=== PATIENT | female | born 1965 | race Caucasian/White ===

== ENCOUNTER → 2020-03-12 10:11 | Outpatient (BNVA) | payer OTHER, SELFPAY | PROVIDERS: Family Provider Family Medicine; Visit Provider Family Medicine | DX: Z20.828 Contact with and (suspected) exposure to other viral communicable diseases (principal) | CPT/HCPCS: 87635 ==

== ENCOUNTER 2020-04-11 11:31 | Outpatient (CLI) | payer OTHER, SELFPAY ==
--- NOTE | 2020-04-11 11:35 | MM_ITS ---
WS: [id number] BILATERAL SCREENING DIGITAL MAMMOGRAM WITH CAD HISTORY: SCREENING COMPARISON: 03/12/2018 Bilateral CC and MLO views submitted. Computer aided detection analyzed. Breast composition: There are scattered areas of fibroglandular density. No suspicious masses, microc alcifications or architectural distortion. Lobulated cystic mass with calcification in the inferior L EFT breast near 6:00 posteriorly is stable. No new calcifications or nodules. MM/[place] [id number] IMPRESSION: BI-RADS: 2-Benign FOLLOW UP: 1 Year Follow-up
== END 2020-04-11 11:32 | disposition home or self-care (01) ==
LOC: RADSHAW 11:34
PROVIDERS: Family Provider Family Medicine; PCP Family Medicine; Visit Provider Family Medicine
DX: Z12.31 Encounter for screening mammogram for malignant neoplasm of breast (principal)
CPT/HCPCS: 77067

== ENCOUNTER 2021-07-09 09:35 | Observation (INO) | payer OTHER, SELFPAY ==
[2021-07-09] VITALS (18 sets, daily range): BP systolic 149–192; BP diastolic 69–99; PULSE 67–98; RESP 15–29; TEMP 36.6–38.1; O2SAT 86–96; BMI 56.5
--- NOTE | 2021-07-09 09:41 | XR_ITS ---
WS: [id number] CHEST XRAY TECHNIQUE: Portable chest. CLINICAL INFORMATION: sob COMPARISON: FINDINGS: Shallow inspiration. Heart: Cardiomegaly appears stable compared to 2019. Lungs: Mild pulmonary vascular congestion. No focal pneumonia or significant pleural fluid. Bones: Normal visualized bony structures. XR/XR chest 1V portable [id number] IMPRESSION: 1. Stable cardiomegaly. 2. Shallow inspiration. 3. Mild pulmonary vascular congestion.
--- NOTE | 2021-07-09 09:41 | ECG_ITS ---
[facility] Test Date: 2021-07-09 Pat Name: Camilla Tavares Department: Room: Gender: Female Stain Dipper: : 1965 Requested By: Marlon Orozco Order Number: [id number] Aria MD: Remigio Sheldon M.D. Measurements Intervals [place] Rate: 78 P: 65 [place]: 179 QRS: 19 QRSD: 104 T: 70 QT: 379 QTc: 434 Interpretive Statements SINUS RHYTHM LOW QRS VOLTAGE IN PRECORDIAL LEADS [QRS DEFLECTION < 1.0 mV IN CHEST LEADS] INCOMPLETE RIGHT BUNDLE BRANCH BLOCK [90+ ms QRS DURATION, TERMINAL R IN V1/V2, 40+ ms S IN I/aVL/V4/V5/V6] Compared to ECG 03/05/2019 11:46:22 Low QRS voltage now present Incomplete right bundle-branch block now present Electronically Signed On 07-09-2021 22:38:37 CDT by Remigio Sheldon M.D. [id number]
--- NOTE | 2021-07-09 09:52 | PC.NURSE ---
Patient reports fever and shortness of breath. Patient states her pcp told her she gained 34 lbs recently, bilateral ankle swelling. Patient alert and oriented. patient reports stress in her life lately with family Patient in bed, denies any needs at this time.
--- NOTE | 2021-07-09 09:54 | W.ED.SOB ---
Documented by User: LANIE Chavarria 07/10/21 07:01 HPI - SOB/Dyspnea General: Chief Complaint: Shortness of Breath/Dyspnea Stated Complaint: shortness of breath Time Seen by Provider: 07/09/21 09:41 History of Present Illness: HPI Narrative: Patient is a 56-year-old female comes to the ED with shortness of breath. Past medical history of diabetes. Patient shortness of breath started yesterday. Shortness of breath gets worse if she lays flat or with exertion. This morning she used an at home pulse ox to check her oxygen levels after she got up and let the dogs out and she says it was at 78%. She also endorses having a fever yesterday as well. Denies any other upper respiratory symptoms such as cough, sore throat, nasal congestion. She has not been around anybody with Covid or influenza. She is fully vaccinated including her influenza and COVID-19 vaccinations. Patient also reports having some chest pain that started about 3 days ago. Pain is located in the midsternal region. It radiates to patient's back and she also endorses some epigastric pain as well. She admits to currently being under a lot of stress at home. The patient saw her primary care physician Dr. Bowman this morning. Patient has gained 34 pounds in the last 3 months and he told patient to come here to the ED to be evaluated. Associated symptoms: Reports chest pain, fever(s) and orthopnea; Deny abdominal pain, nausea, palpitations or vomiting Review of Systems Const: Reports: fever(s) and chills; Denies: fatigue Eyes: Denies: change in vision or eye discomfort ENMT: Denies: throat pain, odynophagia, nasal discharge or nasal congestion Card: Reports: chest pain, swelling of feet/ankles (Bilateral legs), dyspnea on exertion and orthopnea; Denies: palpitations Resp: Reports: dyspnea; Denies: productive cough or non-productive cough GI: Denies: abdominal pain, nausea, vomiting, diarrhea, constipation or hematochezia : Denies: flank pain, dysuria or hematuria Musc: Denies: neck pain, back pain or extremity swelling Skin/Breast: Denies: rash or new lesions Neuro: Reports: headache(s); Denies: numbness in extremities or weakness in extremities PFS ED PFSH: Medical History Diabetes Family history of MO (myocardial infarction) Family history of thyroid disease Surgical History (Updated 07/09/21 @ 19:18 by Wayne Gutierrez MD) H/O: hysterectomy Cancer No pertinent past surgical history Family History (Updated 07/09/21 @ 19:19 by Wayne Gutierrez MD) Sister Cancer Nasopharyngeal cancer, junctional tumor Other Diabetes Family history of premature coronary artery disease No pertinent family history Social History (Updated 07/09/21 @ 19:19 by Wayne Gutierrez MD) Smoking and tobacco status: never smoked Alcohol intake: never Substance/Drug Use: never Household members: family Housing: House Physical Exam Const: COMMON NORMALS: patient oriented x3 and alert GENERAL APPEARANCE: cooperative HENMT: COMMON NORMALS: normocephalic HEAD & SCALP: normocephalic MOUTH: Normal oral and palatal mucosa present THROAT: posterior oropharynx normal and uvula midline Neck/C-Spine: COMMON NORMALS: supple GENERAL: Yes normal visual inspection Resp: COMMON NORMALS: normal respiratory effort, No retractions and No use of accessory muscles AUSCULTATION: diminished lung sounds bilateral (Diminished lung sounds mostly on right lung base.) in the lower lung vincent Cardio: COMMON NORMALS: regular rate, regular rhythm, S1 normal heart sound present, S2 normal heart sound present, No gallops present (Cardio), No clicks present (Cardio), No murmurs present (Cardio) and Peripheral pulses 2+ throughout RATE: regular rate RHYTHM: regular rhythm HEART SOUNDS: S1 normal heart sound present and S2 normal heart sound present PERIPHERAL PULSES: Peripheral pulses 2+ throughout GI: COMMON NORMALS: Normal to inspection, nondistended, normoactive bowel sounds present, Soft to palpation, non-tender and no masses PALPATION: Yes Soft to palpation : COMMON NORMALS: Yes no CVA tenderness BLADDER/KIDNEY EXAM: Yes no CVA tenderness Back/Pelvis: COMMON NORMALS: no CVA tenderness Extremity: GENERAL: Yes edema ( 1+ pitting edema around bilateral ankles.) Neuro: COMMON NORMALS: patient oriented x3 and moves all extremities SENSORIUM/ORIENTATION: Yes alert Skin: GENERAL SKIN EXAM: dry skin Course Vital Signs: Vital signs: Vital Signs Temperature 97.7 F 07/10/21 04:00 Pulse Rate 52 L 07/10/21 06:00 Respiratory Rate 20 H 07/10/21 04:00 Blood Pressure 166/83 07/10/21 04:00 Pulse Oximetry 93 07/10/21 04:00 MDM - SOB/Dyspnea Medical Decision Making Patient is a 56 female comes to the ED with fever and shortness of breath. Patient has a history of type 2 diabetes. She is not on any oxygen at home. Here in the ED patient is hypoxic and has been around 90% on room air. Respirations 26. Patient also developed a fever here in the ED with a temperature of 100.5. White blood cell count is normal. Chest x-ray shows some mild vascular congestion. D-dimer elevated at 1.04. CTA of chest showed groundglass infiltrates in both lungs but is worse on the right side. No PE noted. Covid was negative. Patient appears to be developing right lung pneumonia that is causing hypoxemia. I started her on some IV antibiotics and a dose of Decadron here in the ED. Home O2 eval was performed and patient qualifies for 2 L continuously. I talk with Dr. Qiu about patient case and he is going to take over patient care and present case to hospitalist for possible admission. Lab Data I reviewed the patient's lab results. : 07/10/21 05:22 07/10/21 05:22 Labs/Radiology: Radiology Impressions Chest X-Ray 07/09/21 09:41 IMPRESSION: 1. Stable cardiomegaly. 2. Shallow inspiration. 3. Mild pulmonary vascular congestion. Chest CTA 07/09/21 11:16 IMPRESSION: Some images limited due to body habitus 1. No evidence of pulmonary embolus. 2. Hazy groundglass infiltrates throughout both lungs worse in the RIGHT. Recommend correlation for viral pneumonia including Covid 19 pneumonia 3. No focal consolidation or pleural fluid. Laboratory Results WBC 9.8 10^3/uL (4.0-10.0) 07/09/21 09:50 RBC 3.43 10^6/uL (4.1-5.3) L 07/09/21 09:50 Hgb 9.9 g/dL (11.5-15.3) L 07/09/21 09:50 Hct 33.2 % (37.0-47.0) L 07/09/21 09:50 MCV 96.8 fl (81-99) 07/09/21 09:50 MCH 28.9 pg (28.0-34.0) 07/09/21 09:50 MCHC 29.8 g/dL (30.0-36.0) L 07/09/21 09:50 RDW 15.2 % (12.1-15.1) H 07/09/21 09:50 Plt Count 224 10^3/cmm (130-400) 07/09/21 09:50 MPV 8.5 fL (7.4-10.4) 07/09/21 09:50 Neut % (Auto) 85.3 % 07/09/21 09:50 Lymph % (Auto) 9.7 % 07/09/21 09:50 [place] % (Auto) 3.6 % 07/09/21 09:50 Eos % (Auto) 0.8 % 07/09/21 09:50 Baso % (Auto) 0.2 % 07/09/21 09:50 Neut # (Auto) 8.31 10^3/uL (1.8-7.7) H 07/09/21 09:50 Lymph # (Auto) 1.0 10^3/uL (0.8-4.8) 07/09/21 09:50 [place] # (Auto) 0.4 10^3/uL (0.2-0.9) 07/09/21 09:50 Eos # (Auto) 0.1 10^3/uL (0.0-0.8) 07/09/21 09:50 Baso # (Auto) 0.0 10^3/uL (0.0-0.1) 07/09/21 09:50 Nucleated RBC % (auto) 0 % 07/09/21 09:50 Nucleated RBCs # 0.0 /100WBC 07/09/21 09:50 D-Dimer 1.04 ug/mIFEU (0-0.59) H 07/09/21 09:50 Sodium 139 mmol/L (136-145) 07/09/21 09:50 Potassium 4.7 mmol/L (3.5-5.1) 07/09/21 09:50 Chloride 99 mmol/L (98-107) 07/09/21 09:50 Carbon Dioxide 30 mmol/L (22-29) H 07/09/21 09:50 Anion Gap 14.7 (5-19) 07/09/21 09:50 BUN 8 mg/dL (6-20) 07/09/21 09:50 Creatinine 0.5 mg/dL (0.5-0.9) 07/09/21 09:50 GFR Calculation 128.6 mL/min (90-130) 07/09/21 09:50 Glucose 213 mg/dL (65-115) H 07/09/21 09:50 Estimat Average Glucose 140 07/09/21 09:50 Hemoglobin A1c 6.5 % (4.0-6.0) H 07/09/21 09:50 Calculated Osmolality 293 mOsm/kg (285-295) 07/09/21 09:50 Calcium 9.5 mg/dL (8.5-10.5) 07/09/21 09:50 Total Bilirubin 0.4 mg/dL (0.15-1.2) 07/09/21 09:50 AST 15 U/L (0-32) 07/09/21 09:50 ALT 19 U/L (0-33) 07/09/21 09:50 Alkaline Phosphatase 111 IU/L (35-105) H 07/09/21 09:50 Troponin T Baseline 9 ng/L (0-10) 07/09/21 09:50 Troponin T 120 Minute 11.41 ng/L (0-10) H 07/09/21 12:10 Delta Troponin T 2.41 ABS# (0-10) 07/09/21 12:10 NT-Pro-B Natriuret Pep 187 pg/mL (0-125) H 07/09/21 09:50 Total Protein 6.3 g/dL (6.6-8.7) L 07/09/21 09:50 Albumin 4.2 g/dL (3.5-5.2) 07/09/21 09:50 Globulin 2.1 g/dL (1.3-4.6) 07/09/21 09:50 Nasal Influ A H1 2009 PCR Not detected (NOT DETECT) 07/09/21 09:55 Coronavirus 229E (PCR) Not detected (NOT DETECT) 07/09/21 09:55 Influenza A (H1) PCR Not detected (NOT DETECT) 07/09/21 09:55 Influenza A (H3) PCR Not detected (NOT DETECT) 07/09/21 09:55 Influenza Type A Ag Cancelled 07/09/21 11:45 Influenza Type A (PCR) Not detected (NOT DETECT) 07/09/21 09:55 Influenza Type B Ag Cancelled 07/09/21 11:45 Influenza Type B (PCR) Not detected (NOT DETECT) 07/09/21 09:55 SARS-CoV-2 (PCR) Not detected (NOT DETECT) 07/09/21 09:55 EKG Data EKG 1: EKG Interpretation Date: 07/09/21 EKG interpretation time: 09:59 Interpretation: Sinus rhythm, 78 bpm, no ST segment elevation or depression seen. Discharge Plan Discharge Patient Disposition: Admitted As Inpatient Admit Provider: Wayne Gutierrez Clinical Impression: Pneumonia, Hypoxemia Condition: Stable Sign Out Sign Out Data: Patient Sign Out occurred on 07/09/21 at 13:29. Patient's care was discussed, and care was transferred from to Kurtis Qiu MD. Coding Level of Care Code ED Duplicator Punch Operator for Chg Fwd Exam Comprehensive Documented by User: Kurtis Qiu MD 07/09/21 15:24 HPI - SOB/Dyspnea General: Chief Complaint: Shortness of Breath/Dyspnea Stated Complaint: shortness of breath Time Seen by Provider: 07/09/21 09:41 PFSH ED PFSH: Medical History Diabetes Family history of MO (myocardial infarction) Family history of thyroid disease Surgical History (Updated 07/09/21 @ 19:18 by Wayne Gutierrez MD) H/O: hysterectomy Cancer No pertinent past surgical history Family History (Updated 07/09/21 @ 19:19 by Wayne Gutierrez MD) Sister Cancer Nasopharyngeal cancer, junctional tumor Other Diabetes Family history of premature coronary artery disease No pertinent family history Social History (Updated 07/09/21 @ 19:19 by Wayne Gutierrez MD) Smoking and tobacco status: never smoked Alcohol intake: never Substance/Drug Use: never Household members: family Housing: House Course Vital Signs: Vital signs: Vital Signs Temperature 97.7 F 07/10/21 04:00 Pulse Rate 52 L 07/10/21 06:00 Respiratory Rate 20 H 07/10/21 04:00 Blood Pressure 166/83 07/10/21 04:00 Pulse Oximetry 93 07/10/21 04:00 MDM - SOB/Dyspnea Medical Decision Making Patient is a 56 female comes to the ED with fever and shortness of breath. Patient has a history of type 2 diabetes. She is not on any oxygen at home. Here in the ED patient is hypoxic and has been around 90% on room air. Respirations 26. Patient also developed a fever here in the ED with a temperature of 100.5. White blood cell count is normal. Chest x-ray shows some mild vascular congestion. D-dimer elevated at 1.04. CTA of chest showed groundglass infiltrates in both lungs but is worse on the right side. No PE noted. Covid was negative. Patient appears to be developing right lung pneumonia that is causing hypoxemia. I started her on some IV antibiotics and a dose of Decadron here in the ED. GIVEN THE FACT THE PATIENT IS COVID NEGATIVE, HAS INCREASED WORK OF BREATHING, NEW OXYGEN REQUIREMENT, BILATERAL INFILTRATE, presentation IS CONCERNING FOR POSSIBLE BACTERIAL PNEUMONIA. I talk with Dr. Qiu about patient case and he is going to take over patient care and present case. Lab Data : 07/10/21 05:22 07/10/21 05:22 Labs/Radiology: Radiology Impressions Chest X-Ray 07/09/21 09:41 IMPRESSION: 1. Stable cardiomegaly. 2. Shallow inspiration. 3. Mild pulmonary vascular congestion. Chest CTA 07/09/21 11:16 IMPRESSION: Some images limited due to body habitus 1. No evidence of pulmonary embolus. 2. Hazy groundglass infiltrates throughout both lungs worse in the RIGHT. Recommend correlation for viral pneumonia including Covid 19 pneumonia 3. No focal consolidation or pleural fluid. Laboratory Results WBC 9.8 10^3/uL (4.0-10.0) 07/09/21 09:50 RBC 3.43 10^6/uL (4.1-5.3) L 07/09/21 09:50 Hgb 9.9 g/dL (11.5-15.3) L 07/09/21 09:50 Hct 33.2 % (37.0-47.0) L 07/09/21 09:50 MCV 96.8 fl (81-99) 07/09/21 09:50 MCH 28.9 pg (28.0-34.0) 07/09/21 09:50 MCHC 29.8 g/dL (30.0-36.0) L 07/09/21 09:50 RDW 15.2 % (12.1-15.1) H 07/09/21 09:50 Plt Count 224 10^3/cmm (130-400) 07/09/21 09:50 MPV 8.5 fL (7.4-10.4) 07/09/21 09:50 Neut % (Auto) 85.3 % 07/09/21 09:50 Lymph % (Auto) 9.7 % 07/09/21 09:50 [place] % (Auto) 3.6 % 07/09/21 09:50 Eos % (Auto) 0.8 % 07/09/21 09:50 Baso % (Auto) 0.2 % 07/09/21 09:50 Neut # (Auto) 8.31 10^3/uL (1.8-7.7) H 07/09/21 09:50 Lymph # (Auto) 1.0 10^3/uL (0.8-4.8) 07/09/21 09:50 [place] # (Auto) 0.4 10^3/uL (0.2-0.9) 07/09/21 09:50 Eos # (Auto) 0.1 10^3/uL (0.0-0.8) 07/09/21 09:50 Baso # (Auto) 0.0 10^3/uL (0.0-0.1) 07/09/21 09:50 Nucleated RBC % (auto) 0 % 07/09/21 09:50 Nucleated RBCs # 0.0 /100WBC 07/09/21 09:50 D-Dimer 1.04 ug/mIFEU (0-0.59) H 07/09/21 09:50 Sodium 139 mmol/L (136-145) 07/09/21 09:50 Potassium 4.7 mmol/L (3.5-5.1) 07/09/21 09:50 Chloride 99 mmol/L (98-107) 07/09/21 09:50 Carbon Dioxide 30 mmol/L (22-29) H 07/09/21 09:50 Anion Gap 14.7 (5-19) 07/09/21 09:50 BUN 8 mg/dL (6-20) 07/09/21 09:50 Creatinine 0.5 mg/dL (0.5-0.9) 07/09/21 09:50 GFR Calculation 128.6 mL/min (90-130) 07/09/21 09:50 Glucose 213 mg/dL (65-115) H 07/09/21 09:50 Estimat Average Glucose 140 07/09/21 09:50 Hemoglobin A1c 6.5 % (4.0-6.0) H 07/09/21 09:50 Calculated Osmolality 293 mOsm/kg (285-295) 07/09/21 09:50 Calcium 9.5 mg/dL (8.5-10.5) 07/09/21 09:50 Total Bilirubin 0.4 mg/dL (0.15-1.2) 07/09/21 09:50 AST 15 U/L (0-32) 07/09/21 09:50 ALT 19 U/L (0-33) 07/09/21 09:50 Alkaline Phosphatase 111 IU/L (35-105) H 07/09/21 09:50 Troponin T Baseline 9 ng/L (0-10) 07/09/21 09:50 Troponin T 120 Minute 11.41 ng/L (0-10) H 07/09/21 12:10 Delta Troponin T 2.41 ABS# (0-10) 07/09/21 12:10 NT-Pro-B Natriuret Pep 187 pg/mL (0-125) H 07/09/21 09:50 Total Protein 6.3 g/dL (6.6-8.7) L 07/09/21 09:50 Albumin 4.2 g/dL (3.5-5.2) 07/09/21 09:50 Globulin 2.1 g/dL (1.3-4.6) 07/09/21 09:50 Nasal Influ A H1 2008 PCR Not detected (NOT DETECT) 07/09/21 09:55 Coronavirus 229E (PCR) Not detected (NOT DETECT) 07/09/21 09:55 Influenza A (H1) PCR Not detected (NOT DETECT) 07/09/21 09:55 Influenza A (H3) PCR Not detected (NOT DETECT) 07/09/21 09:55 Influenza Type A Ag Cancelled 07/09/21 11:45 Influenza Type A (PCR) Not detected (NOT DETECT) 07/09/21 09:55 Influenza Type B Ag Cancelled 07/09/21 11:45 Influenza Type B (PCR) Not detected (NOT DETECT) 07/09/21 09:55 SARS-CoV-2 (PCR) Not detected (NOT DETECT) 07/09/21 09:55 Imaging Data Other Imaging: Radiologist's impression: [facility] [address] [address] [address] Scan Report Signed Patient: Camilla Tavares Unit #: [id number] : 1965 Age/Sex: 56 / F ADM Date: 07/09/21 Loc: ER Room/Bed: Attending Dr: Ordering Provider/Ordering MD: Marlon Orozco Date of Service: 07/09/21 Procedure(s): CT angio chest PE protcl [id number] Accession Number(s): [id number] Report Number: [id number] WS: [id number] CTA OF THE CHEST WITH PULMONARY EMBOLISM PROTOCOL TECHNIQUE: High-resolution contrast enhanced CTA of the chest with coronal and sagittal reformatted images with pulmonary embolism protocol. MIP images are also reviewed. CLINICAL INFORMATION: SOB, CP, tachypnea COMPARISON: 3 26,017 DLP: 597.[address] scans at [facility] use at least one of these dose optimization techniques: automated exposure control; mA and/or kV adjustment per patient size (includes targeted exams where dose is matched to clinical indication); or iterative reconstruction. FINDINGS: Some images degraded due to body habitus Proximal main pulmonary arteries are normal. Normal segmental pulmonary arteries. Distal most pulmonary arteries not well evaluated due to artifact. Hazy groundglass infiltrates throughout both lungs worse in the RIGHT upper and lower lobes. No focal consolidation or pleural fluid. Recommend correlation for viral pneumonia. Normal caliber thoracic aorta. No mediastinal or hilar lymphadenopathy. No axillary lymphadenopathy. Hepatomegaly. Normal GE junction. Celiac and SMA are patent in the upper abdomen. Hypertrophic changes thoracic spine. CT/CT angio chest PE protcl [id number] IMPRESSION: Some images limited due to body habitus ? 1.? No evidence of pulmonary embolus. 2.? Hazy groundglass infiltrates throughout both lungs worse in the RIGHT. Recommend correlation for viral pneumonia including Covid 19 pneumonia 3.? No focal consolidation or pleural fluid. ? Dictated By: Jim Qureshi MD Signed By: Jim Qureshi MD Signed Date/Time: 07/09/21 1237 DD/ [address] [address] XRay Report Signed Patient: Camilla Tavares Unit #: [id number] : 1965 Age/Sex: 56 / F ADM Date: 07/09/21 Loc: ER Room/Bed: Attending Dr: Ordering Provider/Ordering MD: Marlon Orozco Date of Service: 07/09/21 Procedure(s): XR chest 1V portable [id number] Accession Number(s): [id number] Report Number: [id number] WS: [id number] CHEST XRAY TECHNIQUE: Portable chest. CLINICAL INFORMATION: sob COMPARISON: FINDINGS: Shallow inspiration. Heart: Cardiomegaly appears stable compared to 2019. Lungs: Mild pulmonary vascular congestion. No focal pneumonia or significant pleural fluid. Bones: Normal visualized bony structures. XR/XR chest 1V portable [id number] IMPRESSION: ? 1.? Stable cardiomegaly. 2.? Shallow inspiration. 3.? Mild pulmonary vascular congestion. ? Dictated By: Jim Qureshi MD Signed By: Jim Qureshi MD Signed Date/Time: 07/09/21 1015 DD/ 1013 Discharge Plan Discharge Patient Disposition: Admitted As Inpatient Admit Provider: Wayne Gutierrez Clinical Impression: Pneumonia, Hypoxemia Condition: Stable Sign Out Sign Out Data: Patient Sign Out occurred on 07/09/21 at 13:29. Patient's care was discussed, and care was transferred from to Kurtis Qiu MD. Coding Level of Care Code ED Duplicator Punch Operator for Chg Fwd Exam Comprehensive
[2021-07-09 09:57] LABS: Basophils % 0.2 %; Eosinophils # 0.1 10^3/uL (0.0-0.8); Eosinophils % 0.8 %; Hematocrit 33.2 % (37.0-47.0); Hemoglobin 9.9 g/dL (11.5-15.3); Lymphocytes % 9.7 %; Mean Corpuscular HGB Conc 29.8 g/dL (30.0-36.0); Mean Corpuscular Hemoglobin 28.9 pg (28.0-34.0); Mean Corpuscular Volume 96.8 fl (81-99); Mean Platelet Volume 8.5 fL (7.4-10.4); Monocytes # 0.4 10^3/uL (0.2-0.9); Monocytes % 3.6 %; Neutrophils # 8.31 10^3/uL (1.8-7.7); Neutrophils % 85.3 %; Nucleated Red Blood Cells % 0 %; Platelet Count 224 10^3/cmm (130-400); Red Blood Count 3.43 10^6/uL (4.1-5.3); Red Cell Distribution Width 15.2 % (12.1-15.1); White Blood Count 9.8 10^3/uL (4.0-10.0)
--- NOTE | 2021-07-09 10:13 | PC.NURSE ---
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
[2021-07-09 10:24] LABS: D Dimer 1.04 ug/mIFEU (0-0.59)
[2021-07-09 10:37] LABS: Troponin(5th) Baseline 9 ng/L (0-10)
[2021-07-09 10:43] LABS: Alanine Aminotransferase 19 U/L (0-33); Albumin Level 4.2 g/dL (3.5-5.2); Alkaline Phosphatase 111 IU/L (35-105); Anion Gap 14.7 (5-19); Aspartate Amino Transferase 15 U/L (0-32); Blood Urea Nitrogen 8 mg/dL (6-20); Calcium 9.5 mg/dL (8.5-10.5); Carbon Dioxide 30 mmol/L (22-29); Chloride 99 mmol/L (98-107); Globulin 2.1 g/dL (1.3-4.6); Glomerular Filtration Rate 128.6 mL/min (90-130); Glucose 213 mg/dL (65-115); NT Pro B Type Natriuretic Pept 187 pg/mL (0-125); Osmolality Calculated 293 mOsm/kg (285-295); Potassium 4.7 mmol/L (3.5-5.1); Sodium 139 mmol/L (136-145); Total Bilirubin 0.4 mg/dL (0.15-1.2); Total Protein 6.3 g/dL (6.6-8.7)
--- NOTE | 2021-07-09 11:16 | CT_ITS ---
WS: [id number] CTA OF THE CHEST WITH PULMONARY EMBOLISM PROTOCOL TECHNIQUE: High-resolution contrast enhanced CTA of the chest with coronal and sagittal reformatted i mages with pulmonary embolism protocol. MIP images are also reviewed. CLINICAL INFORMATION: SOB, CP, tachypnea COMPARISON: 3 26,017 DLP: 597.[address] scans at [facility] use at least one of these dose optimization techniques: automated e xposure control; mA and/or kV adjustment per patient size (includes targeted exams where dose is matc hed to clinical indication); or iterative reconstruction. FINDINGS: Some images degraded due to body habitus Proximal main pulmonary arteries are normal. Normal segmental pulmonary arteries. Distal most pulmona ry arteries not well evaluated due to artifact. Hazy groundglass infiltrates throughout both lungs wo rse in the RIGHT upper and lower lobes. No focal consolidation or pleural fluid. Recommend correlatio n for viral pneumonia. Normal caliber thoracic aorta. No mediastinal or hilar lymphadenopathy. No axillary lymphadenopathy. Hepatomegaly. Normal GE junction. Celiac and SMA are patent in the upper abdomen. Hypertrophic change s thoracic spine. CT/CT angio chest PE protcl [id number] IMPRESSION: Some images limited due to body habitus 1. No evidence of pulmonary embolus. 2. Hazy groundglass infiltrates throughout both lungs worse in the RIGHT. Farhan mmend correlation for viral pneumonia including Covid 19 pneumonia 3. No focal consolidation or pleural fluid.
--- NOTE | 2021-07-09 11:41 | ECG_ITS ---
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 Measurements Intervals [place] Rate: 82 P: 46 [place]: 162 QRS: -3 QRSD: 104 T: 46 QT: 374 QTc: 438 Interpretive Statements SINUS RHYTHM LOW QRS VOLTAGE IN PRECORDIAL LEADS [QRS DEFLECTION < 1.0 mV IN CHEST LEADS] INCOMPLETE RIGHT BUNDLE BRANCH BLOCK [90+ ms QRS DURATION, TERMINAL R IN V1/V2, 40+ ms S IN I/aVL/V4/V5/V6] Compared to ECG 07/09/2021 09:59:36 No significant changes Electronically Signed On 07-09-2021 22:59:19 CDT by Reimgio Sheldon M.D. [id number]
[2021-07-09] MEDS: iohexol 350 mg/mL 100 mL Btl IV (12:10)
[2021-07-09] MEDS: ketorolac 30 mg/mL INJ IVP (12:13)
[2021-07-09 12:25] LABS: Adenovirus Not Detected (NOT DETECT); Chlamydia Pneumoniae Not Detected (NOT DETECT); Coronavirus 229E,HKU1,NL63,OC4 Not Detected (NOT DETECT); Human Metapneumovirus Not Detected (NOT DETECT); Human Rhinovirus/Enterovirus Not Detected (NOT DETECT); Influenza A Not Detected (NOT DETECT); Influenza A H1 Not Detected (NOT DETECT); Influenza A H1-2009 Not Detected (NOT DETECT); Influenza A H3 Not Detected (NOT DETECT); Influenza B Not Detected (NOT DETECT); Mycoplasma Pneumoniae Not Detected (NOT DETECT); Parainfluenza Virus Type 1 Not Detected (NOT DETECT); Parainfluenza Virus Type 2 Not Detected (NOT DETECT); Parainfluenza Virus Type 3 Not Detected (NOT DETECT); Parainfluenza Virus Type 4 Not Detected (NOT DETECT); Respiratory Syncytial Virus A Not Detected (NOT DETECT); Respiratory Syncytial Virus B Not Detected (NOT DETECT); SARS-COV-2 Not Detected (NOT DETECT)
[2021-07-09 12:44] LABS: Troponin 5 2HR 11.41 ng/L (0-10)
[2021-07-09 12:48] LABS: Troponin 5 2HR Delta 2.41 ABS# (0-10)
[2021-07-09] MEDS: acetaminophen 500 mg Tablet 1000 MG PO (13:24)
[2021-07-09] MEDS: dexamethasone 4 mg/mL INJ 8 MG IVP (13:25)
[2021-07-09] MEDS: cefTRIAXone 1,000 MG in sodium chloride 0.9% (plus) 50 ML 100 MG IV (13:54)
[2021-07-09] MEDS: azithromycin 500 MG in sodium chloride 0.9% 250 ML 250 MG IV (13:57)
[2021-07-09 14:25] LABS: Influenza A Not Detected (NOT DETECT); Influenza A H1 Not Detected (NOT DETECT); Influenza A H1-2009 Not Detected (NOT DETECT); Influenza A H3 Not Detected (NOT DETECT); Influenza B Not Detected (NOT DETECT); Results from Genmark
--- NOTE | 2021-07-09 15:41 | ECG_ITS ---
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 Measurements Intervals [place] Rate: 74 P: 64 [place]: 183 QRS: -16 QRSD: 109 T: 66 QT: 414 QTc: 461 Interpretive Statements SINUS RHYTHM INCOMPLETE RIGHT BUNDLE BRANCH BLOCK [90+ ms QRS DURATION, TERMINAL R IN V1/V2, 40+ ms S IN I/aVL/V4/V5/V6] Compared to ECG 07/09/2021 12:20:10 No significant changes Electronically Signed On 07-09-2021 23:01:47 CDT by Remigio Sheldon M.D. [id number]
[2021-07-09 16:20] LABS: Troponin 5 6HR 10.01 ng/L (0-10)
[2021-07-09 16:30] LABS: Troponin 5 6HR Delta 1.01 ng/L (0-12)
--- NOTE | 2021-07-09 16:53 | PC.NURSE ---
Attempted to call report, receiving RN is unable to get report at this time.
--- NOTE | 2021-07-09 17:26 | P.HP_ITS ---
Providers/Chief Complaint Admitting Physician: Wayne Gutierrez MD Primary Care Provider: Marlon Bowman MD Chief Complaint: shortness of breath History of Present Illness Camilla Tavares is a 56 year old female who has history of diabetes, hypertension, underage anemia, came in for chief complaint of worsening shortness of breath. Patient has been experiencing orthopnea, PND, weight gain along fever for last few days. As per the patient she has gained about 34 pounds in 90 days. For last 4 day her shortness of breath has been getting worse, especially got worse in supine position, endorsing orthopnea PND. Low- grade fever noted as well. She is vaccinated. This morning her O2 saturation was 78% room air when she let her dogs out. With her shortness of breath chest pain is also associated with radiation to her back and epigastric region. Patient is stating that her symptoms roughly started on Thursday, symptoms gradually got worse, she also spiked fever 102 at home, she has not noticed any diarrhea, chest pain, emesis. She is endorsing neck pain, left arm pain however no active chest pain. She is endorsing to snoring at night. Does not use oxygen at home. In the ER she was requiring 2 L of oxygen, which is new, she was given ceftriaxone azithromycin however viral panel is negative, cta did not show any signs of consolidation or pe, convalesced opacities could be secondary to chf, requested bnp, lasix iv dose 60 mg, Review of Systems Const: Reports: fever(s), chills, body aches, change in weight and fatigue Eyes: Reports: change in vision ENMT: Denies: throat pain Card: Reports: chest pain, swelling of feet/ankles, dyspnea on exertion and orthopnea Resp: Reports: dyspnea GI: Denies: abdominal pain : Denies: flank pain Musc: Denies: neck pain Skin/Breast: Denies: rash Neuro: Denies: headache(s) Psych: Reports: anxiety Endo: Denies: polyuria [place]/Lymph: Denies: easy bruising All/Imm: Denies: urticaria Medications/Allergies Home Medications Medication Instructions Recorded Confirmed Last Taken Type acetaminophen 500 mg tablet 1,000 mg PO Q6H PRN 07/09/21 07/09/21 Unknown History dulaglutide 1.5 mg/0.5 mL 1.5 mg SUBCUT Q7D 07/09/21 07/09/21 07/07/21 History subcutaneous pen injector (Trulicity) ferrous sulfate 325 mg (65 mg 325 mg PO BEDTIME 07/09/21 07/09/21 07/07/21 History iron) tablet (iron) fluoxetine 40 mg capsule 60 mg PO BEDTIME 07/09/21 07/09/21 07/07/21 History hydrochlorothiazide 12.5 mg tablet 12.5 mg PO BEDTIME 07/09/21 07/09/21 07/07/21 History ibuprofen 200 mg tablet 400 mg PO Q6H PRN 07/09/21 07/09/21 Unknown History insulin glargine 100 unit/mL (3 See Rx Instructions .ROUTE .COMPLEX 07/09/21 07/09/21 Unknown History mL) subcutaneous pen (Lantus Solostar U-100 Insulin) lisinopril 10 mg tablet 10 mg PO BEDTIME 07/09/21 07/09/21 07/07/21 History metformin 500 mg tablet,extended 500 mg PO BEDTIME 07/09/21 07/09/21 07/07/21 History release 24 hr last filled 05/06/21 potassium chloride 10 mEq 10 meq PO BEDTIME 07/09/21 07/09/21 07/07/21 History tablet,extended release rosuvastatin 20 mg tablet 20 mg PO BEDTIME 07/09/21 07/09/21 07/07/21 History sitagliptin 100 mg tablet (Januvia) 100 mg PO BEDTIME 07/09/21 07/09/21 07/07/21 History Allergies Allergy/AdvReac Type Severity Reaction Status Date / Time No Known Allergies Allergy Verified 07/09/21 11:32 PFSH Acute PFSH: Medical History Diabetes Family history of [place] (myocardial infarction) Family history of thyroid disease Surgical History (Updated 07/09/21 @ 19:18 by Wayne Gutierrez MD) H/O: hysterectomy Cancer No pertinent past surgical history Family History (Updated 07/09/21 @ 19:19 by Wayne Gutierrez MD) Sister Cancer Nasopharyngeal cancer, junctional tumor Other Diabetes Family history of premature coronary artery disease No pertinent family history Social History (Updated 07/09/21 @ 19:19 by Wayne Gutierrez MD) Smoking and tobacco status: never smoked Alcohol intake: never Substance/Drug Use: never Household members: family Housing: House Vitals/I&O/Wt Last Vital Signs Temp 100.5 F H 07/09/21 13:20 Pulse 95 07/09/21 14:25 Resp 26 H 07/09/21 14:25 BP 149/76 07/09/21 14:25 Pulse Ox 93 07/09/21 14:25 07/09/21 07/09/21 07/09/21 06:59 14:59 22:59 Intake Total 300 / 300 Balance 300 / 300 Weight last 48 hrs Weight 158.757 kg Physical Exam Narrative: Morbid obese female Currently on 2 L cannula Febrile Pedal edema Abdomen is soft, nontender EOMI, PERRLA Nonfocal neuro exam S1, S2 sinus rhythm Pedal edema 3+ Currently on 2 L nasal cannula No active labored breathing No conversational dyspnea Very comfortable Family at the bedside Data : 07/09/21 09:50 07/09/21 09:50 A&P Assessment and plan (1) Pneumonia: Status: Acute (2) Hypoxemia: Status: Acute Plan Acute hypoxia Likely related to underlying CHF Patient is endorsing to snoring, will do overnight pulse ox study, rule out sleep apnea We will request BNP and echo Will Give her 1 dose of Lasix IV She was treated for community-acquired pneumonia with ceftriaxone and azithromycin which I will continue for now We will keep her on cardiac consistent carb diet For diabetes keep her on sliding scale check A1c level DuoNeb every 4 as needed D-dimer is high however no signs of PE, will check venous Doppler Viral panel negative , Sputum culture Cardiac consistent carb diet Patient is full code Attestations Medical Necessity Statement*: For acute hypoxemia patient will need observation less than 48 hours in the hospital Time Spent in Patient Care: 35mins Coding Level of Care Code 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
--- NOTE | 2021-07-09 17:31 | USCV_ITS ---
Camilla Tavares Age: 56 Gender: F : 1965 Exam Date: 07/09/2021 21:44 Ordering Phys: Wayne Gutierrez MD Technologist: Hunter Shaver Exam Location: [facility] [place] Indication: Congestive heart failure BP: / HR: 72 Rhythm: Sinus Technical Quality: Technically difficult study MEASUREMENTS (Male / Female) Normal Values 2D ECHO LV Diastolic Diameter PLAX 3.0 cm 4.2 - 5.9 / 3.9 - 5.3 cm LV Systolic Diameter PLAX 1.6 cm IVS Diastolic Thickness 1.2 cm 0.6 - 1.0 / 0.6 - 0.9 cm IVS Systolic Thickness 1.8 cm LVPW Diastolic Thickness 1.5 cm 0.6 - 1.0 / 0.6 - 0.9 cm LVPW Systolic Thickness 1.8 cm LVOT Diameter 2.0 cm LV Ejection Fraction 2D Teich 79.4 % LV Ejection Fraction MOD 2C 70.1 % LV Ejection Fraction 2C AL 69.5 % LA Diameter 4.3 cm LA Width 3.8 cm LA Height 6.1 cm Aorta at Sinotubular Diameter 3.0 cm M-MODE Aortic Annulus Diameter 2.7 cm LA Ao Ratio MM 2.0 MV E Point Septal Separation 1.4 cm DOPPLER AV Peak Velocity 214.0 cm/s LVOT Peak Velocity 86.0 cm/s AV Area Cont Eq vti 1.4 cm squared AV Area Cont Eq pk 1.3 cm squared MV Peak Velocity 93.0 cm/s MV Area PHT 4.3 cm squared Mitral E to A Ratio 1.0 MV E' Velocity 48.0 cm/s Mitral E to MV E' Ratio 9.5 Mitral E to LV E' Lateral Ratio 10.0 Mitral E to LV E' Septal Ratio 9.1 TR Peak Velocity 146.7 cm/s TR Peak Gradient 8.6 mmHg TR Mean Velocity 88.8 cm/s TR Mean Gradient 3.7 mmHg TR Velocity Time Integral 30.3 cm Right Atrial Pressure 13.0 mmHg Pulmonary Artery Systolic Pressu 21.6 mmHg PV Peak Velocity 127.0 cm/s RV Acceleration Time 0.1 s RV Ejection Time 0.3 s RV AcT/ET 0.3 FINDINGS Left Ventricle Normal left ventricular cavity size. Normal left ventricular systolic function. Left ventricular ejection fraction is estimated at 60-65 %. Although no diagnostic regional wall motion abnormality could be identified, this possibility cannot be completely excluded. Interpretation limited by off axis images Normal diastolic function. Right Ventricle Normal right ventricular size and systolic function. Right ventricular systolic pressure 26 mmHg. Right Atrium Normal right atrial size. Right atrial pressure estimated at 15 mmHg. Left Atrium Mildly increased left atrial size. Mitral Valve Structurally normal mitral valve. No mitral valve stenosis. No significant mitral valve regurgitation. Aortic Valve Aortic valve not well visualized. No aortic valve stenosis. No aortic valve regurgitation. Tricuspid Valve Tricuspid valve not well visualized. Pulmonic Valve Pulmonic valve not well visualized. No pulmonary valve stenosis. Trace pulmonary valve regurgitation. Pericardium No pericardial effusion. Aorta Normal size aortic root and proximal ascending aorta. Dilated inferior vena cava with decreased respiratory respiratory variation. CONCLUSIONS 1. This is a technically difficult study with off axis images. 2. Normal left ventricular cavity size and systolic function. Left ventricular ejection fraction is estimated at 60-65 %. Although no diagnostic regional wall motion abnormality could be identified, this possibility cannot be completely excluded. Normal diastolic function. 3. Dilated inferior vena cava with decreased respiratory respiratory variation. 4. Right atrial pressure estimated at 15 mmHg. 5. Pulmonary artery pressure estimated at 26 mmHg. 6. No prior similar studies to compare. Eugenia Suero MD (Electronically Signed) Final Date: 10 July 2021 11:55 S
[2021-07-09 17:59] LABS: NT Pro B Type Natriuretic Pept 264 pg/mL (0-125); Procalcitonin 0.09 ng/mL (0-0.5)
--- NOTE | 2021-07-09 18:10 | PC.NURSE ---
Report give to floor.
[2021-07-09 18:44] LABS: Glucose Point of Care 274 mg/dL (70-110)
[2021-07-09] MEDS: insulin lispro 100 unit/1 mL SUBCUT (18:45)
[2021-07-09] MEDS: FUROsemide 10 mg/mL SDV 10mL 60 MG IVP (18:46)
[2021-07-09] MEDS: acetaminophen 500 mg Tablet PO (19:25)
[2021-07-09] MEDS: enoxaparin 40 mg/0.4 mL Syringe SUBCUT (20:32)
[2021-07-09] MEDS: ferrous sulfate EC 325 mg Tablet PO (20:32)
[2021-07-09] MEDS: hydroCHLOROthiazide 25 mg Tablet 12.5 MG PO (20:32)
[2021-07-09] MEDS: lisinopril 10 mg Tablet PO (20:33)
[2021-07-09 21:20] LABS: Glucose Point of Care 288 mg/dL (70-110)
[2021-07-09] MEDS: insulin glargine 100 units/1 mL 90 UNIT SUBCUT (21:43)
[2021-07-09 22:04] LABS: Estmated Average Glucose 140; Hemoglobin A1C 6.5 % (4.0-6.0)
[2021-07-10] VITALS (13 sets, daily range): BP systolic 127–166; BP diastolic 71–88; PULSE 52–85; RESP 13–21; TEMP 36.5–36.9; O2SAT 82–97
[2021-07-10] MEDS: acetaminophen 500 mg Tablet PO ×2 (03:38→14:56)
[2021-07-10 05:24] LABS: ABG PCO2 52.7 mmHg (35-45); Arterial Blood Gas Hematocrit 30.8 % (37-47); Base Excess ABG 6.5 mmol/L (-2.0-2.0); Blood Gas Allen Test Pos; Blood Gas Sample Type Arterial; HCO3 ABG 32.4 mmol/L (22-26); PO2 ABG 90.2 mmHg (80.0-100.0)
[2021-07-10 05:25] LABS: Blood Gas Sample Site Radial, right; Oxygen Device NC
[2021-07-10 05:36] LABS: Basophils % 0.1 %; Hemoglobin 9.8 g/dL (11.5-15.3); Lymphocytes % 8.4 %; Mean Corpuscular HGB Conc 29.7 g/dL (30.0-36.0); Mean Corpuscular Hemoglobin 28.7 pg (28.0-34.0); Mean Corpuscular Volume 96.8 fl (81-99); Mean Platelet Volume 9.2 fL (7.4-10.4); Monocytes # 0.3 10^3/uL (0.2-0.9); Monocytes % 2.6 %; Neutrophils # 10.46 10^3/uL (1.8-7.7); Neutrophils % 88.4 %; Nucleated Red Blood Cells % 0 %; Platelet Count 249 10^3/cmm (130-400); Red Blood Count 3.41 10^6/uL (4.1-5.3); Red Cell Distribution Width 14.9 % (12.1-15.1); White Blood Count 11.8 10^3/uL (4.0-10.0)
[2021-07-10 05:47] LABS: Carbon Dioxide 28 mmol/L (22-29); Potassium 4.8 mmol/L (3.5-5.1); Sodium 137 mmol/L (136-145)
[2021-07-10 06:06] LABS: Anion Gap 16.8 (5-19); Blood Urea Nitrogen 12 mg/dL (6-20); C Reactive Protein 84.2 mg/L (0.0-4.9); Calcium 9.8 mg/dL (8.5-10.5); Chloride 97 mmol/L (98-107); Glomerular Filtration Rate 128.6 mL/min (90-130); Glucose 265 mg/dL (65-115); Magnesium 1.8 mg/dL (1.7-2.3); Osmolality Calculated 293 mOsm/kg (285-295)
[2021-07-10 06:14] LABS: Glucose Point of Care 222 mg/dL (70-110)
--- NOTE | 2021-07-10 06:21 | PC.NURSE ---
PATIENT STATES SHE WILL GET UP TO CHAIR WHEN IT IS CLOSER TO BREAKFAST TIME. PATIENT IS AD SHIVANI, ACTIVITY ENCOURAGED.
[2021-07-10] MEDS: sennosides-docusate Tablet 1 TAB PO (08:09)
[2021-07-10] MEDS: azithromycin 250 mg Tablet 500 MG PO (08:09)
[2021-07-10] MEDS: insulin lispro 100 unit/1 mL SUBCUT ×3 (08:09→18:23)
[2021-07-10] MEDS: FUROsemide 40 mg Tablet PO (08:09)
--- NOTE | 2021-07-10 09:54 | PC.CHAP ---
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 [] Patient/Family/Request visit [] Outpatient visit [] Follow-up visit [] Physician referral [] Code/Alert x] Routine visit [] Staff referral [] Actively dying [] Patient sleeping [] Family support [] [] Out of room [] Palliative care [] [] Receiving care in room [] Pre-surgical visit [] Trauma [] Long length of stay [] ICU visit [] Other: Relational/Emotional Strength [] Patient feels connected with others/family/visitors/staff [] Distress [] Loneliness/isolation [] Abandonment Spirituality of Patient [] Person of Dior [] Attends Islam of their Dior [] Believes in Prayer [] Reads Bible or Mu-Ism materials [] There are Spiritual issues to be addressed Access Coordinator Interventions [] Prayer [] Active listening [] Non-anxious presence [] Spiritual/emotional support [] Crisis/trauma care [] Spiritual counseling [] Bereavement support [] Provided bereavement packet [] Provided Bible/devotional materials [] Provided toy/stuffed animal, coloring book to patient or family member [] Provided Communion [] Anointing/[place] [] Salvation [] Completed spiritual assessment [] Other: Impact on Illness or Injury [] Angry [] Fearful [] Anxious [] Often cries [] Exhaustion [] Unable to work [] Unable to attend sabianist [] Unable to walk/stand [] Unable to read [] Unable to drive [] Unable to eat/drink [] Unable to sleep [] Unable to be with family [] Patient intubated [] Other: Summary patient did not want pray Time spent with patient 10 min
--- NOTE | 2021-07-10 10:49 | P.PN_ITS ---
Subjective Subjective: This morning patient is endorsing feeling better however noted overnight desaturation pattern and bradycardia She will need outpatient sleep study She has sleep apnea At rest doing well on room air however on ambulation requires 2 L We will do home O2 eval, plan to discharge her tomorrow Echo report is pending Continue Lasix 40 mg daily Vitals/I&O/Wt Last Vital Signs Temp 97.8 F 07/10/21 08:00 Pulse 65 07/10/21 09:11 Resp 16 07/10/21 09:11 BP 156/88 07/10/21 08:00 Pulse Ox 91 07/10/21 09:11 07/09/21 07/10/21 07/10/21 22:59 06:59 14:59 Intake Total 240 / 540 1500 / 2040 260 / 260 Output Total 1300 / 1300 900 / 2200 Balance -1060 / -760 600 / -160 260 / 260 Weight last 48 hrs Weight 175.268 kg Weight 175.268 kg Weight 158.757 kg Physical Exam Narrative: female Doing well at rest Nonfocal neuro exam S1, S2 No signs of audible stridor or wheezing Edema of leg slightly improved, pedal edema +1+ Abdomen distended with central obesity Nontender Pleasant and cooperative Data : 07/10/21 05:22 07/10/21 05:22 A&P Assessment and plan (1) Pneumonia: Status: Acute (2) Hypoxemia: Status: Acute (3) New onset of congestive heart failure: Status: Acute (4) Sleep apnea: Status: Acute Plan Groundglass opacities could be related to underlying CHF BNP less than 400, echo report is pending Continue Lasix 40 mg daily I do suspect underlying etiology is sleep apnea Overnight desaturation noted Patient is requiring 2 L of oxygen secondary to hypoventilation and vascular congestion Procalcitonin unremarkable, viral panel negative For now I am continuing ceftriaxone and azithromycin We will request home O2 eval She will be discharged home tomorrow versus later today if she is feeling better , Acute hypoxia related to hypoventilation, CT scan did not show active infiltrate, groundglass opacities likely CHF related, on exertion she is requiring 2 L of oxygen Attestations Medical Necessity Statement*: Continue medical management, possible discharge tomorrow Time Spent in Patient Care: 20mins Coding Level of Care Code 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
[2021-07-10 11:12] LABS: Glucose Point of Care 183 mg/dL (70-110)
[2021-07-10] MEDS: cefTRIAXone 1,000 MG in sodium chloride 0.9% (plus) 50 ML 100 MG IV (12:23)
[2021-07-10 15:47] LABS: SARS Covid-2 Antigen Negative (Negative)
[2021-07-10 17:42] LABS: Glucose Point of Care 247 mg/dL (70-110)
[2021-07-10 20:41] LABS: Glucose Point of Care 158 mg/dL (70-110)
[2021-07-10] MEDS: enoxaparin 40 mg/0.4 mL Syringe SUBCUT (20:58)
[2021-07-10] MEDS: ferrous sulfate EC 325 mg Tablet PO (21:00)
[2021-07-10] MEDS: insulin glargine 100 units/1 mL 90 UNIT SUBCUT (21:00)
[2021-07-10] MEDS: lisinopril 10 mg Tablet PO (21:01)
[2021-07-10] MEDS: hydroCHLOROthiazide 25 mg Tablet 12.5 MG PO (21:01)
[2021-07-11] VITALS (7 sets, daily range): BP systolic 112–127; BP diastolic 57–69; PULSE 54–65; RESP 16–19; TEMP 36.4–36.8; O2SAT 93–96
[2021-07-11] MEDS: acetaminophen 500 mg Tablet PO ×2 (02:15→08:14)
[2021-07-11 06:18] LABS: Glucose Point of Care 82 mg/dL (70-110)
[2021-07-11] MEDS: sennosides-docusate Tablet 1 TAB PO (08:14)
[2021-07-11] MEDS: azithromycin 250 mg Tablet 500 MG PO (08:14)
[2021-07-11] MEDS: FUROsemide 40 mg Tablet PO (08:14)
--- NOTE | 2021-07-11 09:20 | USCV_ITS ---
Anusha Camilla Age: 56 Gender: F : 1965 Exam Date: 07/11/2021 09:34 Ordering Phys: Wayne Gutierrez MD Technologist: Donaldo Mosley Exam Location: [facility] [place]_ Indication: hgih d dimer PROCEDURES: Venous duplex imaging was performed in bilateral lower extremities. The following venous structures were evaluated: common femoral vein, profunda vein, proximal portion of the greater saphenous vein, superficial femoral vein, and the popliteal vein. In addition, the posterior tibial and peroneal trunk were evaluated. Serial compression, augmentation maneuvers, and spectral Doppler flow evaluation were performed. FINDINGS: Normal 2-D Doppler and augmentation and compressibility throughout the lower extremity venous structures. Additional imaging through the proximal calf veins also reveals no thrombus. Limited evaluation of the greater saphenous vein is patent with no thrombus. CONCLUSIONS No DVT bilateral lower extremities. Dr. Lexi Kim DO (Electronically Signed) Final Date: 11 July 2021 11:18 S
--- NOTE | 2021-07-11 09:24 | P.DS_ITS ---
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 She was empirically treated with ceftriaxone and azithromycin, she had high D-dimer, CTA chest did not show PE, venous Doppler negative. Groundglass opacities were detected on CT chest, viral panel negative, Covid panel negative. Clinical signs of fluid overload were present. She was started on Lasix. Home O2 evaluation was done, she qualified for 3 L on exertion, 2 L at rest. Exact etiology of groundglass opacity has not been identified yet however this most likely is related to underlying vascular congestion, echo mely wed preserved ejection fraction, because of poor ultrasonic windows could not comment on diastolic component however she has increased right atrial pressure which made me concerned about her undiagnosed underlying sleep apnea (possible pulmonary hypertension). Overnight pulse oximetry study showed hypoxia, I have given her prescription to get sleep study done as soon as possible to get CPAP. Hopefully her oxygen requirement will improve in next few weeks. She will need a repeat chest x-ray within 6 weeks. Her hemoglobin A1c during this admission was 6.5 previously it was around 10. I requested her to watch her blood sugar in the morning to avoid hypoglycemic events. I have added Lasix and discontinued hydrochlorothiazide. Patient has been counseled to see pulmonary medicine, appointment can be made via PCP Physical Exam Narrative: Patient was comfortably in her bed Laying supine On 2 L nasal cannula Pedal edema slightly improved Distended abdomen visceral obesity Nonfocal neuro exam Nonlabored breathing Abdomen is soft Discharge Data Studies Completed and Pending Completed Studies During Hospitalization Category Date Time Status CTA chest [CT angio chest PE protcl [id number]] Urgent Cat Scan 07/09/21 11:16 Completed XR chest 1V portable [id number] Stat Exams 07/09/21 09:41 Completed CV. echo complete* [id number] Routine Ultrasound 07/09/21 17:31 Completed Pending at discharge Category Date Time Status US venous duplex lower extremity bilat [CV venous Ultrasound 07/11/21 09:20 [place] [id number]] Routine Radiology Impressions Chest X-Ray 07/09/21 09:41 IMPRESSION: 1. Stable cardiomegaly. 2. Shallow inspiration. 3. Mild pulmonary vascular congestion. Chest CTA 07/09/21 11:16 IMPRESSION: Some images limited due to body habitus 1. No evidence of pulmonary embolus. 2. Hazy groundglass infiltrates throughout both lungs worse in the RIGHT. Recommend correlation for viral pneumonia including Covid 19 pneumonia 3. No focal consolidation or pleural fluid. Laboratory Results WBC 11.8 10^3/uL (4.0-10.0) H 07/10/21 05:22 RBC 3.41 10^6/uL (4.1-5.3) L 07/10/21 05:22 Hgb 9.8 g/dL (11.5-15.3) L 07/10/21 05:22 Hct 33.0 % (37.0-47.0) L 07/10/21 05:22 MCV 96.8 fl (81-99) 07/10/21 05:22 MCH 28.7 pg (28.0-34.0) 07/10/21 05:22 MCHC 29.7 g/dL (30.0-36.0) L 07/10/21 05:22 RDW 14.9 % (12.1-15.1) 07/10/21 05:22 Plt Count 249 10^3/cmm (130-400) 07/10/21 05:22 MPV 9.2 fL (7.4-10.4) 07/10/21 05:22 Neut % (Auto) 88.4 % 07/10/21 05:22 Lymph % (Auto) 8.4 % 07/10/21 05:22 [place] % (Auto) 2.6 % 07/10/21 05:22 Eos % (Auto) 0.0 % 07/10/21 05:22 Baso % (Auto) 0.1 % 07/10/21 05:22 Neut # (Auto) 10.46 10^3/uL (1.8-7.7) H 07/10/21 05:22 Lymph # (Auto) 1.0 10^3/uL (0.8-4.8) 07/10/21 05:22 [place] # (Auto) 0.3 10^3/uL (0.2-0.9) 07/10/21 05:22 Eos # (Auto) 0.0 10^3/uL (0.0-0.8) 07/10/21 05:22 Baso # (Auto) 0.0 10^3/uL (0.0-0.1) 07/10/21 05:22 Nucleated RBC % (auto) 0 % 07/10/21 05:22 Nucleated RBCs # 0.0 /100WBC 07/10/21 05:22 D-Dimer 1.04 ug/mIFEU (0-0.59) H 07/09/21 09:50 Specimen Type Arterial 07/10/21 05:11 Sample Site Radial, right 07/10/21 05:11 ABG pH 7.40 (7.35-7.45) 07/10/21 05:11 ABG pCO2 52.7 mmHg (35-45) H 07/10/21 05:11 ABG pO2 90.2 mmHg (80.0-100.0) 07/10/21 05:11 ABG HCO3 32.4 mmol/L (22-26) H 07/10/21 05:11 ABG Base Excess 6.5 mmol/L (-2.0-2.0) H 07/10/21 05:11 Vicente Test Pos 07/10/21 05:11 Hematocrit 30.8 % (37-47) L 07/10/21 05:11 O2 Delivery Device Nc 07/10/21 05:11 O2 Liters/Min 2.0 % 07/10/21 05:11 Credit Risk Manager ID Hensa 07/10/21 05:11 Sodium 137 mmol/L (136-145) 07/10/21 05:22 Potassium 4.8 mmol/L (3.5-5.1) 07/10/21 05:22 Chloride 97 mmol/L (98-107) L 07/10/21 05:22 Carbon Dioxide 28 mmol/L (22-29) 07/10/21 05:22 Anion Gap 16.8 (5-19) 07/10/21 05:22 BUN 12 mg/dL (6-20) 07/10/21 05:22 Creatinine 0.5 mg/dL (0.5-0.9) 07/10/21 05:22 GFR Calculation 128.6 mL/min (90-130) 07/10/21 05:22 Glucose 265 mg/dL (65-115) H 07/10/21 05:22 POC Glucose 82 mg/dL (70-110) 07/11/21 06:06 Estimat Average Glucose 140 07/09/21 09:50 Hemoglobin A1c 6.5 % (4.0-6.0) H 07/09/21 09:50 Calculated Osmolality 293 mOsm/kg (285-295) 07/10/21 05:22 Calcium 9.8 mg/dL (8.5-10.5) 07/10/21 05:22 Magnesium 1.8 mg/dL (1.7-2.3) 07/10/21 05:22 Total Bilirubin 0.4 mg/dL (0.15-1.2) 07/09/21 09:50 AST 15 U/L (0-32) 07/09/21 09:50 ALT 19 U/L (0-33) 07/09/21 09:50 Alkaline Phosphatase 111 IU/L (35-105) H 07/09/21 09:50 Troponin T Baseline 9 ng/L (0-10) 07/09/21 09:50 Troponin T 120 Minute 11.41 ng/L (0-10) H 07/09/21 12:10 Delta Troponin T 2.41 ABS# (0-10) 07/09/21 12:10 Troponin T Hi Sens 6Hr 10.01 ng/L (0-10) H 07/09/21 15:43 Troponin T Hi Sens 6Hr Delta 1.01 ng/L (0-12) 07/09/21 15:43 C-Reactive Protein 84.2 mg/L (0.0-4.9) H 07/10/21 05:22 NT-Pro-B Natriuret Pep 264 pg/mL (0-125) H 07/09/21 15:43 Total Protein 6.3 g/dL (6.6-8.7) L 07/09/21 09:50 Albumin 4.2 g/dL (3.5-5.2) 07/09/21 09:50 Globulin 2.1 g/dL (1.3-4.6) 07/09/21 09:50 Procalcitonin 0.09 ng/mL (0-0.5) 07/09/21 15:43 Nasal Influ A H1 2009 PCR Not detected (NOT DETECT) 07/09/21 09:55 Coronavirus 229E (PCR) Not detected (NOT DETECT) 07/09/21 09:55 Influenza A (H1) PCR Not detected (NOT DETECT) 07/09/21 09:55 Influenza A (H3) PCR Not detected (NOT DETECT) 07/09/21 09:55 Influenza Type A Ag Cancelled 07/09/21 11:45 Influenza Type A (PCR) Not detected (NOT DETECT) 07/09/21 09:55 Influenza Type B Ag Cancelled 07/09/21 11:45 Influenza Type B (PCR) Not detected (NOT DETECT) 07/09/21 09:55 SARS-CoV-2 (PCR) Not detected (NOT DETECT) 07/09/21 09:55 SARS-CoV-2 Ag (Rapid) Negative (Negative) 07/10/21 15:09 Vitals Last Vital Signs Temp 98.3 F 07/11/21 07:15 Pulse 65 07/11/21 08:37 Resp 18 07/11/21 08:37 BP 127/69 07/11/21 07:15 Pulse Ox 94 07/11/21 08:37 Discharge Plan Discharge Patient Disposition: Home Condition: Stable Prescriptions: New Lasix 20 mg tablet 20 mg PO DAILY Qty: 30 3RF Continued fluoxetine 40 mg capsule 60 mg PO BEDTIME 0RF potassium chloride 10 mEq tablet extended release 10 meq PO BEDTIME 0RF acetaminophen 500 mg Tablet 1,000 mg PO Q6H PRN (Reason: Pain) 0RF iron 325 mg (65 mg iron) Tablet 325 mg PO BEDTIME 0RF lisinopril 10 mg tablet 10 mg PO BEDTIME 0RF rosuvastatin 20 mg tablet 20 mg PO BEDTIME 0RF Januvia 100 mg tablet 100 mg PO BEDTIME 0RF Lantus Solostar U-100 Insulin 100 unit/mL (3 mL) insulin pen See Rx Instructions .ROUTE .COMPLEX 0RF Rx Instructions: 45 unit subcutaneously on each side at bedtime (total 90units hs) Trulicity 1.5 mg/0.5 mL pen injector 1.5 mg SUBCUT Q7D 0RF Rx Instructions: on thursday Changed metformin 500 mg tablet extended release 24 hr 500 mg PO BID Qty: 0 0RF Discontinued ibuprofen 200 mg Tablet 400 mg PO Q6H PRN (Reason: Pain) 0RF hydrochlorothiazide 12.5 mg tablet 12.5 mg PO BEDTIME 0RF Discharge Orders: Discharge Order (Routine); Ordered 07/11/21 Ordered By: Wayne Gutiererz Other Ambulatory Orders: D Dimer (Routine) Timeframe: 3 Days Facility: [facility] - Location: Lab - Main Lab Ordered By: Wayne Gutierrez Sleep Study/Titration (Routine) Timeframe: 2 Days Facility: [facility] - Location: [facility] Ordered By: Wayne Gutierrez XR chest 2V* 81600 (Routine) Timeframe: 6 Weeks Facility: [facility] - Location: Rad[facility] Ordered By: Wayne Gutierrez DME: Oxygen (Order) Location: None Selected Ordered By: Wayne Gutierrez Referrals: Marlo Newsome MD [Physician] - 2 weeks Marlon Bowman MD [Primary Care Provider] - 07/18/21 2:20 pm Discharge Diet: Diabetic Discharge Activity: Increase activity as tolerated Patient Instructions: Furosemide (By mouth) (Lasix), Sleep Apnea (GEN), Pneumonia (DC), CHF Stoplight, Opioid Safety Discharge Attestations Time Spent in Discharge Care*: less than 30 min Quality Metrics Clinical Quality Measures [ No reported AMI, CVA or VTE this stay] Coding Level of Care Code Acute Chg FW DC note Diagnoses Pneumonia J18.9 Hypoxemia R09.02 New onset of congestive heart failure I50.9 Sleep apnea G47.30
== END 2021-07-11 12:16 | disposition home or self-care (01) ==
LOC: ER 16:03 → MEDSURG 16:46
PROVIDERS: Physician Assistant; Admitting Provider Internal Medicine; Emergency Provider Emergency Medicine; PCP Family Medicine; Visit Provider Internal Medicine
DX: J18.9 Pneumonia, unspecified organism (principal); Z99.81 Dependence on supplemental oxygen; I50.9 Heart failure, unspecified; R09.02 Hypoxemia; G47.30 Sleep apnea, unspecified; R79.89 Other specified abnormal findings of blood chemistry; E11.9 Type 2 diabetes mellitus without complications; Z79.4 Long term (current) use of insulin; I25.2 Old myocardial infarction; E66.9 Obesity, unspecified; Z68.44 Body mass index [BMI] 60.0-69.9, adult; E87.70 Fluid overload, unspecified; Z82.49 Family history of ischemic heart disease and other diseases of the circulatory system; Z83.3 Family history of diabetes mellitus
CPT/HCPCS: 36415; 36416; 36600; 71045; 71275; 80048; 80053; 82803; 82962; 83036; 83735; 83880; 84145; 84484; 85025; 85378; 86140; 87426; 87631; 87635; 93005; 93306; 93970; 94762; 96365; 96367; 96372; 96375; 99285; G0378; J0456; J0696; J1100; J1650; J1815 ×2; J1885; J1940; J7050; Q0144; Q9967

== ENCOUNTER → 2021-08-23 10:25 | Outpatient (BNVA) | payer OTHER, SELFPAY | PROVIDERS: PCP Family Medicine; Visit Provider Internal Medicine Critical Care Medicine | DX: R09.02 Hypoxemia (principal); R06.02 Shortness of breath; J45.909 Unspecified asthma, uncomplicated; G47.10 Hypersomnia, unspecified | CPT/HCPCS: 71046; 82785; 85025; 86003 ==

== ENCOUNTER 2021-09-16 20:00 | Outpatient (CLI) | payer OTHER, SELFPAY | END 2021-09-16 20:01 | disposition home or self-care (01) | LOC: SLEEP 09-17 08:08 | PROVIDERS: PCP Family Medicine; Visit Provider Family Medicine | DX: G47.10 Hypersomnia, unspecified (principal); G47.33 Obstructive sleep apnea (adult) (pediatric); G47.36 Sleep related hypoventilation in conditions classified elsewhere | CPT/HCPCS: 95810 ==

== ENCOUNTER → 2021-10-10 12:41 | Outpatient (BNVA) | payer OTHER, SELFPAY | PROVIDERS: PCP Family Medicine; Visit Provider Family Medicine | DX: E11.9 Type 2 diabetes mellitus without complications (principal); Z51.81 Encounter for therapeutic drug level monitoring; I10 Essential (primary) hypertension | CPT/HCPCS: 80053; 83036; 85025 ==

== ENCOUNTER 2021-11-06 20:00 | Outpatient (CLI) | payer OTHER, SELFPAY | END 2021-11-07 08:22 | disposition home or self-care (01) | LOC: SLEEP 11-12 09:56 | PROVIDERS: PCP Family Medicine; Visit Provider Internal Medicine Critical Care Medicine | DX: G47.33 Obstructive sleep apnea (adult) (pediatric) (principal) | CPT/HCPCS: 95811 ==

== ENCOUNTER 2021-11-07 10:15 | Outpatient (CLI) | payer OTHER, SELFPAY ==
--- NOTE | 2021-11-07 | ECG_ITS ---
[facility] Test Date: 2021-11-07 Pat Name: Camilla Tavares Department: Room: Gender: Female Sizer Machine: : 1965 Requested By: XunLight Rex Order Number: [id number] Aria MD: Israel Lennon M.D. Interpretive Statements NAME OF STUDY: LEXISCAN SESTAMIBI STRESS TEST INDICATION: [Shortness of Breath, ] Procedure: At the baseline, the blood pressure was 128/82mmHg with a heart rate of 60 bpm. The electrocardiogram showed normal sinus rhythm, normal axis with normal ST and T's. The Lexiscan was infused over a period of 20 seconds. A total of 0.4 mg of Lexiscan was infused. The stress phase was continued for a total of 5 minutes. Heart rate was at the end of stress phase was 75 bpm and a blood pressure of 155/78 mmHg. The EKG at the peak infusion revealed normal sinus rhythm with no significant ST-T wave changes. Sestamibi was injected 20 seconds after the Lexiscan infusion. Blood pressure at the end of recovery phase was 146/83 mmHg with a heart rate of 71 bpm. Conclusion: 1. Normal EKG response to Lexiscan infusion 2. No Lexiscan induced chest pain or cardiac arrhythmia. 3. Normal blood pressure and heart rate response. 4. Sestamibi/sestamibi perfusion scan pending; see separate report. Electronically Signed On 11-20-2021 17:11:09 CDT by Israel Lennon M.D. [id number]
[2021-11-07 10:35] VITALS: BMI 57.2
--- NOTE | 2021-11-07 10:41 | NMCV_ITS ---
[facility] perf SPECT r/s* [id number] Camilla Tavares Age: 56 Gender: F : 1965 Exam Date: 11/07/2021 11:25 Ordering Phys: Yared Goodman MD Technologist: LORETTA Park Exam Location: [facility] Indications: SOB STRESS TEST Please see separate stress test report in [facility] for full findings IMAGE PROTOCOL Rest/Stress 1 Lexiscan Day Radiopharmaceutical Dose (mCi) Administration Site Administered by Rest: Tc-99m 11.0 IV L[place]ET[place] Park Sestamibi Stress:Tc-99m 33.0 IV L[place]ET[place] Park Sestamibi Rest: 07-Nov-2021 60 Discovery 630 Stress: 07-Nov-2021 45 Discovery 630 0.4mg Lexiscan. Images obtained in supine and prone position. SPECT RESULTS Technical Quality: Good Raw Data Analysis: Breast attenuation, Soft tissue attenuation, patient is obese 350 lb Image Corrections: No attenuation or motion correction applied Summed Stress Score: 0 Summed Rest Score: 1 Summed Difference Score: 0 PERFUSION FINDINGS There is a small in size mostly fixed perfusion defect noted in inferolateral wall. 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 Small area of farhad-infarct ischemia seen. FUNCTIONAL RESULTS (calculated via Gated SPECT) Stress Image LV EF (%): 75 Stress EDV (mL):176 TID: 1.08 Stress ESV (mL):44 FUNCTIONAL FINDINGS: There is normal left ventricular systolic function. IMPRESSIONS 1. Small in size mostly fixed perfusion defect noted in inferolateral wall. This is consistent with small sized prior infarct in the left circumflex artery with small area of farhad-infarct ischemia. 2. LV systolic function is normal Israel Lennon MD (Electronically Signed) Final Date: 12 November 2021 17:29 S
[2021-11-07 12:24] VITALS: BP 146/83; PULSE 69
[2021-11-07] MEDS: regadenoson 0.4 Mg/5 ml Syringe IVP (12:26)
== END 2021-11-07 10:16 | disposition home or self-care (01) ==
LOC: CDL 10:15
PROVIDERS: PCP Family Medicine; Visit Provider Internal Medicine Critical Care Medicine
DX: R06.02 Shortness of breath (principal); R09.02 Hypoxemia
CPT/HCPCS: 78452; 93017; A9500; J2785

== ENCOUNTER 2021-11-12 08:20 | Outpatient (CLI) | payer OTHER, SELFPAY ==
--- NOTE | 2021-11-12 10:05 | PFTS_ITS ---
Date of Study:11/12/21 Date of Dictation:11/18/21 MECHANICS: Postbronchodilator forced vital capacity (FVC) is reduced. Postbronchodilator forced expiratory volume in one second (FEV1) is reduced. FEV1/FVC is normal. There is no significant response to bronchodilators. FLOW VOLUME LOOP: Sloping of end expiratory curve suggestive of small airway obstruction LUNG VOLUMES: Total lung capacity (TLC) is reduced. Residual volume (RV) is normal. DIFFUSING CAPACITY FOR CARBON MONOXIDE: Normal . INTERPRETATION: The Postbronchodilator spirometry show restriction. There is no significant response to bronchodilators. Lung volumes are mildly reduced. Gas transfer is normal. Flow volume loop suggestive of small airway obstruction. Overall constellation of findings consistent with moderate restriction with mild airway response. Clinical correlation recommended. [facility]
== END 2021-11-12 08:21 | disposition home or self-care (01) ==
PROVIDERS: PCP Family Medicine; Visit Provider Internal Medicine Critical Care Medicine
DX: R09.02 Hypoxemia (principal)
CPT/HCPCS: 94060; 94618; 94726; 94729; J7614

== ENCOUNTER 2021-11-20 09:22 | Outpatient (CLI) | payer OTHER, SELFPAY ==
--- NOTE | 2021-11-20 09:30 | USCV_ITS ---
Camilla Tavares Age: 56 Gender: F : 1965 Exam Date: 11/20/2021 09:36 Ordering Phys: Abraham Queen MD Technologist: DEBBIE Exam Location: [facility] [place] Indication: Pain in Rt leg HISTORY: Pain an Swelling Rt. Leg PROCEDURES: Venous duplex imaging was performed in only the right lower extremity. The following venous structures were evaluated: common femoral vein, profunda vein, proximal portion of the greater saphenous vein, superficial femoral vein, and the popliteal vein. In addition, the posterior tibial and peroneal trunk were evaluated. Serial compression, augmentation maneuvers, and spectral Doppler flow evaluation were performed. Rt. SSV examined. Rt. medial lower leg...area of pain examined. FINDINGS: Normal 2-D Doppler and augmentation and compressibility throughout the lower extremity venous structures. Additional imaging through the proximal calf veins also reveals no thrombus. Limited evaluation of the greater saphenous vein is patent with no thrombus.. ? Bakers cyst Rt. medial pop area and thin band of flluid medial lower leg between muscle layers. CONCLUSIONS No evidence of right lower extremity DVT. Popliteal cyst measuring 3.2 x 1.4 x 1.9cm Small amount of subcutaneous edema right lower leg medially Jim Qureshi MD (Electronically Signed) Final Date: 20 November 2021 10:31 S
== END 2021-11-20 09:23 | disposition home or self-care (01) ==
PROVIDERS: PCP Family Medicine; Visit Provider Family Medicine
DX: M79.604 Pain in right leg (principal); M71.21 Synovial cyst of popliteal space [Baker], right knee; R60.0 Localized edema
CPT/HCPCS: 93971

== ENCOUNTER 2022-01-24 14:40 | Outpatient (CLI) | payer OTHER, SELFPAY ==
--- NOTE | 2022-01-24 15:14 | MM_ITS ---
WS: [id number] BILATERAL SCREENING DIGITAL TOMOSYNTHESIS MAMMOGRAM WITH CAD HISTORY: SCREENING COMPARISON: 04/11/2020 and 03/12/2018 Bilateral CC and MLO views with tomosynthesis and synthetic mammography submitted. Computer aided det ection analyzed. Breast composition: There are scattered areas of fibroglandular density. No suspicious masses, microc alcifications or architectural distortion. Benign cluster of calcifications with a fibroadenoma media l inferior LEFT breast. MM/[place] [id number] IMPRESSION: BI-RADS: 2-Benign FOLLOW UP: 1 Year Follow-up
== END 2022-01-24 14:41 | disposition home or self-care (01) ==
LOC: RAD 14:42
PROVIDERS: PCP Family Medicine; Visit Provider Family Medicine
DX: Z12.31 Encounter for screening mammogram for malignant neoplasm of breast (principal)
CPT/HCPCS: 77063; 77067

== ENCOUNTER 2022-03-03 06:54 | Emergency (ER) | payer OTHER, SELFPAY ==
[2022-03-03] VITALS (8 sets, daily range): BP systolic 142–151; BP diastolic 80–88; PULSE 71–81; RESP 16–23; TEMP 36.5; O2SAT 87–92; BMI 59.7
--- NOTE | 2022-03-03 07:08 | XR_ITS ---
WS: [id number] XR chest 1V portable [id number] REASON FOR EXAM: dyspnea/cough FINDINGS: Moderate tortuosity and ectasia of the thoracic aorta. The heart is at the upper limits of normal in size. Calcified granulomatous disease in both hemithoraces. Compared to previous examination of 08/23/2021. There is obscuration of the left cardiophrenic and lef t and right costophrenic angles. Interval abnormalities as above which could represent subacute/chron ic pleural pericardial reaction, atelectasis in the left lower lung. Possibly the findings are due to technique and poor inspiratory effort. No other interval change compared to the previous examination. XR/XR chest 1V portable [id number] IMPRESSION: Presumed pleural/pleural pericardial abnormalities, unknown chronicity. Follow-up chest x-ray as clinically warranted.
--- NOTE | 2022-03-03 07:22 | ECG_ITS ---
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 Measurements Intervals [place] Rate: 73 P: 51 NM: 171 QRS: -19 QRSD: 109 T: 47 QT: 405 QTc: 448 Interpretive Statements SINUS RHYTHM Compared to ECG 07/09/2021 17:38:47 Incomplete right bundle-branch block no longer present Electronically Signed On 03-03-2022 14:22:26 [employer] SPECIALIST by Remigio Sheldon M.D. [id number]
[2022-03-03 08:25] LABS: Basophils % 0.5 %; Eosinophils # 0.1 10^3/uL (0.0-0.8); Eosinophils % 2.3 %; Hematocrit 34.6 % (37.0-47.0); Hemoglobin 10.5 g/dL (11.5-15.3); Lymphocytes # 0.8 10^3/uL (0.8-4.8); Mean Corpuscular HGB Conc 30.3 g/dL (30.0-36.0); Mean Corpuscular Hemoglobin 28.8 pg (28.0-34.0); Mean Corpuscular Volume 95.1 fl (81-99); Mean Platelet Volume 9.7 fL (7.4-10.4); Monocytes # 0.3 10^3/uL (0.2-0.9); Monocytes % 5.9 %; Neutrophils # 3.12 10^3/uL (1.8-7.7); Neutrophils % 73.1 %; Nucleated Red Blood Cells % 0 %; Platelet Count 229 10^3/cmm (130-400); Red Blood Count 3.64 10^6/uL (4.1-5.3); Red Cell Distribution Width 15.3 % (12.1-15.1); White Blood Count 4.3 10^3/uL (4.0-10.0)
[2022-03-03 08:46] LABS: Anion Gap 14.5 (5-19); Blood Urea Nitrogen 10 mg/dL (6-20); Calcium 9.2 mg/dL (8.5-10.5); Carbon Dioxide 26 mmol/L (22-29); Chloride 97 mmol/L (98-107); Glomerular Filtration Rate 86.9 mL/min (90-130); Glucose 413 mg/dL (65-115); Osmolality Calculated 293 mOsm/kg (285-295); Potassium 4.5 mmol/L (3.5-5.1); Sodium 133 mmol/L (136-145)
--- NOTE | 2022-03-03 08:59 | ED_ITS ---
Documented by User: LANIE Chavarria 03/03/22 16:03 HPI - URI/Sore Throat General: Chief Complaint: Shortness of Breath/Dyspnea Stated Complaint: SOB Time Seen by Provider: 03/03/22 07:15 History of Present Illness: Patient is a 57-year-old female who comes to the ED with upper respiratory symptoms. She has a history of asthma and type 2 diabetes and has insulin at home, but states she has not been taking her insulin as prescribed for over the past month. She has O2/oxygen concentrator to use at home as needed for any shortness of breath. Patient started having upper respiratory symptoms of nasal congestion and drainage and cough approximately 3 days ago. She reports subjective fevers. She feels like the drainage and cough is getting lower and into her lungs so she wanted to come get checked out before it gets worse. Endorses some shortness of breath. Denies any chest pain. Associated symptoms: Reports fever(s) and nasal congestion; Deny abdominal pain, chills, chest pain, diarrhea, headache(s), nausea or vomiting Review of Systems Const: Reports: fever(s); Denies: chills or fatigue Eyes: Denies: change in vision or eye discomfort ENMT: Reports: nasal discharge and nasal congestion; Denies: throat pain or odynophagia Card: Denies: chest pain, palpitations, edema, swelling of feet/ankles, dyspnea on exertion or orthopnea Resp: Reports: dyspnea and non-productive cough; Denies: productive cough GI: Denies: abdominal pain, nausea, vomiting, diarrhea, constipation or hematochezia : Denies: flank pain, dysuria or hematuria Musc: Denies: neck pain, back pain or extremity swelling Skin/Breast: Denies: rash or new lesions Neuro: Denies: headache(s), numbness in extremities or weakness in extremities PFSH ED PFSH: Medical History Diabetes Family history of [place] (myocardial infarction) Family history of thyroid disease Surgical History H/O: hysterectomy Cancer No pertinent past surgical history Family History Sister Cancer Nasopharyngeal cancer, junctional tumor Other Diabetes Family history of premature coronary artery disease No pertinent family history Social History Smoking and tobacco status: never smoked Alcohol intake: never Household members: family Housing: House Physical Exam Const: COMMON NORMALS: patient oriented x3 and alert GENERAL APPEARANCE: cooperative NUTRITIONAL APPEARANCE: obese HENMT: COMMON NORMALS: normocephalic HEAD & SCALP: normocephalic MOUTH: Normal oral and palatal mucosa present THROAT: posterior oropharynx normal and uvula midline Eye: COMMON NORMALS: Equal, round and reactive pupils present and conjunctivae normal CONJUNCTIVA: Yes conjunctivae normal PUPIL: Yes Equal, round and reactive pupils present Neck/C-Spine: COMMON NORMALS: supple GENERAL: Yes normal visual inspection Resp: COMMON NORMALS: normal respiratory effort, No retractions and No use of accessory muscles AUSCULTATION: wheezes expiratory wheezes and diminished lung sounds bilateral in the lower lung vincent Cardio: COMMON NORMALS: regular rate, regular rhythm, S1 normal heart sound present, S2 normal heart sound present, No gallops present (Cardio), No clicks present (Cardio), No murmurs present (Cardio) and Peripheral pulses 2+ throughout RATE: regular rate RHYTHM: regular rhythm HEART SOUNDS: S1 normal heart sound present and S2 normal heart sound present PERIPHERAL PULSES: Peripheral pulses 2+ throughout GI: COMMON NORMALS: Normal to inspection, nondistended, normoactive bowel sounds present, Soft to palpation, non-tender and no masses PALPATION: Yes Soft to palpation : COMMON NORMALS: Yes no CVA tenderness BLADDER/KIDNEY EXAM: Yes no CVA tenderness Back/Pelvis: COMMON NORMALS: no CVA tenderness Extremity: COMMON NORMALS: normal to inspection Neuro: COMMON NORMALS: patient oriented x3 SENSORIUM/ORIENTATION: Yes alert GAIT: Yes Normal gait present Skin: GENERAL SKIN EXAM: dry skin Course Vital Signs: Vital signs: Vital Signs Temperature 97.7 F 03/03/22 07:16 Pulse Rate 71 03/03/22 10:30 Respiratory Rate 23 H 03/03/22 10:30 Blood Pressure 147/88 03/03/22 09:30 Pulse Oximetry 87 L 03/03/22 10:30 Oxygen Delivery Me thod 03/03/22 09:25 MDM - URI/Sore Throat Medical Decision Making Patient is a 57-year-old female who comes to the ED with upper respiratory symptoms. She has a history of asthma and type 2 diabetes and has insulin at home, but states she has not been taking her insulin as prescribed for over the past month. She has O2/oxygen concentrator to use at home as needed for any shortness of breath. Patient's O2 sat is around 92% on room air. The rest of her vitals are stable. Patient has some lateral expiratory wheezing and diminished lung sounds at the bases. Blood sugar was 413 and the rest of CBC and CMP were unremarkable. Chest x-ray shows no pneumonia. She does have some fluid around the costophrenic angles bilaterally. Patient was given a dose of insulin, Decadron and doxycycline. She was also given DuoNeb breathing treatment here in the ED. She was stable for discharge home and diagnosed with bronchitis and hyperglycemia. She was told to check her blood sugars daily and to start using her insulin as prescribed. She was also told to start wearing her home oxygen until she is reevaluated by her PCP within the next week. She sent home with a prescription for doxycycline. Strict return to ED precautions given. Patient understood and agree with plan Lab Data I reviewed the patient's lab results. 03/03/22 08:00 03/03/22 08:00 Radiology Impressions Chest X-Ray 03/03/22 07:08 IMPRESSION: Presumed pleural/pleural pericardial abnormalities, unknown chronicity. Follow-up chest x-ray as clinically warranted. Laboratory Results WBC 4.3 10^3/uL (4.0-10.0) 03/03/22 08:00 RBC 3.64 10^6/uL (4.1-5.3) L 03/03/22 08:00 Hgb 10.5 g/dL (11.5-15.3) L 03/03/22 08:00 Hct 34.6 % (37.0-47.0) L 03/03/22 08:00 MCV 95.1 fl (81-99) 03/03/22 08:00 MCH 28.8 pg (28.0-34.0) 03/03/22 08:00 MCHC 30.3 g/dL (30.0-36.0) 03/03/22 08:00 RDW 15.3 % (12.1-15.1) H 03/03/22 08:00 Plt Count 229 10^3/cmm (130-400) 03/03/22 08:00 MPV 9.7 fL (7.4-10.4) 03/03/22 08:00 Neut % (Auto) 73.1 % 03/03/22 08:00 Lymph % (Auto) 18.0 % 03/03/22 08:00 [place] % (Auto) 5.9 % 03/03/22 08:00 Eos % (Auto) 2.3 % 03/03/22 08:00 Baso % (Auto) 0.5 % 03/03/22 08:00 Neut # (Auto) 3.12 10^3/uL (1.8-7.7) 03/03/22 08:00 Lymph # (Auto) 0.8 10^3/uL (0.8-4.8) 03/03/22 08:00 [place] # (Auto) 0.3 10^3/uL (0.2-0.9) 03/03/22 08:00 Eos # (Auto) 0.1 10^3/uL (0.0-0.8) 03/03/22 08:00 Baso # (Auto) 0.0 10^3/uL (0.0-0.1) 03/03/22 08:00 Nucleated RBC % (auto) 0 % 03/03/22 08:00 Nucleated RBCs # 0.0 /100WBC 03/03/22 08:00 Sodium 133 mmol/L (136-145) L 03/03/22 08:00 Potassium 4.5 mmol/L (3.5-5.1) 03/03/22 08:00 Chloride 97 mmol/L (98-107) L 03/03/22 08:00 Carbon Dioxide 26 mmol/L (22-29) 03/03/22 08:00 Anion Gap 14.5 (5-19) 03/03/22 08:00 BUN 10 mg/dL (6-20) 03/03/22 08:00 Creatinine 0.7 mg/dL (0.5-0.9) 03/03/22 08:00 GFR Calculation 86.9 mL/min (90-130) L 03/03/22 08:00 Glucose 413 mg/dL (65-115) H 03/03/22 08:00 POC Glucose 322 mg/dL (70-110) H 03/03/22 10:34 Calculated Osmolality 293 mOsm/kg (285-295) 03/03/22 08:00 Calcium 9.2 mg/dL (8.5-10.5) 03/03/22 08:00 Discharge Plan Discharge Patient Disposition: Home Clinical Impression: Bronchitis Hyperglycemia due to type 2 diabetes mellitus Qualifiers: 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: unspecified 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 insulin use status Qualified Code(s): E11.65 - Type 2 diabetes mellitus with hyperglycemia Condition: Stable Prescriptions: New doxycycline hyclate 100 mg capsule 100 mg PO BID 10 Days Qty: 20 0RF No Action budesonide-formoterol [Symbicort] 80-4.5 mcg/actuation HFA aerosol inhaler 2 puff inhalation Q12H 30 Days Qty: 10.2 3RF albuterol sulfate 90 mcg/actuation HFA aerosol inhaler 2 puff inhalation Q6H PRN (Reason: shortness of breath or wheezing) Qty: 8.5 3RF metformin 500 mg tablet extended release 24 hr 500 mg PO BID Qty: 60 6RF Spiriva Respimat 1.25 mcg/actuation mist 2 puff inhalation DAILY 30 Days Qty: 4 1RF Rx Instructions: For asthma potassium chloride 10 mEq tablet extended release 10 meq PO BEDTIME acetaminophen 500 mg Tablet 1,000 mg PO Q6H PRN (Reason: Pain) ferrous sulfate [iron] 325 mg (65 mg iron) Tablet 325 mg PO BEDTIME lisinopril 10 mg tablet 10 mg PO BEDTIME rosuvastatin 20 mg tablet 20 mg PO BEDTIME Januvia 100 mg tablet 100 mg PO BEDTIME insulin glargine [Lantus Solostar U-100 Insulin] 100 unit/mL (3 mL) insulin pen See Rx Instructions .ROUTE .COMPLEX Rx Instructions: 45 unit subcutaneously on each side at bedtime (total 90units hs) Trulicity 1.5 mg/0.5 mL pen injector 1.5 mg SUBCUT Q7D Rx Instructions: on thursday furosemide [Lasix] 20 mg tablet 20 mg PO DAILY Qty: 30 3RF fluoxetine 40 mg capsule 40 mg PO DAILY Rx Instructions: TAKE WITH 20 MG TAB TO EQUAL 60MG fluoxetine 20 mg capsule 20 mg PO DAILY Rx Instructions: TAKE WITH 40 MG TO EQUAL 60 MG ibuprofen 200 mg Tablet 400 mg PO Q6H PRN (Reason: Pain) Discharge Orders: Discharge ED (Routine); Ordered 03/03/22 Ordered By: Marlon Orozco Referrals: Marlon Bowman MD [Primary Care Provider] - Discharge Diet: Regular Discharge Activity: Increase activity as tolerated Patient Instructions: Bronchitis (Acute) - Adult, Diabetic Hyperglycemia (ED) Activity Restrictions/Additional Instructions: Follow-up with medical provider as directed in the next 5 to 7 days for reevaluation. Wear your oxygen at home for the next week until your reevaluated by your PCP. Take medications as prescribed. Make sure to check your blood sugars daily and take your insulin as prescribed. Return to the ER or your medical provider if condition worsens. Please read and understand discharge instructions. Thank you for choosing [facility] for your healthcare needs today. Please realize this is an emergency room and that we are providing you with a medical screening exam and this may not be complete and all inclusive of all the testing and or work up that you may need to determine your ailment or severity of your illness. It is very important that you follow up as instructed or that you return to the Emergency Department should you have concerns or if your condition changes or worsens in any way. Coding Level of Care Code ED Gas Pump Attendant for Chg Fwd Exam Comprehensive Documented by User: Ed Davis DO 03/06/22 07:02 HPI - URI/Sore Throat General: Chief Complaint: Shortness of Breath/Dyspnea Stated Complaint: SOB Time Seen by Provider: 03/03/22 07:15 [facility] ED PFSH: Medical History Diabetes Family history of [place] (myocardial infarction) Family history of thyroid disease Surgical History H/O: hysterectomy Cancer No pertinent past surgical history Family History Sister Cancer Nasopharyngeal cancer, junctional tumor Other Diabetes Family history of premature coronary artery disease No pertinent family history Social History Smoking and tobacco status: never smoked Alcohol intake: never Household members: family Housing: House Course Vital Signs: Vital signs: Vital Signs Temperature 97.7 F 03/03/22 07:16 Pulse Rate 71 03/03/22 10:30 Respiratory Rate 23 H 03/03/22 10:30 Blood Pressure 147/88 03/03/22 09:30 Pulse Oximetry 87 L 03/03/22 10:30 Oxygen Delivery Me thod 03/03/22 09:25 MDM - URI/Sore Throat Medical Decision Making Patient is a 57-year-old female who comes to the ED with upper respiratory symptoms. She has a history of asthma and type 2 diabetes and has insulin at home, but states she has not been taking her insulin as prescribed for over the past month. She has O2/oxygen concentrator to use at home as needed for any shortness of breath. Patient's O2 sat is around 92% on room air. The rest of her vitals are stable. Patient has some lateral expiratory wheezing and diminished lung sounds at the bases. Blood sugar was 413 and the rest of CBC and CMP were unremarkable. Chest x-ray shows no pneumonia. She does have some fluid around the costophrenic angles bilaterally. Patient was given a dose of insulin, Decadron and doxycycline. She was also given DuoNeb breathing treatment here in the ED. She was stable for discharge home and diagnosed with bronchitis and hyperglycemia. She was told to check her blood sugars daily and to start using her insulin as prescribed. She was also told to start wearing her home oxygen until she is reevaluated by her PCP within the next week. She sent home with a prescription for doxycycline. Strict return to ED precautions given. Patient understood and agree with plan. Chart reviewed and patient discussed with midlevel. Agree with assessment and plan. Medical Records I reviewed the patient's medical records. Lab Data 03/03/22 08:00 03/03/22 08:00 Radiology Impressions Chest X-Ray 03/03/22 07:08 IMPRESSION: Presumed pleural/pleural pericardial abnormalities, unknown chronicity. Follow-up chest x-ray as clinically warranted. Laboratory Results WBC 4.3 10^3/uL (4.0-10.0) 03/03/22 08:00 RBC 3.64 10^6/uL (4.1-5.3) L 03/03/22 08:00 Hgb 10.5 g/dL (11.5-15.3) L 03/03/22 08:00 Hct 34.6 % (37.0-47.0) L 03/03/22 08:00 MCV 95.1 fl (81-99) 03/03/22 08:00 MCH 28.8 pg (28.0-34.0) 03/03/22 08:00 MCHC 30.3 g/dL (30.0-36.0) 03/03/22 08:00 RDW 15.3 % (12.1-15.1) H 03/03/22 08:00 Plt Count 229 10^3/cmm (130-400) 03/03/22 08:00 MPV 9.7 fL (7.4-10.4) 03/03/22 08:00 Neut % (Auto) 73.1 % 03/03/22 08:00 Lymph % (Auto) 18.0 % 03/03/22 08:00 [place] % (Auto) 5.9 % 03/03/22 08:00 Eos % (Auto) 2.3 % 03/03/22 08:00 Baso % (Auto) 0.5 % 03/03/22 08:00 Neut # (Auto) 3.12 10^3/uL (1.8-7.7) 03/03/22 08:00 Lymph # (Auto) 0.8 10^3/uL (0.8-4.8) 03/03/22 08:00 [place] # (Auto) 0.3 10^3/uL (0.2-0.9) 03/03/22 08:00 Eos # (Auto) 0.1 10^3/uL (0.0-0.8) 03/03/22 08:00 Baso # (Auto) 0.0 10^3/uL (0.0-0.1) 03/03/22 08:00 Nucleated RBC % (auto) 0 % 03/03/22 08:00 Nucleated RBCs # 0.0 /100WBC 03/03/22 08:00 Sodium 133 mmol/L (136-145) L 03/03/22 08:00 Potassium 4.5 mmol/L (3.5-5.1) 03/03/22 08:00 Chloride 97 mmol/L (98-107) L 03/03/22 08:00 Carbon Dioxide 26 mmol/L (22-29) 03/03/22 08:00 Anion Gap 14.5 (5-19) 03/03/22 08:00 BUN 10 mg/dL (6-20) 03/03/22 08:00 Creatinine 0.7 mg/dL (0.5-0.9) 03/03/22 08:00 GFR Calculation 86.9 mL/min (90-130) L 03/03/22 08:00 Glucose 413 mg/dL (65-115) H 03/03/22 08:00 POC Glucose 322 mg/dL (70-110) H 03/03/22 10:34 Calculated Osmolality 293 mOsm/kg (285-295) 03/03/22 08:00 Calcium 9.2 mg/dL (8.5-10.5) 03/03/22 08:00 Discharge Plan Discharge Patient Disposition: Home Clinical Impression: Bronchitis Hyperglycemia due to type 2 diabetes mellitus Qualifiers: Diabetes mellitus penitentiary insulin use: unspecified 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 insulin 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 Qualified Code(s): E11.65 - Type 2 diabetes mellitus with hyperglycemia Condition: Stable Prescriptions: New doxycycline hyclate 100 mg capsule 100 mg PO BID 10 Days Qty: 20 0RF No Action budesonide-formoterol [Symbicort] 80-4.5 mcg/actuation HFA aerosol inhaler 2 puff inhalation Q12H 30 Days Qty: 10.2 3RF albuterol sulfate 90 mcg/actuation HFA aerosol inhaler 2 puff inhalation Q6H PRN (Reason: shortness of breath or wheezing) Qty: 8.5 3RF metformin 500 mg tablet extended release 24 hr 500 mg PO BID Qty: 60 6RF Spiriva Respimat 1.25 mcg/actuation mist 2 puff inhalation DAILY 30 Days Qty: 4 1RF Rx Instructions: For asthma potassium chloride 10 mEq tablet extended release 10 meq PO BEDTIME acetaminophen 500 mg Tablet 1,000 mg PO Q6H PRN (Reason: Pain) ferrous sulfate [iron] 325 mg (65 mg iron) Tablet 325 mg PO BEDTIME lisinopril 10 mg tablet 10 mg PO BEDTIME rosuvastatin 20 mg tablet 20 mg PO BEDTIME Januvia 100 mg tablet 100 mg PO BEDTIME insulin glargine [Lantus Solostar U-100 Insulin] 100 unit/mL (3 mL) insulin pen See Rx Instructions .ROUTE .COMPLEX Rx Instructions: 45 unit subcutaneously on each side at bedtime (total 90units hs) Trulicity 1.5 mg/0.5 mL pen injector 1.5 mg SUBCUT Q7D Rx Instructions: on thursday furosemide [Lasix] 20 mg tablet 20 mg PO DAILY Qty: 30 3RF fluoxetine 40 mg capsule 40 mg PO DAILY Rx Instructions: TAKE WITH 20 MG TAB TO EQUAL 60MG fluoxetine 20 mg capsule 20 mg PO DAILY Rx Instructions: TAKE WITH 40 MG TO EQUAL 60 MG ibuprofen 200 mg Tablet 400 mg PO Q6H PRN (Reason: Pain) Discharge Orders: Discharge ED (Routine); Ordered 03/03/22 Ordered By: Marlon Orozco Referrals: Marlon Bowman MD [Primary Care Provider] - Discharge Diet: Regular Discharge Activity: Increase activity as tolerated Patient Instructions: Bronchitis (Acute) - Adult, Diabetic Hyperglycemia (ED) Activity Restrictions/Additional Instructions: Follow-up with medical provider as directed in the next 5 to 7 days for reevaluation. Wear your oxygen at home for the next week until your reevaluated by your PCP. Take medications as prescribed. Make sure to check your blood sugars daily and take your insulin as prescribed. Return to the ER or your medical provider if condition worsens. Please read and understand discharge instructions. Thank you for choosing [facility] for your healthcare needs today. Please realize this is an emergency room and that we are providing you with a medical screening exam and this may not be complete and all inclusive of all the testing and or work up that you may need to determine your ailment or severity of your illness. It is very important that you follow up as instructed or that you return to the Emergency Department should you have concerns or if your condition changes or worsens in any way. Coding Level of Care Code ED Gas Pump Attendant for Nikolai Lentz Exam Comprehensive
[2022-03-03] MEDS: insulin regular-human 100 units/1 mL 10 UNIT IVP (09:16)
[2022-03-03] MEDS: dexamethasone 4 mg/mL INJ 8 MG IVP (09:16)
[2022-03-03] MEDS: ipratropium-albuterol 3 mL Neb 6 ML INHALATION (09:27)
[2022-03-03] MEDS: doxycycline 100 mg Tablet PO (10:28)
[2022-03-03 10:39] LABS: Glucose Point of Care 322 mg/dL (70-110)
== END 2022-03-03 11:15 | disposition home or self-care (01) ==
PROVIDERS: Family Medicine; Emergency Provider Physician Assistant; PCP Family Medicine
DX: J40 Bronchitis, not specified as acute or chronic (principal)
CPT/HCPCS: 36416; 71045; 80048; 82962; 85025; 93005; 94640; 96374; 96375; 99285; J1100; J1815

== ENCOUNTER 2022-06-04 12:55 | Outpatient (CLI) | payer OTHER, SELFPAY ==
--- NOTE | 2022-06-04 13:26 | XR_ITS ---
WS: [id number] XR lumbar spine 2-3V* [id number] REASON FOR EXAM: Left lumbar radiculopathy FINDINGS: Rotatory scoliosis convex left. Mild straightening of the normal lordosis. Mild biconcave compression deformities of L2-L4. Significant narrowing of the L5-S1 disc space with endplate sclerosis and osteophytosis. 3 mm of anterolisthesis of L5 in relation to S1. Moderate degenerative spondylosis in the facet joint s L3-S1. XR/XR lumbar spine 2-3V* [id number] IMPRESSION: Compression deformities of unknown chronicity, most likely chronic. Degenerative spondylosis as above.
== END 2022-06-04 12:56 | disposition home or self-care (01) ==
LOC: RAD 12:59
PROVIDERS: PCP Family Medicine; Visit Provider Family Medicine
DX: M54.16 Radiculopathy, lumbar region (principal); M47.896 Other spondylosis, lumbar region
CPT/HCPCS: 72100

== ENCOUNTER 2022-09-15 06:45 | Emergency (ER) | payer OTHER, SELFPAY ==
[2022-09-15] VITALS (7 sets, daily range): BP systolic 177–187; BP diastolic 88–106; PULSE 87–93; RESP 18; TEMP 37.1–38.1; O2SAT 93–95
--- NOTE | 2022-09-15 07:04 | ED_ITS ---
HPI - SOB/Dyspnea General: Chief Complaint: Shortness of Breath/Dyspnea Stated Complaint: shortness of breath, fever Time Seen by Provider: 09/15/22 06:48 Source: patient Mode of arrival: ambulatory History of Present Illness: HPI Narrative: 57-year-old female who presents to the emergency room with complaint of shortness of breath and wheezing. She reports a minimally productive cough of clear sputum which is about her baseline. She is reported a fever at home as well. She has a history of diabetes mellitus history of asthma she has been using a beta agonist in the form of either dose inhaler as well as nebulizers with moderate relief of symptoms she is also noticed a little bit of orthopnea recently. She denies any chest pain or abdominal pain. MD elicited complaint: shortness of breath and cough Pertinent past history: asthma Onset (ago): week(s) Timing: constant Severity: moderate Exacerbating factors: lying flat and coughing Relieving factors: bronchodilators (Brief relief of symptoms) Known history of: asthma Associated symptoms: Reports cough and fever(s); Deny abdominal pain, chest congestion, chest pain, diaphoresis, extremity pain, hemoptysis, lightheadedness, myalgias, nausea, orthopnea, palpitations, paresthesias, polydipsia, polyuria, rash, sense of impending doom, syncope or vomiting Treatment prior to arrival: bronchodilator Review of Systems Const: Reports: fever(s) and chills; Denies: fatigue, malaise or diaphoresis Card: Denies: chest pain, palpitations, lightheadedness, syncope or orthopnea Resp: Reports: dyspnea, productive cough and wheezing; Denies: hemoptysis or chest congestion GI: Denies: abdominal pain, nausea or vomiting : Denies: dysuria, urinary frequency or urinary urgency Musc: Denies: extremity pain Skin/Breast: Denies: rash or pruritus Endo: Denies: polyuria or polydipsia PFSH ED PFSH: Medical History Diabetes Family history of [place] (myocardial infarction) Family history of thyroid disease Surgical History H/O: hysterectomy Cancer No pertinent past surgical history Family History Sister Cancer Nasopharyngeal cancer, junctional tumor Other Diabetes Family history of premature coronary artery disease No pertinent family history Social History Smoking and tobacco status: never smoked Alcohol intake: never Substance/Drug Use: never Household members: family Housing: House Physical Exam Const: GENERAL APPEARANCE: cooperative and comfortable ORIENTATION/CONSCIOUSNESS: Yes awake, Yes oriented to person, Yes oriented to place and Yes oriented to time HENMT: COMMON NORMALS: normocephalic, atraumatic and hearing grossly normal bilaterally HEAD & SCALP: normocephalic and atraumatic Resp: COMMON NORMALS: normal respiratory effort, No retractions and No use of accessory muscles AUSCULTATION: rhonchi right lower and wheezes Cardio: COMMON NORMALS: regular rate, regular rhythm and No murmurs present (Cardio) RATE: regular rate RHYTHM: regular rhythm GI: COMMON NORMALS: Soft to palpation and No hepatosplenomegaly present AUSCULTATION: Yes normoactive bowel sounds PALPATION: Yes Soft to palpation, No Tenderness to palpation present (GI), No Guarding due to palpation present (G I) and Yes No hepatosplenomegaly present Extremity: COMMON NORMALS: normal to inspection, capillary refill normal, no clubbing, cyanosis or edema, no calf tenderness and no pedal edema Neuro: SENSORIUM/ORIENTATION: Yes oriented to person, Yes oriented to place and Yes oriented to time Skin: COMMON NORMALS: no rashes or lesions noted GENERAL SKIN EXAM: no rashes or lesions noted Course Vital Signs: Vital signs: Vital Signs Temperature 100.5 F H 09/15/22 07:18 Pulse Rate 89 09/15/22 08:57 Respiratory Rate 18 09/15/22 07:03 Blood Pressure 187/94 09/15/22 08:57 Pulse Oximetry 93 09/15/22 08:57 Oxygen Delivery Me thod Room Air 09/15/22 07:03 MDM - SOB/Dyspnea Medical Decision Making Chest x-ray shows right lower lobe pneumonia and. Oxygen sats are adequate. I believe she can be treated as an outpatient. Started on Levaquin follow-up with primary care doctor towards the end of the week or early the following week for review of symptoms and repeat chest x-ray to resolution Medical Records I reviewed the patient's medical records. Lab Data I reviewed the patient's lab results. 09/15/22 07:49 09/15/22 07:49 Labs/Radiology: Radiology Impressions Chest X-Ray 09/15/22 07:04 IMPRESSION: 1. New RIGHT lower lung field opacifications. Suspect pneumonia, RIGHT middle lobe versus RIGHT lower lobe. Recommend follow-up to resolution. 2. Mediastinal widening. Likely due to portable technique and lordotic positioning. Mild atherosclerosis aorta. Laboratory Results WBC 6.8 10^3/uL (4.0-10.0) 09/15/22 07:49 RBC 3.56 10^6/uL (4.1-5.3) L 09/15/22 07:49 Hgb 10.5 g/dL (11.5-15.3) L 09/15/22 07:49 Hct 33.8 % (37.0-47.0) L 09/15/22 07:49 MCV 94.9 fl (81-99) 09/15/22 07:49 MCH 29.5 pg (28.0-34.0) 09/15/22 07:49 MCHC 31.1 g/dL (30.0-36.0) 09/15/22 07:49 RDW 14.9 % (12.1-15.1) 09/15/22 07:49 Plt Count 221 10^3/cmm (130-400) 09/15/22 07:49 MPV 9.1 fL (7.4-10.4) 09/15/22 07:49 Neut % (Auto) 84.7 % 09/15/22 07:49 Lymph % (Auto) 8.6 % 09/15/22 07:49 Kane % (Auto) 4.9 % 09/15/22 07:49 Eos % (Auto) 0.9 % 09/15/22 07:49 Baso % (Auto) 0.3 % 09/15/22 07:49 Neut # (Auto) 5.75 10^3/uL (1.8-7.7) 09/15/22 07:49 Lymph # (Auto) 0.6 10^3/uL (0.8-4.8) L 09/15/22 07:49 Kane # (Auto) 0.3 10^3/uL (0.2-0.9) 09/15/22 07:49 Eos # (Auto) 0.1 10^3/uL (0.0-0.8) 09/15/22 07:49 Baso # (Auto) 0.0 10^3/uL (0.0-0.1) 09/15/22 07:49 Nucleated RBC % (auto) 0 % 09/15/22 07:49 Nucleated RBCs # 0.0 /100WBC 09/15/22 07:49 Sodium 131 mmol/L (136-145) L 09/15/22 07:49 Potassium 4.8 mmol/L (3.5-5.1) 09/15/22 07:49 Chloride 94 mmol/L (98-107) L 09/15/22 07:49 Carbon Dioxide 27 mmol/L (22-29) 09/15/22 07:49 Anion Gap 14.8 (5-19) 09/15/22 07:49 BUN 5 mg/dL (6-20) L 09/15/22 07:49 Creatinine 0.5 mg/dL (0.5-0.9) 09/15/22 07:49 GFR Calculation 128.1 mL/min (90-130) 09/15/22 07:49 Glucose 293 mg/dL (65-115) H 09/15/22 07:49 Calculated Osmolality 280 mOsm/kg (285-295) L 09/15/22 07:49 Calcium 9.2 mg/dL (8.5-10.5) 09/15/22 07:49 Total Bilirubin 0.3 mg/dL (0.15-1.2) 09/15/22 07:49 AST 54 U/L (0-32) H 09/15/22 07:49 ALT 27 U/L (0-33) 09/15/22 07:49 Alkaline Phosphatase 118 U/L (35-105) H 09/15/22 07:49 NT-Pro-B Natriuret Pep 324 pg/mL (0-125) H 09/15/22 07:49 Total Protein 6.8 g/dL (6.6-8.7) 09/15/22 07:49 Albumin 3.7 g/dL (3.5-5.2) 09/15/22 07:49 Globulin 3.1 g/dL (1.3-4.6) 09/15/22 07:49 Coronavirus 229E (PCR) Not detected (NOT DETECT) 09/15/22 08:34 Parainfluenza 1 (PCR) Not detected (NOT DETECT) 09/15/22 11:39 Parainfluenza 2 (PCR) Not detected (NOT DETECT) 09/15/22 11:39 Parainfluenza 3 (PCR) Detected (NOT DETECT) A 09/15/22 11:39 Parainfluenza 4 (PCR) Not detected (NOT DETECT) 09/15/22 11:39 SARS-CoV-2 (PCR) Not detected (NOT DETECT) 09/15/22 08:34 Discharge Plan Discharge Patient Disposition: Home Clinical Impression: Right lower lobe pneumonia Condition: Stable Prescriptions: New levofloxacin 750 mg tablet 750 mg PO DAILY 7 Days Qty: 7 0RF No Action albuterol sulfate 2.5 mg /3 mL (0.083 %) solution for nebulization 2.5 mg inhalation QID PRN (Reason: shortness of breath or wheezing) Qty: 90 3RF (DME) Nebulizer See Rx Instructions .Route .MEDSUPPLY Qty: 1 0RF Rx Instructions: As directed - Use every 6 hours as needed for dyspnea budesonide-formoterol [Symbicort] 80-4.5 mcg/actuation HFA aerosol inhaler 2 puff inhalation Q12H 30 Days Qty: 10.2 3RF albuterol sulfate 90 mcg/actuation HFA aerosol inhaler 2 puff inhalation Q6H PRN (Reason: shortness of breath or wheezing) Qty: 8.5 3RF metformin 500 mg tablet extended release 24 hr 500 mg PO BID Qty: 60 6RF Spiriva Respimat 1.25 mcg/actuation mist 2 puff inhalation DAILY 30 Days Qty: 4 1RF Rx Instructions: For asthma potassium chloride 10 mEq tablet extended release 10 meq PO BEDTIME acetaminophen 500 mg Tablet 1,000 mg PO Q6H PRN (Reason: Pain) ferrous sulfate [iron] 325 mg (65 mg iron) Tablet 325 mg PO BEDTIME insulin glargine [Lantus Solostar U-100 Insulin] 100 unit/mL (3 mL) insulin pe n 120 unit SUBCUT QPM fluoxetine 40 mg capsule 40 mg PO DAILY Rx Instructions: TAKE WITH 20 MG TAB TO EQUAL 60MG fluoxetine 20 mg capsule 20 mg PO DAILY Rx Instructions: TAKE WITH 40 MG TO EQUAL 60 MG ibuprofen 200 mg Tablet 400 mg PO Q6H PRN (Reason: Pain) lisinopril 10 mg tablet 10 mg PO QPM Lasix 20 mg tablet 20 mg PO QPM gabapentin 100 mg capsule 100 mg PO TID PRN (Reason: Pain) rosuvastatin 20 mg tablet 20 mg PO QPM Januvia 100 mg tablet 100 mg PO QPM Discharge Orders: Discharge ED (Routine); Ordered 09/15/22 Ordered By: Ed Davis Referrals: Marlon Bowman MD [Primary Care Provider] - Discharge Diet: Usual diet Discharge Activity: Increase activity as tolerated Patient Instructions: Opioid Safety, Pain Management Activity Restrictions/Additional Instructions: Chest x-ray showed a right lower lobe pneumonia. We will start oral antibiotics Levaquin 750 mg once daily continue to use your albuterol as needed follow-up wi th your primary care doctor within the next 5 days. If you have any worsening or change symptoms return. 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
--- NOTE | 2022-09-15 07:04 | XR_ITS ---
WS: [id number] PORTABLE CHEST HISTORY: dyspnea/cough COMPARISON: None available. Increased consolidation with opacity patient in the RIGHT lower lung field with partial obscuration o f the RIGHT diaphragm and RIGHT cardiac border. New finding since 03/03/2022. There is mild hazy atte nuation at the LEFT lung base which is probably due to overlying soft tissue attenuation. No pleural effusion or pneumothorax. Cardiac size: Mildly enlarged cardiac silhouette. Mediastinum/Aorta: Mediastinal widening. Mild atherosclerosis aorta. No osseous abnormality seen. XR/XR chest 1V portable [id number] IMPRESSION: 1. New RIGHT lower lung field opacifications. Suspect pneumonia, RIGHT middle lobe versus RIGHT lower lobe. Recommend follow-up to resolution. 2. Mediastinal widening. Likely due to portable technique and lordotic positio [place]. Mild atherosclerosis aorta.
--- NOTE | 2022-09-15 07:04 | ECG_ITS ---
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 Measurements Intervals [place] Rate: 92 P: 47 DC: 167 QRS: -2 QRSD: 108 T: 45 QT: 354 QTc: 439 Interpretive Statements SINUS RHYTHM POSSIBLE ANTERIOR MYOCARDIAL INFARCTION , OF INDETERMINATE AGE [30 ms Q WAVE IN V3/V4, OR R < 0.2 mV IN V4] Compared to ECG 03/03/2022 07:55:17 Myocardial infarct finding now present Electronically Signed On 09-15-2022 11:09:50 CDT by Eugenia Suero M.D. [id number]
[2022-09-15 08:08] LABS: Basophils % 0.3 %; Eosinophils # 0.1 10^3/uL (0.0-0.8); Eosinophils % 0.9 %; Hematocrit 33.8 % (37.0-47.0); Hemoglobin 10.5 g/dL (11.5-15.3); Lymphocytes # 0.6 10^3/uL (0.8-4.8); Lymphocytes % 8.6 %; Mean Corpuscular HGB Conc 31.1 g/dL (30.0-36.0); Mean Corpuscular Hemoglobin 29.5 pg (28.0-34.0); Mean Corpuscular Volume 94.9 fl (81-99); Mean Platelet Volume 9.1 fL (7.4-10.4); Monocytes # 0.3 10^3/uL (0.2-0.9); Monocytes % 4.9 %; Neutrophils # 5.75 10^3/uL (1.8-7.7); Neutrophils % 84.7 %; Nucleated Red Blood Cells % 0 %; Platelet Count 221 10^3/cmm (130-400); Red Blood Count 3.56 10^6/uL (4.1-5.3); Red Cell Distribution Width 14.9 % (12.1-15.1); White Blood Count 6.8 10^3/uL (4.0-10.0)
[2022-09-15 08:33] LABS: Alanine Aminotransferase 27 U/L (0-33); Albumin Level 3.7 g/dL (3.5-5.2); Alkaline Phosphatase 118 U/L (35-105); Anion Gap 14.8 (5-19); Aspartate Amino Transferase 54 U/L (0-32); Blood Urea Nitrogen 5 mg/dL (6-20); Calcium 9.2 mg/dL (8.5-10.5); Carbon Dioxide 27 mmol/L (22-29); Chloride 94 mmol/L (98-107); Globulin 3.1 g/dL (1.3-4.6); Glomerular Filtration Rate 128.1 mL/min (90-130); Glucose 293 mg/dL (65-115); NT Pro B Type Natriuretic Pept 324 pg/mL (0-125); Osmolality Calculated 280 mOsm/kg (285-295); Potassium 4.8 mmol/L (3.5-5.1); Sodium 131 mmol/L (136-145); Total Bilirubin 0.3 mg/dL (0.15-1.2); Total Protein 6.8 g/dL (6.6-8.7)
[2022-09-15 11:22] LABS: Adenovirus Not Detected (NOT DETECT); Chlamydia Pneumoniae Not Detected (NOT DETECT); Coronavirus 229E,HKU1,NL63,OC4 Not Detected (NOT DETECT); Human Metapneumovirus Not Detected (NOT DETECT); Human Rhinovirus/Enterovirus Not Detected (NOT DETECT); Influenza A Not Detected (NOT DETECT); Influenza A H1 Not Detected (NOT DETECT); Influenza A H1-2009 Not Detected (NOT DETECT); Influenza A H3 Not Detected (NOT DETECT); Influenza B Not Detected (NOT DETECT); Mycoplasma Pneumoniae Not Detected (NOT DETECT); Parainfluenza Virus Type 1 Not Detected (NOT DETECT); Parainfluenza Virus Type 2 Not Detected (NOT DETECT); Parainfluenza Virus Type 3 Detected (NOT DETECT); Parainfluenza Virus Type 4 Not Detected (NOT DETECT); Respiratory Syncytial Virus A Not Detected (NOT DETECT); Respiratory Syncytial Virus B Not Detected (NOT DETECT); SARS-COV-2 Not Detected (NOT DETECT)
[2022-09-15 11:44] LABS: Parainfluenza Virus Type 1 Not Detected (NOT DETECT); Parainfluenza Virus Type 2 Not Detected (NOT DETECT); Parainfluenza Virus Type 3 Detected (NOT DETECT); Parainfluenza Virus Type 4 Not Detected (NOT DETECT); Results from Genmark
== END 2022-09-15 08:58 | disposition home or self-care (01) ==
PROVIDERS: Emergency Provider Family Medicine; PCP Family Medicine
DX: J18.9 Pneumonia, unspecified organism (principal); Z79.4 Long term (current) use of insulin; Z79.84 Long term (current) use of oral hypoglycemic drugs; Z20.822 Contact with and (suspected) exposure to COVID-19; E11.9 Type 2 diabetes mellitus without complications
CPT/HCPCS: 36415; 71045; 80053; 83880; 85025; 87631; 87635; 93005; 99285

== ENCOUNTER → 2022-09-22 14:33 | Outpatient (BNVA) | payer OTHER, SELFPAY | PROVIDERS: PCP Family Medicine; Visit Provider Family Medicine | DX: E11.9 Type 2 diabetes mellitus without complications (principal) | CPT/HCPCS: 83036 ==

== ENCOUNTER → 2023-03-16 08:23 | Outpatient (BNVA) | payer OTHER, SELFPAY | PROVIDERS: PCP Family Medicine; Visit Provider Family Medicine | DX: D64.9 Anemia, unspecified (principal); Z13.220 Encounter for screening for lipoid disorders; Z51.81 Encounter for therapeutic drug level monitoring; E11.9 Type 2 diabetes mellitus without complications | CPT/HCPCS: 80053; 80061; 82728; 83036; 83550; 85025 ==

== ENCOUNTER → 2024-01-08 13:20 | Outpatient (BNVA) | payer OTHER, SELFPAY | PROVIDERS: PCP Family Medicine; Visit Provider Family Medicine | DX: Z00.00 Encounter for general adult medical examination without abnormal findings (principal); L02.419 Cutaneous abscess of limb, unspecified | CPT/HCPCS: 87070; 87075; 87205; 87624 ==

== ENCOUNTER 2024-06-20 00:33 | Emergency (ER) | payer OTHER, SELFPAY ==
[2024-06-20 00:35] VITALS: BP 169/81; PULSE 101; RESP 26; TEMP 37.3; O2SAT 91; BMI 56.5
[2024-06-20 01:10] VITALS: PULSE 98; RESP 24; O2SAT 92
--- NOTE | 2024-06-20 01:14 | W.ED.URI ---
HPI - URI/Sore Throat General: Chief Complaint: Upper Respiratory Infection Stated Complaint: Fever\SOB Time Seen by Provider: 06/20/24 00:50 History of Present Illness: Patient presents with acute onset of flu-like symptoms. Reports feeling well yesterday with abrupt onset of illness. Primary complaints include dry cough, subjective fever (patient reports home temperature of 106?F, though this reading is questioned for accuracy), generalized joint pain, and headache. Patient also notes mild shortness of breath when lying down. Denies nausea but reports decreased appetite and potentially inadequate fluid intake. No dysuria. No known sick contacts. Past Medical History: Significant for asthma and previous pneumonia. Medications: Has Symbicort (maintenance inhaler, admits poor compliance) and rescue inhaler (not used in past two days). 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 Reports having received flu vaccine this season. Never smoker. Related Data Home Medications ?Medication ?Instructions ?Recorded ?Confirmed acetaminophen 500 mg tablet 1,000 mg PO Q6H PRN Pain 07/09/21 01/12/24 ferrous sulfate 325 mg (65 mg 325 mg PO BEDTIME 07/09/21 01/12/24 iron) tablet (iron) ibuprofen 200 mg tablet 400 mg PO Q6H PRN Pain 03/03/22 01/12/24 Previous Rx's ?Medication ?Instructions ?Recorded Nebulizer #1 ea 03/06/22 albuterol sulfate 2.5 mg/3 mL 2.5 mg (3 mL) inhalation QID PRN 09/29/22 (0.083 %) solution for nebulization shortness of breath or wheezing #90 mL furosemide 40 mg tablet See Rx Instructions .Route 09/29/22 .COMPLEX #30 tabs cyclobenzaprine 10 mg tablet 10 mg PO TID PRN muscle spasm #60 10/20/22 tabs albuterol sulfate 90 mcg/actuation 2 puff inhalation Q6H PRN 03/17/23 aerosol inhaler shortness of breath or wheezing #8.5 grams budesonide-formoterol HFA 80 2 puff inhalation Q12H 30 days 03/17/23 mcg-4.5 mcg/actuation aerosol #10.2 grams inhaler (Symbicort) tiotropium bromide 1.25 2 puff inhalation DAILY 30 days #4 03/17/23 mcg/actuation mist for inhalation grams (Spiriva Respimat) tobramycin 0.3 % eye drops See Rx Instructions .Route 10/15/23 .COMPLEX #5 mL hydrochlorothiazide 12.5 mg tablet 12.5 mg PO BEDTIME #30 tabs 10/16/23 blood-glucose meter,continuous #1 ea 01/08/24 (Dexcom G6 Hose Operator) blood-glucose sensor (Dexcom G6 #3 ea 01/08/24 Sensor device) blood-glucose transmitter (Dexcom #1 ea 01/08/24 G6 Transmitter device) dulaglutide 0.75 mg/0.5 mL 0.75 mg (0.5 mL) SUBCUT Q7D #2 mL 01/08/24 subcutaneous pen injector (Trulicity) insulin glargine 100 unit/mL (3 See Rx Instructions .Route 01/08/24 mL) subcutaneous pen (Lantus .COMPLEX #60 mL Solostar U-100 Insulin) levofloxacin 500 mg tablet 500 mg PO DAILY #10 tabs 01/08/24 fluconazole 150 mg tablet 150 mg PO ONCE #1 tab 01/12/24 ropinirole 1 mg tablet 1 mg PO DAILY #30 tabs 01/12/24 fluoxetine 20 mg capsule See Rx Instructions .Route 03/21/24 .COMPLEX #30 caps fluoxetine 40 mg capsule See Rx Instructions .Route 03/21/24 .COMPLEX #30 caps sitagliptin phosphate 100 mg 100 mg PO QPM #30 tabs 03/21/24 tablet (Januvia) potassium chloride 10 mEq See Rx Instructions .Route 04/14/24 tablet,extended release .COMPLEX #30 tabs lisinopril 10 mg tablet 10 mg PO QPM #90 tabs 05/23/24 rosuvastatin 20 mg tablet 20 mg PO QPM #90 tabs 05/23/24 gabapentin 100 mg capsule See Rx Instructions .Route 05/31/24 .COMPLEX #90 caps metformin 500 mg tablet,extended 500 mg PO BID #60 tabs 06/13/24 release 24 hr Allergies Allergy/AdvReac Type Severity Reaction Status Date / Time No Known Allergies Allergy Verified 06/20/24 00:40 [facility] [place] ED PFSH: Medical History Diabetes Family history of thyroid disease Family history of [place] (myocardial infarction) Surgical History H/O: hysterectomy Cancer - Removal of both ovaries and cervix No pertinent past surgical history Family History Sister Cancer Nasopharyngeal cancer, junctional tumor Other Diabetes Family history of premature coronary artery disease No pertinent family history Social History Smoking and tobacco/nicotine status: never used tobacco/nicotine Alcohol intake: never Substance/Drug Use: never Household members: family Housing: House Physical Exam Const: COMMON NORMALS: no acute distress, patient oriented x3, alert and well nourished HENMT: COMMON NORMALS: normocephalic HEAD & SCALP: normocephalic Eye: COMMON NORMALS: Equal, round and reactive pupils present, EOMs intact bilaterally and conjunctivae normal CONJUNCTIVA: Yes conjunctivae normal PUPIL: Yes Equal, round and reactive pupils present Neck/C-Spine: COMMON NORMALS: full ROM, no lymphadenopathy, supple, no meningeal signs, no JVD and Thyroid normal THYROID: Thyroid normal Chest: COMMONS NORMALS: normal inspection of the chest and normal palpation of entire chest wall Resp: COMMON NORMALS: normal respiratory effort, No retractions, No use of accessory muscles, clear to auscultation bilaterally and percussion normal AUSCULTATION: clear to auscultation bilaterally PERCUSSION: percussion normal Cardio: COMMON NORMALS: no JVD GI: COMMON NORMALS: Normal to inspection, nondistended, normoactive bowel sounds present, Soft to palpation, non-tender, No hepatosplenomegaly present, no masses and no bruits PALPATION: Yes Soft to palpation and Yes No hepatosplenomegaly present : COMMON NORMALS: Yes no CVA tenderness BLADDER/KIDNEY EXAM: Yes no CVA tenderness Back/Pelvis: COMMON NORMALS: no CVA tenderness Extremity: COMMON NORMALS: normal to inspection, full ROM, capillary refill normal, no joint enlargement, no clubbing, cyanosis or edema, no calf tenderness and no pedal edema Neuro: COMMON NORMALS: patient oriented x3 SENSORIUM/ORIENTATION: Yes alert MENINGEAL SIGNS: Yes no meningeal signs Skin: COMMON NORMALS: no rashes or lesions noted, turgor normal and no jaundice GENERAL SKIN EXAM: no rashes or lesions noted and turgor normal Course Vital Signs: Vital signs: Vital Signs Temperature 99.2 F 06/20/24 00:35 Pulse Rate 98 06/20/24 01:10 Respiratory Rate 24 H 06/20/24 01:10 Blood Pressure 169/81 06/20/24 00:35 Pulse Oximetry 92 06/20/24 01:10 Oxygen Delivery Me thod Room Air 06/20/24 00:35 MDM - URI/Sore Throat Medical Decision Making 1. Probable Influenza A infection despite negative testing (considering 20% false negative rate) - Clinical presentation highly consistent with influenza - Current outbreak in community - Will not prescribe Tamiflu due to side effect profile and limited efficacy - Recommend supportive care with high-dose ibuprofen - Must remain off work until afebrile for 24 hours - Anticipate 2-5 days of symptoms 2. Asthma - Resume Symbicort maintenance inhaler as prescribed - Continue rescue inhaler as needed for symptoms 3. General Measures: - Increase fluid intake - Rest as needed - Follow good hand hygiene practices, especially given immunocompromised coworker - Return if symptoms worsen or fail to improve within expected timeframe Lab Data Laboratory Results Influenza A (PCR) Negative (Negative) 06/20/24 01:10 Influenza Type B (PCR) Negative (Negative) 06/20/24 01:10 RSV (PCR) Negative (Negative) 06/20/24 01:10 SARS-CoV-2 (PCR) Negative (Negative) 06/20/24 01:10 No radiology studies performed this visit Discharge Plan Discharge Patient Disposition: Home Clinical Impression: Influenza Condition: Stable Prescriptions: No Action (DME) Nebulizer See Rx Instructions .Route .MEDSUPPLY Qty: 1 0RF Rx Instructions: As directed - Use every 6 hours as needed for dyspnea ropinirole 1 mg tablet 1 mg PO DAILY Qty: 30 3RF fluconazole 150 mg tablet 150 mg PO ONCE Qty: 1 2RF albuterol sulfate 90 mcg/actuation HFA aerosol inhaler 2 puff inhalation Q6H PRN (Reason: shortness of breath or wheezing) Qty: 8.5 3RF budesonide-formoterol [Symbicort] 80-4.5 mcg/actuation HFA aerosol inhaler 2 puff inhalation Q12H 30 Days Qty: 10.2 3RF Spiriva Respimat 1.25 mcg/actuation mist 2 puff inhalation DAILY 30 Days Qty: 4 1RF Rx Instructions: For asthma insulin glargine [Lantus Solostar U-100 Insulin] 100 unit/mL (3 mL) insulin pen See Rx Instructions .ROUTE .COMPLEX Qty: 60 5RF Dose Instruction: INJECT 120 UNITS SUBCUTANEOUSLY EVERY EVENING Rx Instructions: INJECT 100 UNITS SUBCUTANEOUSLY EVERY EVENING Trulicity 0.75 mg/0.5 mL pen injector 0.75 mg SUBCUT Q7D Qty: 2 6RF levofloxacin 500 mg tablet 500 mg PO DAILY Qty: 10 0RF (DME) Dexcom G6 Sensor Device See Rx Instructions .ROUTE .MEDSUPPLY Qty: 3 6RF Rx Instructions: As directed ([facility]) Dexcom G6 Hose Operator Misc See Rx Instructions .ROUTE .MEDSUPPLY Qty: 1 0RF Rx Instructions: As directed ([facility]) Dexcom G6 Transmitter Device See Rx Instructions .ROUTE .MEDSUPPLY Qty: 1 2RF Rx Instructions: As directed albuterol sulfate 2.5 mg /3 mL (0.083 %) solution for nebulization 2.5 mg inhalation QID PRN (Reason: shortness of breath or wheezing) Qty: 90 3RF furosemide 40 mg tablet See Rx Instructions .ROUTE .COMPLEX Qty: 30 8RF Dose Instruction: TAKE 1 TABLET BY MOUTH NEEDED FOR SWELLING Rx Instructions: TAKE 1 TABLET BY MOUTH NEEDED FOR SWELLING cyclobenzaprine 10 mg tablet 10 mg PO TID PRN (Reason: muscle spasm) Qty: 60 1RF tobramycin 0.3 % drops See Rx Instructions .Route .COMPLEX Qty: 5 0RF Rx Instructions: Instill 1-2 drops into the affected eye(s) every 4-6 hours until better; hydrochlorothiazide 12.5 mg tablet 12.5 mg PO BEDTIME Qty: 30 6RF Januvia 100 mg tablet 100 mg PO QPM Qty: 30 6RF fluoxetine 40 mg capsule See Rx Instructions .ROUTE .COMPLEX Qty: 30 6RF Dose Instruction: take ONE capsule BY MOUTH EVERY DAY (take with 20mg) Rx Instructions: take ONE capsule BY MOUTH EVERY DAY (take with 20mg) fluoxetine 20 mg capsule See Rx Instructions .ROUTE .COMPLEX Qty: 30 6RF Dose Instruction: TAKE 1 CAPSULE BY MOUTH EVERY DAY (TAKE WITH 40MG CAPSULE) Rx Instructions: TAKE 1 CAPSULE BY MOUTH EVERY DAY (TAKE WITH 40MG CAPSULE) potassium chloride 10 mEq tablet extended release See Rx Instructions .ROUTE .COMPLEX Qty: 30 8RF Dose Instruction: TAKE 1 TABLET BY MOUTH EVERY DAY WHEN TAKING FUROSEMIDE Rx Instructions: TAKE 1 TABLET BY MOUTH EVERY DAY WHEN TAKING FUROSEMIDE rosuvastatin 20 mg tablet 20 mg PO QPM Qty: 90 3RF lisinopril 10 mg tablet 10 mg PO QPM Qty: 90 3RF gabapentin 100 mg capsule See Rx Instructions .ROUTE .COMPLEX Qty: 90 3RF Dose Instruction: TAKE ONE CAPSULE BY MOUTH THREE TIMES DAILY Rx Instructions: TAKE ONE CAPSULE BY MOUTH THREE TIMES DAILY metformin 500 mg tablet extended release 24 hr 500 mg PO BID Qty: 60 6RF acetaminophen 500 mg Tablet 1,000 mg PO Q6H PRN (Reason: Pain) ferrous sulfate [iron] 325 mg (65 mg iron) Tablet 325 mg PO BEDTIME ibuprofen 200 mg Tablet 400 mg PO Q6H PRN (Reason: Pain) Discharge Orders: Discharge ED (Routine); Ordered 06/20/24 Ordered By: Maximilian Chao Referrals: Marlon Bowman MD [Primary Care Provider] - Discharge Diet: Usual diet Discharge Activity: Limit activity as instructed Patient Instructions: Opioid Safety, Pain Management Activity Restrictions/Additional Instructions: 1. Rest, fluids and return to work when fever free for 24-48 hours. Make sure to take inhalers and use high dose (600-800mg) ibuprofen every 6-8 hours as needed. 2. Follow up with PCP at end of week if not better. Return here if worse. 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
[2024-06-20 02:00] LABS: Influenza A NEGATIVE (Negative); Influenza B NEGATIVE (Negative); Respiratory Syncytial Virus Ce NEGATIVE (Negative); SARS-CoV-2 PCR NEGATIVE (Negative)
[2024-06-20 02:52] VITALS: BP 152/79; PULSE 103; RESP 22; O2SAT 92
== END 2024-06-20 02:54 | disposition home or self-care (01) ==
PROVIDERS: Emergency Provider Family Medicine; PCP Family Medicine
DX: J11.1 Influenza due to unidentified influenza virus with other respiratory manifestations (principal); Z11.52 Encounter for screening for COVID-19; Z79.4 Long term (current) use of insulin; Z79.84 Long term (current) use of oral hypoglycemic drugs; E11.9 Type 2 diabetes mellitus without complications
CPT/HCPCS: 87637; 99283

== ENCOUNTER 2024-06-21 16:00 | Inpatient (IN) | payer OTHER, SELFPAY ==
[2024-06-21] VITALS (10 sets, daily range): BP systolic 124–176; BP diastolic 64–99; PULSE 88–108; RESP 18–27; TEMP 36.9–38.8; O2SAT 90–98; BMI 56.5
--- NOTE | 2024-06-21 16:30 | ECG_ITS ---
[facility] 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 Measurements Intervals [place] Rate: 104 P: 31 ND: 160 QRS: -18 QRSD: 99 T: 60 QT: 339 QTc: 448 Interpretive Statements SINUS TACHYCARDIA LOW QRS VOLTAGE IN PRECORDIAL LEADS [QRS DEFLECTION < 1.0 mV IN CHEST LEADS] POSSIBLE ANTERIOR MYOCARDIAL INFARCTION , PROBABLY OLD [30 ms Q WAVE IN V3/V4, OR R < 0.2 mV IN V4] ABNORMAL RHYTHM ECG INTERPRETATION BASED ON A DEFAULT AGE OF 40 YEARS Compared to ECG 09/15/2022 07:18:07 Low QRS voltage now present Sinus rhythm no longer present Myocardial infarct finding still present Electronically Signed On 06-21-2024 19:16:17 CDT by Remigio Sheldon M.D. [email or web address] [id number]
--- NOTE | 2024-06-21 16:30 | XRR_ITS ---
PROCEDURE INFORMATION: Exam: XR Chest Exam date and time: 06/21/2024 4:33 PM Age: 59 years old Clinical indication: Cough and dyspnea; Additional info: Dyspnea/cough TECHNIQUE: Imaging protocol: Radiologic exam of the chest. Views: 1 view. COMPARISON: CR XR chest 1V portable [id number] 09/15/2022 7:29 AM FINDINGS: Lungs: Bibasilar opacities are again seen which may reflect atelectasis and/or infiltrates. Pleural spaces: Unremarkable. No pleural effusion. No pneumothorax. Heart/Mediastinum: Similar widening of the mediastinum which may be due to patient position. Bones/joints: Unremarkable. XR/XR chest 1V portable [id number] IMPRESSION: As above.
--- NOTE | 2024-06-21 16:30 | W.ED.SOB ---
Documented by User: Ed Davis, 06/22/24 06:04 HPI - SOB/Dyspnea General: Chief Complaint: Shortness of Breath/Dyspnea Stated Complaint: sob Time Seen by Provider: 06/21/24 16:24 History of Present Illness: HPI Narrative: 59-year-old female presents emergency room with complaint of shortness of breath and fever for the last several days. Moderately productive cough denies chest or abdominal pain multiple exposures to contacts with flulike symptoms. Patient does have a history of COPD. Additionally she is diabetic. No dysuria urgency or frequency no hemoptysis Associated symptoms: Reports chest congestion and fever(s); Deny abdominal pain or chest pain Related Data Home Medications ?Medication ?Instructions ?Recorded ?Confirmed acetaminophen 500 mg tablet 1,000 mg PO Q6H PRN Pain 07/09/21 06/21/24 ferrous sulfate 325 mg (65 mg 325 mg PO BEDTIME 07/09/21 06/21/24 iron) tablet (iron) ibuprofen 200 mg tablet 400 mg PO Q6H PRN Pain 03/03/22 06/21/24 furosemide 40 mg tablet 40 mg PO DAILY PRN swelling 06/21/24 06/21/24 gabapentin 100 mg capsule 100 mg PO TID 06/21/24 06/21/24 insulin glargine 100 unit/mL (3 100 unit SUBCUT QPM 06/21/24 06/21/24 mL) subcutaneous pen (Lantus Solostar U-100 Insulin) potassium chloride 10 mEq See Rx Instructions .Route .COMPLEX 06/21/24 06/21/24 tablet,extended release Previous Rx's ?Medication ?Instructions ?Recorded Nebulizer #1 ea 03/06/22 hydrochlorothiazide 12.5 mg tablet 12.5 mg PO BEDTIME #30 tabs 10/16/23 blood-glucose meter,continuous #1 ea 01/08/24 (Dexcom G6 Chip Machine Operator) blood-glucose sensor (Dexcom G6 #3 ea 01/08/24 Sensor device) blood-glucose transmitter (Dexcom #1 ea 01/08/24 G6 Transmitter device) dulaglutide 0.75 mg/0.5 mL 0.75 mg (0.5 mL) SUBCUT Q7D #2 mL 01/08/24 subcutaneous pen injector ([facility]) ropinirole 1 mg tablet 1 mg PO DAILY #30 tabs 01/12/24 fluoxetine 20 mg capsule See Rx Instructions .Route 03/21/24 .COMPLEX #30 caps fluoxetine 40 mg capsule See Rx Instructions .Route 03/21/24 .COMPLEX #30 caps sitagliptin phosphate 100 mg 100 mg PO QPM #30 tabs 03/21/24 tablet (Januvia) lisinopril 10 mg tablet 10 mg PO QPM #90 tabs 05/23/24 rosuvastatin 20 mg tablet 20 mg PO QPM #90 tabs 05/23/24 metformin 500 mg tablet,extended 500 mg PO BID #60 tabs 06/13/24 release 24 hr Allergies Allergy/AdvReac Type Severity Reaction Status Date / Time No Known Allergies Allergy Verified 06/21/24 16:11 Review of Systems Const: Reports: fever(s), chills, body aches, change in appetite, fatigue and malaise Card: Denies: chest pain Resp: Reports: dyspnea, productive cough, wheezing and chest congestion GI: Denies: abdominal pain : Denies: dysuria, urinary frequency or urinary urgency Musc: Denies: neck pain or back pain Skin/Breast: Denies: rash PFSH ED PFSH: Medical History Diabetes Family history of thyroid disease Family history of IN (myocardial infarction) Surgical History H/O: hysterectomy Cancer - Removal of both ovaries and cervix No pertinent past surgical history Family History Sister Cancer Nasopharyngeal cancer, junctional tumor Other Diabetes Family history of premature coronary artery disease No pertinent family history Social History Smoking and tobacco/nicotine status: never used tobacco/nicotine Alcohol intake: never Substance/Drug Use: never Household members: family Housing: House Physical Exam Const: GENERAL APPEARANCE: cooperative ORIENTATION/CONSCIOUSNESS: Yes awake, Yes oriented to person, Yes oriented to place and Yes oriented to time HENMT: COMMON NORMALS: normocephalic, atraumatic and hearing grossly normal bilaterally HEAD & SCALP: normocephalic and atraumatic Resp: EFFORT & INSPECTION: Yes tachypneic AUSCULTATION: rhonchi and wheezes Cardio: COMMON NORMALS: regular rhythm and No murmurs present (Cardio) RATE: tachycardic RHYTHM: regular rhythm GI: COMMON NORMALS: Soft to palpation and No hepatosplenomegaly present AUSCULTATION: Yes normoactive bowel sounds PALPATION: Yes Soft to palpation, No Tenderness to palpation present (GI), No Guarding due to palpation present (GI) and Yes No hepatosplenomegaly present Extremity: COMMON NORMALS: normal to inspection, capillary refill normal and no calf tenderness OTHER: Lower extremity edema Neuro: SENSORIUM/ORIENTATION: Yes oriented to person, Yes oriented to place and Yes oriented to time Skin: COMMON NORMALS: no rashes or lesions noted GENERAL SKIN EXAM: no rashes or lesions noted Course Vital Signs: Vital signs: Vital Signs Temperature 98.6 F 06/22/24 04:33 Pulse Rate 77 06/22/24 04:33 Respiratory Rate 17 06/22/24 04:33 Blood Pressure 155/88 06/22/24 04:33 Pulse Oximetry 95 06/22/24 04:33 Oxygen Delivery Wy thod Nasal Cannula 06/22/24 04:33 Oxygen Flow Rate 3 06/22/24 04:33 MDM - SOB/Dyspnea Medical Decision Making Care signed out to Dr. Weaver at change of shift. See final notes for diagnosis and disposition. Patient care transitioned to mi at shift change. Awaiting workup. Differential diagnosis for patient with shortness of breath includes but is not limited to and based on the above HPI, review of systems and physical exam: Pneumonia. Bronchitis. Asthma or COPD with acute exacerbation. Acute coronary syndrome / IN. Pulmonary embolism. Anxiety. Congestive heart failure. Viral infections including influenza and Covid-19. Atrial fibrillation. Anxiety. Pleural effusion. Pneumothorax. Orders placed to evaluate differential diagnosis based on the above differential, HPI and physical exam Chest x-ray: Infiltrates are present. This was reviewed and interpreted by myself the emergency room physician. I also reviewed the radiology report. CTA of the chest PE protocol: No pulmonary embolism. Patient does have fluffy infiltrates in the right lung likely pneumonia. Possibly underlying pulmonary nodules. Bilateral hilar lymph nodes. Adrenal gland nodule that MRI is recommended. This was reviewed and interpreted by myself the emergency room physician. I also reviewed the radiology report. Lab Review: Laboratory results were reviewed and interpreted by myself the emergency room physician. Leukocytosis with a white count of 16,000. This is different from previous. 88% neutrophils. Lactate however is -2. No renal failure. No anemia. AB.4 with an O2 sat of 89% on 2 L nasal cannula. Confirming hypoxemia I reviewed the patient's medical record. Reexamination: On my reexamination the patient still requiring 2 L nasal cannula but she is up at bedside table eating dinner. No acute distress at this time. No altered mental status. No focal motor deficits. We discussed admission. Consultation: I spoke with Dr. Gutierrez who is on-call for the hospital service who agrees to admission Assessment and plan: Pneumonia Possible sepsis ?Patient is febrile and was tachycardic initially. Hypoxemic. She has a mild leukocytosis with no lactic acidosis. Possible sepsis so being treated as such. -2.5 L normal saline bolus. Fluid volumes based on ideal body weight. -Levaquin was administered. -Sepsis quality measures. -Lactic acid with a reflex was ordered. -Blood cultures were ordered. -I discussed the patient with the hospitalist on-call who is admitting the patient. - Discussed findings and plan with patient. Answered any questions. - All laboratory values were reviewed and interpreted personally by myself, the ER physician - All imaging was reviewed and interpreted personally by myself, the ER physician. - Evaluation and treatment of this problem were appropriate in the emergency setting Critical care -I spent a total of >35 minutes of critical care time managing the patient, independent of any other practitioner. -The time involved in the performance of separately reportable procedures was not counted towards critical care time. Lab Data 06/22/24 04:21 06/21/24 17:51 Labs/Radiology: Radiology Impressions Chest X-Ray 06/21/24 16:30 IMPRESSION: As above. Chest CTA 06/21/24 18:11 IMPRESSION: 1. No pulmonary embolism. 2. Fluffy infiltrates in the right lung may reflect pneumonia. Although underlying pulmonary nodules of a neoplastic origin can not be excluded. Consider short-term follow-up study to ensure resolution. 3. Bilateral hilar lymph nodes. 4. Right adrenal gland indeterminate nodule. This can be better assessed with a follow up MRI abdomen with and without contrast study. Laboratory Results WBC 16.34 10^3/uL (3.29-11.43) H 06/21/24 17:51 RBC 4.06 10^6/uL (3.85-5.65) 06/21/24 17:51 Hgb 11.60 g/dL (11.27-16.99) 06/21/24 17:51 Hct 38.3 % (36-47) 06/21/24 17:51 MCV 94.3 fl (85-98) 06/21/24 17:51 MCH 28.6 pg (27-33) 06/21/24 17:51 MCHC 30.3 g/dL (30-55) 06/21/24 17:51 RDW 15.4 % (12.1-15.1) H 06/21/24 17:51 Plt Count 271 10^3/cmm (157-399) 06/21/24 17:51 MPV 9.4 fL (7.4-10.4) 06/21/24 17:51 Neut % (Auto) 88.2 % 06/21/24 17:51 Lymph % (Auto) 7.2 % 06/21/24 17:51 [place] % (Auto) 3.4 % 06/21/24 17:51 Eos % (Auto) 0.6 % 06/21/24 17:51 Baso % (Auto) 0.2 % 06/21/24 17:51 Neut # (Auto) 14.44 10^3/uL (1.8-7.7) H 06/21/24 17:51 Lymph # (Auto) 1.2 10^3/uL (0.8-4.8) 06/21/24 17:51 [place] # (Auto) 0.6 10^3/uL (0.2-0.9) 06/21/24 17:51 Eos # (Auto) 0.1 10^3/uL (0.0-0.8) 06/21/24 17:51 Baso # (Auto) 0.0 10^3/uL (0.0-0.1) 06/21/24 17:51 Nucleated RBC % (auto) 0 % 06/21/24 17:51 Nucleated RBCs # 0.0 /100WBC 06/21/24 17:51 Specimen Type Arterial 06/21/24 16:52 Sample Site Brachial, left 06/21/24 16:52 ABG pH 7.46 (7.35-7.45) H 06/21/24 16:52 ABG pCO2 41.7 mmHg (35-45) 06/21/24 16:52 ABG pO2 59.0 mmHg (80.0-100.0) L 06/21/24 16:52 ABG PO2/FiO2 Ratio 210 06/21/24 16:52 ABG HCO3 29.8 mmol/L (22-26) H 06/21/24 16:52 ABG O2 Saturation 91.6 06/21/24 16:52 ABG Base Excess 5.5 mmol/L (-2.0-2.0) H 06/21/24 16:52 Vicente Test N/a 06/21/24 16:52 A-a O2 Gradient 11.3 mmHg (5-10) H 06/21/24 16:52 Hematocrit 39.1 % (37-47) 06/21/24 16:52 Hgb O2 Saturation 89.2 % (95-100) L 06/21/24 16:52 Carboxyhemoglobin 1.6 %THgb (0.4-20.1) 06/21/24 16:52 Methemoglobin 1.0 % (0.4-1.5) 06/21/24 16:52 Total Hemoglobin 12.8 g/dL (12-16) 06/21/24 16:52 Sodium 135.0 mmol/L (131-143) 06/21/24 16:52 Potassium 4.0 mmol/L (3.5-5.0) 06/21/24 16:52 Glucose 228.0 mg/dL (70-115) H 06/21/24 16:52 Ionized Calcium 1.2 mmol/L (1.1-1.4) 06/21/24 16:52 O2 Delivery Device Nc 06/21/24 16:52 O2 Liters/Min 2.0 % 06/21/24 16:52 FiO2 28.0 % 06/21/24 16:52 Oyster Farmer ID Amh 06/21/24 16:52 Sodium 135 mmol/L (136-145) L 06/21/24 17:51 Potassium 4.2 mmol/L (3.5-5.1) 06/21/24 17:51 Chloride 95 mmol/L (98-107) L 06/21/24 17:51 Carbon Dioxide 26 mmol/L (22-29) 06/21/24 17:51 Anion Gap 18.2 (5-19) 06/21/24 17:51 BUN 8 mg/dL (6-20) 06/21/24 17:51 Creatinine 0.5 mg/dL (0.5-0.9) 06/21/24 17:51 GFR Calculation 127.2 mL/min (90-130) 06/21/24 17:51 Glucose 215 mg/dL (65-115) H 06/21/24 17:51 Calculated Osmolality 285 mOsm/kg (285-295) 06/21/24 17:51 Lactic Acid 2.0 mmol/L (0.5-2.2) 06/21/24 17:51 Calcium 9.3 mg/dL (8.5-10.5) 06/21/24 17:51 Total Bilirubin 0.4 mg/dL (0.15-1.2) 06/21/24 17:51 AST 10 U/L (0-32) 06/21/24 17:51 ALT 13 U/L (0-33) 06/21/24 17:51 Alkaline Phosphatase 126 U/L (35-105) H 06/21/24 17:51 Total Protein 7.6 g/dL (6.6-8.7) 06/21/24 17:51 Albumin 4.0 g/dL (3.5-5.2) 06/21/24 17:51 Globulin 3.6 g/dL (1.3-4.6) 06/21/24 17:51 Procalcitonin 0.17 ng/mL (0-0.5) 06/21/24 17:51 Urine Color Yellow (Yellow) 06/21/24 17:40 Urine Appearance Clear (CLEAR) 06/21/24 17:40 Urine pH 6.0 (5-7) 06/21/24 17:40 Ur Specific [place] 1.023 (1.005-1.030) 06/21/24 17:40 Urine Protein 1+ (Negative) A 06/21/24 17:40 Urine Glucose (UA) Negative (Normal) 06/21/24 17:40 Urine Ketones Negative (Negative) 06/21/24 17:40 Urine Blood Negative (Negative) 06/21/24 17:40 Urine Nitrate Negative (Negative) 06/21/24 17:40 Urine Bilirubin Negative (Negative) 06/21/24 17:40 Urine Urobilinogen 1.0 mg/dL (Negative) 06/21/24 17:40 Ur Leukocyte Esterase Negative (Negative) 06/21/24 17:40 Urine RBC 0-2 /hpf (0-2) 06/21/24 17:40 Urine WBC 0-5 /hpf (0-5) 06/21/24 17:40 Ur Squamous Epith Cells 0-5 /hpf (0-5) 06/21/24 17:40 Amorphous Sediment Not Reportable 06/21/24 17:40 Urine Bacteria None seen /hpf (NONE) 06/21/24 17:40 Hyaline Casts 0.40 /lpf 06/21/24 17:40 Influenza A (PCR) Negative (Negative) 06/21/24 17:40 Influenza Type B (PCR) Negative (Negative) 06/21/24 17:40 RSV (PCR) Negative (Negative) 06/21/24 17:40 SARS-CoV-2 (PCR) Negative (Negative) 06/21/24 17:40 Discharge Plan Discharge Patient Disposition: Admitted As Inpatient Admit Provider: Wayne Gutierrez Clinical Impression: Pneumonia, Severe obstructive sleep apnea, Diabetes mellitus type 2, uncontrolled, Acute hypoxemic respiratory failure Condition: Stable Coding Level of Care Code ED Facing Baster for Chg Fwd Documented by User: Elma Weaver MD 06/21/24 20:17 HPI - SOB/Dyspnea General: Chief Complaint: Shortness of Breath/Dyspnea Stated Complaint: sob Time Seen by Provider: 06/21/24 16:24 Related Data Home Medications ?Medication ?Instructions ?Recorded ?Confirmed acetaminophen 500 mg tablet 1,000 mg PO Q6H PRN Pain 07/09/21 06/21/24 ferrous sulfate 325 mg (65 mg 325 mg PO BEDTIME 07/09/21 06/21/24 iron) tablet (iron) ibuprofen 200 mg tablet 400 mg PO Q6H PRN Pain 11/28/22 03/18/25 furosemide 40 mg tablet 40 mg PO DAILY PRN swelling 06/21/24 06/21/24 gabapentin 100 mg capsule 100 mg PO TID 06/21/24 06/21/24 insulin glargine 100 unit/mL (3 100 unit SUBCUT QPM 06/21/24 06/21/24 mL) subcutaneous pen (Lantus Solostar U-100 Insulin) potassium chloride 10 mEq See Rx Instructions .Route .COMPLEX 06/21/24 06/21/24 tablet,extended release Previous Rx's ?Medication ?Instructions ?Recorded Nebulizer #1 ea 03/06/22 hydrochlorothiazide 12.5 mg tablet 12.5 mg PO BEDTIME #30 tabs 10/16/23 blood-glucose meter,continuous #1 ea 01/08/24 (Dexcom G6 Chip Machine Operator) blood-glucose sensor (Dexcom G6 #3 ea 01/08/24 Sensor device) blood-glucose transmitter (Dexcom #1 ea 01/08/24 G6 Transmitter device) dulaglutide 0.75 mg/0.5 mL 0.75 mg (0.5 mL) SUBCUT Q7D #2 mL 01/08/24 subcutaneous pen injector ([facility]) ropinirole 1 mg tablet 1 mg PO DAILY #30 tabs 01/12/24 fluoxetine 20 mg capsule See Rx Instructions .Route 03/21/24 .COMPLEX #30 caps fluoxetine 40 mg capsule See Rx Instructions .Route 03/21/24 .COMPLEX #30 caps sitagliptin phosphate 100 mg 100 mg PO QPM #30 tabs 03/21/24 tablet (Januvia) lisinopril 10 mg tablet 10 mg PO QPM #90 tabs 05/23/24 rosuvastatin 20 mg tablet 20 mg PO QPM #90 tabs 05/23/24 metformin 500 mg tablet,extended 500 mg PO BID #60 tabs 06/13/24 release 24 hr Allergies Allergy/AdvReac Type Severity Reaction Status Date / Time No Known Allergies Allergy Verified 06/21/24 16:11 PFS ED PFSH: Medical History Diabetes Family history of thyroid disease Family history of [place] (myocardial infarction) Surgical History H/O: hysterectomy Cancer - Removal of both ovaries and cervix No pertinent past surgical history Family History Sister Cancer Nasopharyngeal cancer, junctional tumor Other Diabetes Family history of premature coronary artery disease No pertinent family history Social History Smoking and tobacco/nicotine status: never used tobacco/nicotine Alcohol intake: never Substance/Drug Use: never Household members: family Housing: House Course Vital Signs: Vital signs: Vital Signs Temperature 98.6 F 06/22/24 04:33 Pulse Rate 77 06/22/24 04:33 Respiratory Rate 17 06/22/24 04:33 Blood Pressure 155/88 06/22/24 04:33 Pulse Oximetry 95 06/22/24 04:33 Oxygen Delivery Me thod Nasal Cannula 06/22/24 04:33 Oxygen Flow Rate 3 06/22/24 04:33 MDM - SOB/Dyspnea Medical Decision Making Patient care transitioned to mi at shift change. Awaiting workup. Differential diagnosis for patient with shortness of breath includes but is not limited to and based on the above HPI, review of systems and physical exam: Pneumonia. Bronchitis. Asthma or COPD with acute exacerbation. Acute coronary syndrome / IN. Pulmonary embolism. Anxiety. Congestive heart failure. Viral infections including influenza and Covid-19. Atrial fibrillation. Anxiety. Pleural effusion. Pneumothorax. Orders placed to evaluate differential diagnosis based on the above differential, HPI and physical exam Chest x-ray: Infiltrates are present. This was reviewed and interpreted by myself the emergency room physician. I also reviewed the radiology report. CTA of the chest PE protocol: No pulmonary embolism. Patient does have fluffy infiltrates in the right lung likely pneumonia. Possibly underlying pulmonary nodules. Bilateral hilar lymph nodes. Adrenal gland nodule that MRI is recommended. This was reviewed and interpreted by myself the emergency room physician. I also reviewed the radiology report. Lab Review: Laboratory results were reviewed and interpreted by myself the emergency room physician. Leukocytosis with a white count of 16,000. This is different from previous. 88% neutrophils. Lactate however is -2. No renal failure. No anemia. AB.4 with an O2 sat of 89% on 2 L nasal cannula. Confirming hypoxemia I reviewed the patient's medical record. Reexamination: On my reexamination the patient still requiring 2 L nasal cannula but she is up at bedside table eating dinner. No acute distress at this time. No altered mental status. No focal motor deficits. We discussed admission. Consultation: I spoke with Dr. Gutierrez who is on-call for the hospital service who agrees to admission Assessment and plan: Pneumonia Possible sepsis ?Patient is febrile and was tachycardic initially. Hypoxemic. She has a mild leukocytosis with no lactic acidosis. Possible sepsis so being treated as such. -2.5 L normal saline bolus. Fluid volumes based on ideal body weight. -Levaquin was administered. -Sepsis quality measures. -Lactic acid with a reflex was ordered. -Blood cultures were ordered. -I discussed the patient with the hospitalist on-call who is admitting the patient. - Discussed findings and plan with patient. Answered any questions. - All laboratory values were reviewed and interpreted personally by myself, the ER physician - All imaging was reviewed and interpreted personally by myself, the ER physician. - Evaluation and treatment of this problem were appropriate in the emergency setting Critical care -I spent a total of >35 minutes of critical care time managing the patient, independent of any other practitioner. -The time involved in the performance of separately reportable procedures was not counted towards critical care time. Lab Data 06/22/24 04:21 06/21/24 17:51 Labs/Radiology: Radiology Impressions Chest X-Ray 06/21/24 16:30 IMPRESSION: As above. Chest CTA 06/21/24 18:11 IMPRESSION: 1. No pulmonary embolism. 2. Fluffy infiltrates in the right lung may reflect pneumonia. Although underlying pulmonary nodules of a neoplastic origin can not be excluded. Consider short-term follow-up study to ensure resolution. 3. Bilateral hilar lymph nodes. 4. Right adrenal gland indeterminate nodule. This can be better assessed with a follow up MRI abdomen with and without contrast study. Laboratory Results WBC 16.34 10^3/uL (3.29-11.43) H 06/21/24 17:51 RBC 4.06 10^6/uL (3.85-5.65) 06/21/24 17:51 Hgb 11.60 g/dL (11.27-16.99) 06/21/24 17:51 Hct 38.3 % (36-47) 06/21/24 17:51 MCV 94.3 fl (85-98) 06/21/24 17:51 MCH 28.6 pg (27-33) 06/21/24 17:51 MCHC 30.3 g/dL (30-55) 06/21/24 17:51 RDW 15.4 % (12.1-15.1) H 06/21/24 17:51 Plt Count 271 10^3/cmm (157-399) 06/21/24 17:51 MPV 9.4 fL (7.4-10.4) 06/21/24 17:51 Neut % (Auto) 88.2 % 06/21/24 17:51 Lymph % (Auto) 7.2 % 06/21/24 17:51 [place] % (Auto) 3.4 % 06/21/24 17:51 Eos % (Auto) 0.6 % 06/21/24 17:51 Baso % (Auto) 0.2 % 06/21/24 17:51 Neut # (Auto) 14.44 10^3/uL (1.8-7.7) H 06/21/24 17:51 Lymph # (Auto) 1.2 10^3/uL (0.8-4.8) 06/21/24 17:51 [place] # (Auto) 0.6 10^3/uL (0.2-0.9) 06/21/24 17:51 Eos # (Auto) 0.1 10^3/uL (0.0-0.8) 06/21/24 17:51 Baso # (Auto) 0.0 10^3/uL (0.0-0.1) 06/21/24 17:51 Nucleated RBC % (auto) 0 % 06/21/24 17:51 Nucleated RBCs # 0.0 /100WBC 06/21/24 17:51 Specimen Type Arterial 06/21/24 16:52 Sample Site Brachial, left 06/21/24 16:52 ABG pH 7.46 (7.35-7.45) H 06/21/24 16:52 ABG pCO2 41.7 mmHg (35-45) 06/21/24 16:52 ABG pO2 59.0 mmHg (80.0-100.0) L 06/21/24 16:52 ABG PO2/FiO2 Ratio 210 06/21/24 16:52 ABG HCO3 29.8 mmol/L (22-26) H 06/21/24 16:52 ABG O2 Saturation 91.6 06/21/24 16:52 ABG Base Excess 5.5 mmol/L (-2.0-2.0) H 06/21/24 16:52 Vicente Test N/a 06/21/24 16:52 A-a O2 Gradient 11.3 mmHg (5-10) H 06/21/24 16:52 Hematocrit 39.1 % (37-47) 06/21/24 16:52 Hgb O2 Saturation 89.2 % (95-100) L 06/21/24 16:52 Carboxyhemoglobin 1.6 %THgb (0.4-20.1) 06/21/24 16:52 Methemoglobin 1.0 % (0.4-1.5) 06/21/24 16:52 Total Hemoglobin 12.8 g/dL (12-16) 06/21/24 16:52 Sodium 135.0 mmol/L (131-143) 06/21/24 16:52 Potassium 4.0 mmol/L (3.5-5.0) 06/21/24 16:52 Glucose 228.0 mg/dL (70-115) H 06/21/24 16:52 Ionized Calcium 1.2 mmol/L (1.1-1.4) 06/21/24 16:52 O2 Delivery Device Nc 06/21/24 16:52 O2 Liters/Min 2.0 % 06/21/24 16:52 FiO2 28.0 % 06/21/24 16:52 Oyster Farmer ID Amh 06/21/24 16:52 Sodium 135 mmol/L (136-145) L 06/21/24 17:51 Potassium 4.2 mmol/L (3.5-5.1) 06/21/24 17:51 Chloride 95 mmol/L (98-107) L 06/21/24 17:51 Carbon Dioxide 26 mmol/L (22-29) 06/21/24 17:51 Anion Gap 18.2 (5-19) 06/21/24 17:51 BUN 8 mg/dL (6-20) 06/21/24 17:51 Creatinine 0.5 mg/dL (0.5-0.9) 06/21/24 17:51 GFR Calculation 127.2 mL/min (90-130) 06/21/24 17:51 Glucose 215 mg/dL (65-115) H 06/21/24 17:51 Calculated Osmolality 285 mOsm/kg (285-295) 06/21/24 17:51 Lactic Acid 2.0 mmol/L (0.5-2.2) 06/21/24 17:51 Calcium 9.3 mg/dL (8.5-10.5) 06/21/24 17:51 Total Bilirubin 0.4 mg/dL (0.15-1.2) 06/21/24 17:51 AST 10 U/L (0-32) 06/21/24 17:51 ALT 13 U/L (0-33) 06/21/24 17:51 Alkaline Phosphatase 126 U/L (35-105) H 06/21/24 17:51 Total Protein 7.6 g/dL (6.6-8.7) 06/21/24 17:51 Albumin 4.0 g/dL (3.5-5.2) 06/21/24 17:51 Globulin 3.6 g/dL (1.3-4.6) 06/21/24 17:51 Procalcitonin 0.17 ng/mL (0-0.5) 06/21/24 17:51 Urine Color Yellow (Yellow) 06/21/24 17:40 Urine Appearance Clear (CLEAR) 06/21/24 17:40 Urine pH 6.0 (5-7) 06/21/24 17:40 Ur Specific [place] 1.023 (1.005-1.030) 06/21/24 17:40 Urine Protein 1+ (Negative) A 06/21/24 17:40 Urine Glucose (UA) Negative (Normal) 06/21/24 17:40 Urine Ketones Negative (Negative) 06/21/24 17:40 Urine Blood Negative (Negative) 06/21/24 17:40 Urine Nitrate Negative (Negative) 06/21/24 17:40 Urine Bilirubin Negative (Negative) 06/21/24 17:40 Urine Urobilinogen 1.0 mg/dL (Negative) 06/21/24 17:40 Ur Leukocyte Esterase Negative (Negative) 06/21/24 17:40 Urine RBC 0-2 /hpf (0-2) 06/21/24 17:40 Urine WBC 0-5 /hpf (0-5) 06/21/24 17:40 Ur Squamous Epith Cells 0-5 /hpf (0-5) 06/21/24 17:40 Amorphous Sediment Not Reportable 06/21/24 17:40 Urine Bacteria None seen /hpf (NONE) 06/21/24 17:40 Hyaline Casts 0.40 /lpf 06/21/24 17:40 Influenza A (PCR) Negative (Negative) 06/21/24 17:40 Influenza Type B (PCR) Negative (Negative) 06/21/24 17:40 RSV (PCR) Negative (Negative) 06/21/24 17:40 SARS-CoV-2 (PCR) Negative (Negative) 06/21/24 17:40 All radiology interpretation(s) finalized by discharge Discharge Plan Discharge Patient Disposition: Admitted As Inpatient Admit Provider: Wayne Gutierrez Clinical Impression: Pneumonia, Severe obstructive sleep apnea, Diabetes mellitus type 2, uncontrolled, Acute hypoxemic respiratory failure Condition: Stable Coding Level of Care Code ED Facing Baster for Nikolai Lentz
[2024-06-21 17:03] LABS: ABG PCO2 41.7 mmHg (35-45); ABG PH Result 7.46 (7.35-7.45); Alveolar-Arterial Oxygen Gradi 11.3 mmHg (5-10); Arterial Blood Gas Hematocrit 39.1 % (37-47); Base Excess ABG 5.5 mmol/L (-2.0-2.0); Blood Gas Operator Identificat AMH; Blood Gas Sample Site Brachial, left; Blood Gas Sample Type Arterial; Carboxyhemoglobin 1.6 %THgb (0.4-20.1); HCO3 ABG 29.8 mmol/L (22-26); HGB O2 Sat 89.2 % (95-100); Ionized Calcium Level - ABG 1.2 mmol/L (1.1-1.4); Oxygen Device NC; Oxygen Saturation ABG 91.6; PO2 FiO2 Ratio Arterial Blood 210; Total Hemoglobin 12.8 g/dL (12-16)
[2024-06-21 18:10] LABS: Bilirubin Urine Negative (Negative); Blood Urine Negative (Negative); Glucose Urine UA Negative (Normal); Ketones Urine Negative (Negative); Leukocyte Esterase Urine Negative (Negative); Nitrate Urine Negative (Negative); Protein Urine 1+ (Negative); Specific Gravity, Urine 1.023 (1.005-1.030); Urine Appearance Clear (CLEAR); Urine Color Yellow (Yellow)
--- NOTE | 2024-06-21 18:11 | CTR_ITS ---
PROCEDURE INFORMATION: Exam: CTA Chest With Contrast Exam date and time: 06/21/2024 7:07 PM Age: 59 years old Clinical indication: Shortness of breath; Additional info: SOB, hypoxemia TECHNIQUE: Imaging protocol: Computed tomographic angiography of the chest with contrast. Exam focused on the arteries. 3D rendering (Not supervised by radiologist): MIP and/or 3D reconstructed images were created by the technologist. Radiation optimization: All CT scans at this facility use at least one of these dose optimization techniques: automated exposure control; mA and/or kV adjustment per patient size (includes targeted exams where dose is matched to clinical indication); or iterative reconstruction. Contrast material: OMNIPAQUE 350; Contrast volume: 100 ml; Contrast route: INTRAVENOUS (IV); COMPARISON: CT angio chest PE protcl [id number] 07/09/2021 12:04 PM RADIATION DOSE METRICS: Total DLP (mGy-cm): 1042.09 FINDINGS: Pulmonary arteries: Normal. No pulmonary emboli. Aorta: Unremarkable. No aortic aneurysm. No aortic dissection. Lungs: Fluffy infiltrates in the right upper lobe related to infectious/inflammatory etiology although pulmonary nodules are not entirely excluded. Linear opacities in the lung base reflecting atelectasis and/or scarring. Pleural spaces: Unremarkable. No pneumothorax. No pleural effusion. Heart: Unremarkable. No cardiomegaly. No pericardial effusion. Lymph nodes: There are some prominent bilateral hilar lymph nodes . Adrenal glands: Indeterminate right adrenal gland nodule. Bones/joints: There is a prominent pyramidal thyroid lobe that extends just substernally. Soft tissues: Unremarkable. CT/CT angio chest PE protcl [id number] IMPRESSION: 1. No pulmonary embolism. 2. Fluffy infiltrates in the right lung may reflect pneumonia. Although underlying pulmonary nodules of a neoplastic origin can not be excluded. Consider short-term follow-up study to ensure resolution. 3. Bilateral hilar lymph nodes. 4. Right adrenal gland indeterminate nodule. This can be better assessed with a follow up MRI abdomen with and without contrast study.
[2024-06-21 18:16] LABS: Add Urine Microscopic? YES; Bacteria Urine None Seen /hpf; RBC Urine 0-2 /hpf (0-2); Squamous Epithelial Cell Urine 0-5 /hpf (0-5); WBC Urine 0-5 /hpf (0-5)
[2024-06-21 18:31] LABS: Basophils % 0.2 %; Eosinophils # 0.1 10^3/uL (0.0-0.8); Eosinophils % 0.6 %; Hematocrit 38.3 % (36-47); Lymphocytes # 1.2 10^3/uL (0.8-4.8); Lymphocytes % 7.2 %; Mean Corpuscular HGB Conc 30.3 g/dL (30-55); Mean Corpuscular Hemoglobin 28.6 pg (27-33); Mean Corpuscular Volume 94.3 fl (85-98); Mean Platelet Volume 9.4 fL (7.4-10.4); Monocytes # 0.6 10^3/uL (0.2-0.9); Monocytes % 3.4 %; Neutrophils # 14.44 10^3/uL (1.8-7.7); Neutrophils % 88.2 %; Nucleated Red Blood Cells % 0 %; Platelet Count 271 10^3/cmm (157-399); Red Blood Count 4.06 10^6/uL (3.85-5.65); Red Cell Distribution Width 15.4 % (12.1-15.1); White Blood Count 16.34 10^3/uL (3.29-11.43)
[2024-06-21 18:45] LABS: Influenza A NEGATIVE (Negative); Influenza B NEGATIVE (Negative); Respiratory Syncytial Virus Ce NEGATIVE (Negative); SARS-CoV-2 PCR NEGATIVE (Negative)
[2024-06-21 18:47] LABS: Alanine Aminotransferase 13 U/L (0-33); Alkaline Phosphatase 126 U/L (35-105); Anion Gap 18.2 (5-19); Aspartate Amino Transferase 10 U/L (0-32); Blood Urea Nitrogen 8 mg/dL (6-20); Calcium 9.3 mg/dL (8.5-10.5); Carbon Dioxide 26 mmol/L (22-29); Chloride 95 mmol/L (98-107); Creatinine Clr Calc Pharmacy 194.1748; Globulin 3.6 g/dL (1.3-4.6); Glomerular Filtration Rate 127.2 mL/min (90-130); Glucose 215 mg/dL (65-115); Osmolality Calculated 285 mOsm/kg (285-295); Potassium 4.2 mmol/L (3.5-5.1); Sodium 135 mmol/L (136-145); Total Bilirubin 0.4 mg/dL (0.15-1.2); Total Protein 7.6 g/dL (6.6-8.7)
[2024-06-21] MEDS: iohexol 350 mg/mL 500 mL Btl (per mL) IV (19:22)
[2024-06-21] MEDS: sodium chloride 0.9% 1,000 ML 999 ML IV ×2 (19:52→19:55)
[2024-06-21] MEDS: sodium chloride 0.9% 500 ML 999 ML IV (19:52)
[2024-06-21] MEDS: acetaminophen 1,000 MG/100 ML PIGGYBACK 400 MG IV (19:54)
[2024-06-21] MEDS: levofloxacin-dextrose 5 % 750 MG/150 ML PREMIX 100 MG IV (19:54)
--- NOTE | 2024-06-21 20:53 | PM.HP ---
Providers/Chief Complaint Primary Care Provider: Marlon Bowman MD Chief Complaint: sob History of Present Illness Camilla Tavares is a 59 year old female with history of morbid obesity, diabetes, hypertension, presented to the hospital for worsening of shortness of breath and fever. Patient is stating that she started getting sick in last 2 to 3 days, she has been exposed to people who were recently diagnosed with flu/viral illness. Her mother is sick as well. Patient started getting fever she is endorsing fever up to 104 at home associated with shortness of breath productive cough, green sputum production. She has not noticed any chest pain, nausea or vomiting. Secondary to worsening of shortness of breath she came to the hospital for further evaluation. She is requiring 2 L of oxygen. Does not use oxygen at baseline. She has been given septic bolus, x-ray consistent with pneumonia I have requested sputum culture, blood cultures requested already, Review of Systems Const: Reports: fever(s) and chills Eyes: Denies: change in vision ENMT: Reports: throat pain Card: Denies: chest pain Resp: Reports: dyspnea and productive cough Medications/Allergies Home Medications ?Medication ?Instructions ?Recorded ?Confirmed ?Last Taken ?Type acetaminophen 500 mg tablet 1,000 mg PO Q6H PRN Pain 07/09/21 06/21/24 Unknown History ferrous sulfate 325 mg (65 mg 325 mg PO BEDTIME 07/09/21 06/21/24 06/19/24 History iron) tablet (iron) ibuprofen 200 mg tablet 400 mg PO Q6H PRN Pain 03/03/22 06/21/24 Unknown History Nebulizer #1 ea 03/06/22 06/21/24 Unknown Rx hydrochlorothiazide 12.5 mg tablet 12.5 mg PO BEDTIME #30 tabs 10/16/23 06/21/24 06/19/24 Rx blood-glucose meter,continuous #1 ea 01/08/24 06/21/24 Unknown Rx (Dexcom G6 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) blood-glucose sensor (Dexcom G6 #3 ea 01/08/24 06/21/24 Unknown Rx Sensor device) blood-glucose transmitter (Dexcom #1 ea 01/08/24 06/21/24 Unknown Rx G6 Transmitter device) dulaglutide 0.75 mg/0.5 mL 0.75 mg (0.5 mL) SUBCUT Q7D #2 mL 01/08/24 06/21/24 06/19/24 Rx subcutaneous pen injector (Trulicity) ropinirole 1 mg tablet 1 mg PO DAILY #30 tabs 01/12/24 06/21/24 06/19/24 Rx fluoxetine 20 mg capsule See Rx Instructions .Route 03/21/24 06/21/24 06/19/24 Rx .COMPLEX #30 caps fluoxetine 40 mg capsule See Rx Instructions .Route 03/21/24 06/21/24 06/19/24 Rx .COMPLEX #30 caps sitagliptin phosphate 100 mg 100 mg PO QPM #30 tabs 03/21/24 06/21/24 06/19/24 Rx tablet (Januvia) lisinopril 10 mg tablet 10 mg PO QPM #90 tabs 05/23/24 06/21/24 06/19/24 Rx rosuvastatin 20 mg tablet 20 mg PO QPM #90 tabs 05/23/24 06/21/24 06/19/24 Rx metformin 500 mg tablet,extended 500 mg PO BID #60 tabs 06/13/24 06/21/24 06/19/24 Rx release 24 hr furosemide 40 mg tablet 40 mg PO DAILY PRN swelling 06/21/24 06/21/24 Unknown History gabapentin 100 mg capsule 100 mg PO TID 06/21/24 06/21/24 06/19/24 History insulin glargine 100 unit/mL (3 100 unit SUBCUT QPM 06/21/24 06/21/24 06/19/24 History mL) subcutaneous pen (Lantus Solostar U-100 Insulin) potassium chloride 10 mEq See Rx Instructions .Route .COMPLEX 06/21/24 06/21/24 Unknown History tablet,extended release Allergies Allergy/AdvReac Type Severity Reaction Status Date / Time No Known Allergies Allergy Verified 06/21/24 16:11 PFSH Acute PFSH: Medical History Diabetes Family history of thyroid disease Family history of [place] (myocardial infarction) Surgical History H/O: hysterectomy Cancer - Removal of both ovaries and cervix No pertinent past surgical history Family History Sister Cancer Nasopharyngeal cancer, junctional tumor Other Diabetes Family history of premature coronary artery disease No pertinent family history Social History Smoking and tobacco/nicotine status: never used tobacco/nicotine Alcohol intake: never Substance/Drug Use: never Household members: family Housing: House Vitals/I&O/Wt Last Vital Signs Temp 101.8 F H 06/21/24 20:11 Pulse 97 06/21/24 20:11 Resp 23 H 06/21/24 20:11 BP 152/75 06/21/24 20:11 Pulse Ox 98 06/21/24 20:11 O2 Del Method Nasal Cannula 06/21/24 20:11 O2 Flow Rate 2 06/21/24 20:11 06/21/24 06/21/24 06/21/24 06:59 14:59 22:59 Intake Total 100 / 100 Balance 100 / 100 Weight last 48 hrs Weight 158.757 kg Physical Exam Narrative: Patient laying supine Wheezing present on clinical exam GCS 15 Nonfocal neuroexam No active chest pain S1, S2 Hemodynamically stable No active sign of fluid overload Abdomen distended nontender AOx4 Lower extremity no edema Data 06/21/24 17:51 06/21/24 17:51 Micro: Microbiology 06/21/24 18:01 Blood Culture - Preliminary Blood SPECIMEN COLLECTED 06/21/24 17:51 Blood Culture - Preliminary Blood SPECIMEN COLLECTED A&P Assessment and plan (1) Diabetes mellitus type 2, uncontrolled: (2) Restless leg syndrome: (3) Asthma: (4) Hypoxemia: (5) Severe obstructive sleep apnea: (6) Malaise and fatigue: (7) Sepsis: (8) Pneumonia: Plan Sepsis related to right lung pneumonia Start antibiotics Patient has already received septic bolus Check nares MRSA Continue azithromycin and ceftriaxone for now DuoNeb treatment Start IV steroids for wheezing Mild asthma exacerbation. No active respiratory distress Hypoxia: Requiring 2 L IV steroids to be used for now until wheezing improves Patient has not used albuterol at home because it makes her sick Type II diabetic: Continue sliding scale with insulin Consistent carb diet Hypertension: Continue antihypertensive regimen Hydrochlorothiazide, lisinopril, Full code Consistent carb diet DVT prophylaxis: Heparin PDMP PDMP Reviewed: Not Reviewed Attestations Medical Necessity Statement*: Anticipating more than 2 midnights in the hospital manage of pneumonia, sepsis Coding Level of Care Code Acute Code for Chg Fwd Diagnoses Diabetes mellitus type 2, uncontrolled Restless leg syndrome G25.81 Asthma J45.909 Hypoxemia R09.02 Severe obstructive sleep apnea G47.33 Malaise and fatigue R53.81; R53.83 Sepsis A41.9 Pneumonia J18.9
[2024-06-21 21:22] LABS: Procalcitonin 0.17 ng/mL (0-0.5)
[2024-06-22] VITALS (9 sets, daily range): BP systolic 122–165; BP diastolic 73–98; PULSE 70–90; RESP 16–18; TEMP 36.2–37.4; O2SAT 90–96
[2024-06-22] MEDS: methylPREDNISolone sod succ 40 mg/mL INJ 30 MG IVP ×3 (00:02→22:52)
[2024-06-22] MEDS: ropinirole 1 mg Tablet PO ×2 (00:02→21:08)
[2024-06-22 00:11] LABS: Glucose Point of Care 244 mg/dL (70-110)
[2024-06-22] MEDS: insulin lispro 100 unit/1 mL SUBCUT ×5 (00:17→21:08)
[2024-06-22] MEDS: ipratropium-albuterol 3 mL Neb INHALATION (01:25)
[2024-06-22 05:43] LABS: Basophils % 0.2 %; Eosinophils % 0.1 %; Hematocrit 33.9 % (36-47); Lymphocytes % 5.5 %; Mean Corpuscular Hemoglobin 29.2 pg (27-33); Mean Corpuscular Volume 94.4 fl (85-98); Mean Platelet Volume 9.3 fL (7.4-10.4); Monocytes # 0.6 10^3/uL (0.2-0.9); Monocytes % 3.5 %; Neutrophils # 15.84 10^3/uL (1.8-7.7); Neutrophils % 89.8 %; Nucleated Red Blood Cells % 0 %; Platelet Count 244 10^3/cmm (157-399); Red Blood Count 3.59 10^6/uL (3.85-5.65); Red Cell Distribution Width 15.5 % (12.1-15.1); White Blood Count 17.62 10^3/uL (3.29-11.43)
[2024-06-22 06:03] LABS: Anion Gap 15.2 (5-19); Blood Urea Nitrogen 8 mg/dL (6-20); C Reactive Protein 170.2 mg/L (0.0-4.9); Calcium 8.7 mg/dL (8.5-10.5); Carbon Dioxide 26 mmol/L (22-29); Chloride 96 mmol/L (98-107); Creatinine Clr Calc Pharmacy 194.1748; Glomerular Filtration Rate 127.2 mL/min (90-130); Glucose 241 mg/dL (65-115); Magnesium 1.8 mg/dL (1.7-2.3); Osmolality Calculated 282 mOsm/kg (285-295); Potassium 4.2 mmol/L (3.5-5.1); Sodium 133 mmol/L (136-145)
[2024-06-22 06:28] LABS: Glucose Point of Care 293 mg/dL (70-110)
[2024-06-22] MEDS: acetaminophen 500 mg Tablet PO ×2 (08:05→19:15)
[2024-06-22] MEDS: cefTRIAXone 1,000 MG in sodium chloride 0.9% (plus) 50 ML 100 MG IV (08:36)
[2024-06-22] MEDS: azithromycin 250 mg Tablet 500 MG PO (08:44)
[2024-06-22] MEDS: gabapentin 100 mg Capsule PO ×3 (08:46→21:08)
[2024-06-22] MEDS: heparin 5,000 unit/mL INJ 1 mL 5000 UNIT SUBCUT ×2 (08:53→21:08)
--- NOTE | 2024-06-22 09:42 | PC.CHAP ---
Pastoral Care Encounter/Spiritual Assessment Type of Contact [] Declined conversion developer visit [] Patient/Family/Request visit [] Outpatient visit [] Follow-up visit [] Physician referral [] Code/Alert [x] Routine visit [] Staff referral [] Actively dying [] Patient sleeping [] Family support [] [] Out of room [] Palliative care [] [] Receiving care in room [] Pre-surgical visit [] Trauma [] Long length of stay [] ICU visit [] Other: Relational/Emotional Strength [x] Patient feels connected with others/family/visitors/staff [] Distress [] Loneliness/isolation [] Abandonment Spirituality of Patient [x] Person of Dior [] Attends Mu-Ism of their Dior [x] Believes in Prayer [] Reads Bible or Jew materials [] There are Spiritual issues to be addressed Programming Manager Interventions [x] Prayer [x] Active listening [x] Non-anxious presence [x] Spiritual/emotional support [] Crisis/trauma care [] Spiritual counseling [] Bereavement support [] Provided bereavement packet [] Provided Bible/devotional materials [] Provided toy/stuffed animal, coloring book to patient or family member [] Provided Communion [] Anointing/[place] [] Salvation [x] Completed spiritual assessment [] Other: Impact on Illness or Injury [] Angry [] Fearful [] Anxious [] Often cries [] Exhaustion [] Unable to work [] Unable to attend jain [] Unable to walk/stand [] Unable to read [] Unable to drive [] Unable to eat/drink [] Unable to sleep [] Unable to be with family [] Patient intubated [] Other: Summary Time spent with patient 5 min
[2024-06-22 10:51] LABS: Glucose Point of Care 273 mg/dL (70-110)
[2024-06-22 16:49] LABS: Glucose Point of Care 303 mg/dL (70-110)
[2024-06-22] MEDS: lisinopril 10 mg Tablet PO (16:57)
[2024-06-22] MEDS: insulin glargine 100 units/1 mL 80 UNIT SUBCUT (16:57)
--- NOTE | 2024-06-22 17:29 | P.PN_ITS ---
Subjective 2 Subjective: No acute interim events. Tmax 101.8 Fahrenheit. Medications: Reviewed: Yes Vitals/I&O/Wt Last Vital Signs Temp 99.3 F 06/22/24 15:31 Pulse 75 06/22/24 15:31 Resp 16 06/22/24 15:31 BP 165/80 06/22/24 15:31 Pulse Ox 93 06/22/24 15:31 O2 Del Method Nasal Cannula 06/22/24 15:31 O2 Flow Rate 1 06/22/24 11:17 06/22/24 06/22/24 06/22/24 06:59 14:59 22:59 Intake Total 2650 / 2750 410 / 410 Balance 2650 / 2750 410 / 410 Weight last 48 hrs Weight 158.757 kg Weight 158.757 kg Weight 158.757 kg Physical Exam 2 Narrative: General: No acute distress, AO x3 HEENT: PERRLA, pupils bilaterally equal and reactive, pallors not present Chest: Normal vesicular breath sounds, no added sounds, equal good air entry bilaterally CVS: S1-S2 regular, no murmurs, no tachycardia, no gallops, no rubs Abdomen: Soft, nontender, no organomegaly, bowel sounds present Neuro: No focal deficits, no facial deformity, AO x3, power 5/5 in all limbs Data 06/22/24 04:21 06/22/24 04:21 Micro: Microbiology 06/21/24 18:01 Blood Culture - Preliminary Blood SPECIMEN COLLECTED 06/21/24 17:51 Blood Culture - Preliminary Blood SPECIMEN COLLECTED A&P Assessment and plan (1) Diabetes mellitus type 2, uncontrolled: (2) Restless leg syndrome: (3) Asthma: (4) Hypoxemia: (5) Severe obstructive sleep apnea: (6) Malaise and fatigue: (7) Sepsis: (8) Pneumonia: Plan Sepsis related to right lung pneumonia Start antibiotics Patient has already received septic bolus Check nares MRSA Continue azithromycin and ceftriaxone for now DuoNeb treatment Start IV steroids for wheezing Mild asthma exacerbation. No active respiratory distress Hypoxia: Requiring 2 L IV steroids to be used for now until wheezing improves Patient has not used albuterol at home because it makes her sick Type II diabetic: Continue sliding scale with insulin Consistent carb diet Hypertension: Continue antihypertensive regimen Hydrochlorothiazide, lisinopril, Full code Consistent carb diet DVT prophylaxis: Heparin June 22, 2024 Continue IV antibiotics including ceftriaxone and azithromycin. MRSA nasal screen is negative.Continue scheduled nebulization and IV steroids. PDMP PDMP Reviewed: Not Reviewed Attestations 2 Medical Necessity Statement*: Ongoing need for IV antibiotics, IV steroids Coding Level of Care Code Acute Code for Chg Fwd Diagnoses Diabetes mellitus type 2, uncontrolled Restless leg syndrome G25.81 Asthma J45.909 Hypoxemia R09.02 Severe obstructive sleep apnea G47.33 Malaise and fatigue R53.81; R53.83 Sepsis A41.9 Pneumonia J18.9
[2024-06-22] MEDS: benzonatate 100 mg Capsule 200 MG PO (19:16)
[2024-06-22 20:26] LABS: Glucose Point of Care 363 mg/dL (70-110)
[2024-06-22] MEDS: hydroCHLOROthiazide 25 mg Tablet 12.5 MG PO (21:09)
[2024-06-23] VITALS (9 sets, daily range): BP systolic 103–163; BP diastolic 53–91; PULSE 55–73; RESP 16–18; TEMP 36.4–36.7; O2SAT 90–93
[2024-06-23 06:09] LABS: Basophils % 0.1 %; Eosinophils % 0.1 %; Hematocrit 33.1 % (36-47); Lymphocytes # 1.3 10^3/uL (0.8-4.8); Lymphocytes % 8.9 %; Mean Corpuscular HGB Conc 30.5 g/dL (30-55); Mean Corpuscular Hemoglobin 28.9 pg (27-33); Mean Corpuscular Volume 94.6 fl (85-98); Mean Platelet Volume 9.9 fL (7.4-10.4); Monocytes # 0.2 10^3/uL (0.2-0.9); Monocytes % 1.7 %; Neutrophils # 12.81 10^3/uL (1.8-7.7); Neutrophils % 88.5 %; Nucleated Red Blood Cells % 0 %; Platelet Count 273 10^3/cmm (157-399); Red Cell Distribution Width 15.1 % (12.1-15.1); White Blood Count 14.47 10^3/uL (3.29-11.43)
[2024-06-23 06:40] LABS: Alanine Aminotransferase 13 U/L (0-33); Albumin Level 3.7 g/dL (3.5-5.2); Alkaline Phosphatase 134 U/L (35-105); Anion Gap 15.6 (5-19); Aspartate Amino Transferase 10 U/L (0-32); Blood Urea Nitrogen 13 mg/dL (6-20); Calcium 9.2 mg/dL (8.5-10.5); Carbon Dioxide 29 mmol/L (22-29); Chloride 99 mmol/L (98-107); Creatinine Clr Calc Pharmacy 194.1748; Globulin 3.3 g/dL (1.3-4.6); Glomerular Filtration Rate 127.2 mL/min (90-130); Glucose 256 mg/dL (65-115); Osmolality Calculated 297 mOsm/kg (285-295); Potassium 4.6 mmol/L (3.5-5.1); Sodium 139 mmol/L (136-145); Total Bilirubin 0.2 mg/dL (0.15-1.2)
[2024-06-23 06:56] LABS: Glucose Point of Care 301 mg/dL (70-110)
[2024-06-23] MEDS: azithromycin 250 mg Tablet 500 MG PO (08:41)
[2024-06-23] MEDS: sennosides-docusate Tablet 1 TAB PO (08:42)
[2024-06-23] MEDS: gabapentin 100 mg Capsule PO ×3 (08:43→20:34)
[2024-06-23] MEDS: insulin lispro 100 unit/1 mL SUBCUT ×4 (08:43→20:35)
[2024-06-23] MEDS: heparin 5,000 unit/mL INJ 1 mL 5000 UNIT SUBCUT ×2 (08:44→20:35)
[2024-06-23] MEDS: cefTRIAXone 1,000 MG in sodium chloride 0.9% (plus) 50 ML 100 MG IV (08:45)
[2024-06-23 10:37] LABS: Glucose Point of Care 328 mg/dL (70-110)
[2024-06-23] MEDS: methylPREDNISolone sod succ 40 mg/mL INJ 30 MG IVP (12:02)
[2024-06-23 12:20] LABS: MRSA PCR OZH (swab) NOT DETECTED (Not Detecte)
--- NOTE | 2024-06-23 16:01 | P.PN_ITS ---
Subjective 2 Subjective: symptomatically better today, off 02, wheezing is better Medications: Reviewed: Yes Vitals/I&O/Wt Last Vital Signs Temp 97.7 F 06/23/24 15:39 Pulse 66 06/23/24 15:39 Resp 17 06/23/24 15:39 BP 163/91 06/23/24 15:39 Pulse Ox 92 06/23/24 15:39 O2 Del Method Room Air 06/23/24 15:39 O2 Flow Rate 1 06/23/24 09:41 06/23/24 06/23/24 06/23/24 06:59 14:59 22:59 Intake Total 240 / 1390 340 / 340 Balance 240 / 1390 340 / 340 Weight last 48 hrs Weight 158.757 kg Weight 158.757 kg Physical Exam 2 Narrative: General: No acute distress, AO x3 HEENT: PERRLA, pupils bilaterally equal and reactive, pallors not present Chest: Normal vesicular breath sounds, no added sounds, equal good air entry bilaterally CVS: S1-S2 regular, no murmurs, no tachycardia, no gallops, no rubs Abdomen: Soft, nontender, no organomegaly, bowel sounds present Neuro: No focal deficits, no facial deformity, AO x3, power 5/5 in all limbs Data 06/23/24 04:32 06/23/24 04:32 Micro: Microbiology 06/22/24 11:07 Gram Stain - Final Sputum - Expectorated Sputum Sputum Culture - Preliminary 06/21/24 18:01 Blood Culture - Preliminary Blood NEGATIVE TO DATE 06/21/24 17:51 Blood Culture - Preliminary Blood NEGATIVE TO DATE A&P Assessment and plan (1) Diabetes mellitus type 2, uncontrolled: (2) Restless leg syndrome: (3) Asthma: (4) Hypoxemia: (5) Severe obstructive sleep apnea: (6) Malaise and fatigue: (7) Sepsis: (8) Pneumonia: Plan Sepsis related to right lung pneumonia Start antibiotics Patient has already received septic bolus Check nares MRSA Continue azithromycin and ceftriaxone for now DuoNeb treatment Start IV steroids for wheezing Mild asthma exacerbation. No active respiratory distress Hypoxia: Requiring 2 L IV steroids to be used for now until wheezing improves Patient has not used albuterol at home because it makes her sick Type II diabetic: Continue sliding scale with insulin Consistent carb diet Hypertension: Continue antihypertensive regimen Hydrochlorothiazide, lisinopril, Full code Consistent carb diet DVT prophylaxis: Heparin June 22, 2024 Continue IV antibiotics including ceftriaxone and azithromycin. MRSA nasal screen is negative.Continue scheduled nebulization and IV steroids. June 22, 2024 Symptomatically better today, of 02, still with mild wheezing over RLL, but imporved over previous day. Continue scheduled nebulization , reduce iv steroids--> transition to po prednisone. T max 99.7 over last 24 hrs, if continues to improve and remains afberile, plan for d/c over next 24 hrs PDMP PDMP Reviewed: Not Reviewed Attestations 2 Medical Necessity Statement*: iv abx, transition steroids Coding Level of Care Code Acute Code for Chg Fwd Diagnoses Diabetes mellitus type 2, uncontrolled Restless leg syndrome G25.81 Asthma J45.909 Hypoxemia R09.02 Severe obstructive sleep apnea G47.33 Malaise and fatigue R53.81; R53.83 Sepsis A41.9 Pneumonia J18.9
[2024-06-23 16:53] LABS: Glucose Point of Care 275 mg/dL (70-110)
[2024-06-23] MEDS: insulin glargine 100 units/1 mL 80 UNIT SUBCUT (17:02)
[2024-06-23] MEDS: lisinopril 10 mg Tablet PO (17:05)
[2024-06-23 20:29] LABS: Glucose Point of Care 294 mg/dL (70-110)
[2024-06-23] MEDS: ropinirole 1 mg Tablet PO (20:34)
[2024-06-23] MEDS: acetaminophen 500 mg Tablet PO (20:34)
[2024-06-23] MEDS: hydroCHLOROthiazide 25 mg Tablet 12.5 MG PO (20:34)
[2024-06-23] MEDS: benzonatate 100 mg Capsule 200 MG PO (20:35)
[2024-06-24 03:32] VITALS: BP 132/66; PULSE 53; RESP 17; TEMP 36.4
[2024-06-24 05:53] LABS: Basophils % 0.2 %; Eosinophils % 0.1 %; Hematocrit 34.4 % (36-47); Lymphocytes # 2.4 10^3/uL (0.8-4.8); Lymphocytes % 19.5 %; Mean Corpuscular HGB Conc 29.7 g/dL (30-55); Mean Corpuscular Hemoglobin 28.3 pg (27-33); Mean Corpuscular Volume 95.3 fl (85-98); Mean Platelet Volume 9.6 fL (7.4-10.4); Monocytes # 0.6 10^3/uL (0.2-0.9); Monocytes % 4.8 %; Neutrophils # 9.16 10^3/uL (1.8-7.7); Neutrophils % 74.9 %; Nucleated Red Blood Cells % 0 %; Platelet Count 306 10^3/cmm (157-399); Red Blood Count 3.61 10^6/uL (3.85-5.65); Red Cell Distribution Width 15.1 % (12.1-15.1); White Blood Count 12.22 10^3/uL (3.29-11.43)
[2024-06-24 06:04] LABS: Alanine Aminotransferase 17 U/L (0-33); Albumin Level 3.6 g/dL (3.5-5.2); Alkaline Phosphatase 106 U/L (35-105); Anion Gap 10.7 (5-19); Aspartate Amino Transferase 18 U/L (0-32); Blood Urea Nitrogen 16 mg/dL (6-20); Calcium 9.3 mg/dL (8.5-10.5); Carbon Dioxide 34 mmol/L (22-29); Chloride 97 mmol/L (98-107); Creatinine Clr Calc Pharmacy 161.8123; Globulin 3.1 g/dL (1.3-4.6); Glucose 137 mg/dL (65-115); Osmolality Calculated 289 mOsm/kg (285-295); Potassium 3.7 mmol/L (3.5-5.1); Sodium 138 mmol/L (136-145); Total Bilirubin 0.2 mg/dL (0.15-1.2); Total Protein 6.7 g/dL (6.6-8.7)
[2024-06-24 06:40] LABS: Glucose Point of Care 124 mg/dL (70-110)
[2024-06-24 08:00] VITALS: BP 149/89; PULSE 60; RESP 17; TEMP 35.8; O2SAT 93
[2024-06-24] MEDS: gabapentin 100 mg Capsule PO (09:00)
[2024-06-24] MEDS: azithromycin 250 mg Tablet 500 MG PO (09:00)
[2024-06-24] MEDS: acetaminophen 500 mg Tablet PO (09:00)
[2024-06-24] MEDS: predniSONE 20 mg Tablet 40 MG PO (09:00)
[2024-06-24] MEDS: cefTRIAXone 1,000 MG in sodium chloride 0.9% (plus) 50 ML 100 MG IV (09:02)
[2024-06-24 11:28] LABS: Glucose Point of Care 162 mg/dL (70-110)
[2024-06-24 11:34] VITALS: BP 169/77; PULSE 53; RESP 18; TEMP 36.8; O2SAT 94
[2024-06-24] MEDS: insulin lispro 100 unit/1 mL SUBCUT (13:06)
--- NOTE | 2024-06-24 14:05 | PM.DCS ---
Discharge Providers Date of Admission: 06/21/24 20:18 Date of Discharge: June 24, 2024 Attending Provider at Admission: Wayne Gutierrez MD Attending Provider at Discharge: Paloma Akhtar MD Primary Care Provider: Marlon Bowman MD Diagnoses at Discharge Discharge Diagnosis (1) Diabetes mellitus type 2, uncontrolled: Status: Acute (2) Restless leg syndrome: Status: Acute (3) Asthma: Status: Acute (4) Hypoxemia: Status: Acute (5) Severe obstructive sleep apnea: Status: Acute (6) Malaise and fatigue: Status: Acute (7) Sepsis: Status: Acute (8) Pneumonia: Status: Acute Reason for Visit Reason for Visit: sob Hospital Course Hospital Course Camilla Tavares is a 59 year old female with history of morbid obesity, diabetes, hypertension, presented to the hospital for worsening of shortness of breath and fever.Patient started getting fever she is endorsing fever up to 104 at home associated with shortness of breath productive cough, green sputum production. She was requiring 2 L of oxygen. Does not use oxygen at baseline. She was diagnosed with community-acquired pneumonia. Chest x-ray and CTA of the chest showed right lung pneumonia. She was started treatment with ceftriaxone and azithromycin. Additionally patient was suffering from an asthma exacerbation related to the acute infection. She received treatment with scheduled nebulization and also with IV steroids, which has been transitioned to oral prednisone. With the above treatment patient improved. She has now been afebrile for over 48 hours. White blood cell count is trending down to 12,000 from 16,000 upon admission. She is clinically feeling better. Patient is being discharged today in an improved state with transition to oral antibiotics, short course of oral steroids of 5 days for asthma exacerbation, refills provided for Spiriva and Symbicort inhalers for home use. She was able to be weaned down to room air by the time of discharge. Physical Exam Narrative: General: No acute distress, AO x3 HEENT: PERRLA, pupils bilaterally equal and reactive, pallors not present Chest: Normal vesicular breath sounds, no added sounds, equal good air entry bilaterally CVS: S1-S2 regular, no murmurs, no tachycardia, no gallops, no rubs Abdomen: Soft, nontender, no organomegaly, bowel sounds present Neuro: No focal deficits, no facial deformity, AO x3, power 5/5 in all limbs Discharge Data Studies Completed and Pending Completed Studies During Hospitalization Category Date Time Status CTA chest [CT angio chest PE protcl [id number]] Stat Cat Scan 06/21/24 18:11 Completed XR chest 1V portable [id number] Stat Exams 06/21/24 16:30 Completed Pending at discharge Category Date Time Status Blood Culture Stat Lab 06/21/24 18:01 Results Radiology Impressions Chest X-Ray 06/21/24 16:30 IMPRESSION: As above. Chest CTA 06/21/24 18:11 IMPRESSION: 1. No pulmonary embolism. 2. Fluffy infiltrates in the right lung may reflect pneumonia. Although underlying pulmonary nodules of a neoplastic origin can not be excluded. Consider short-term follow-up study to ensure resolution. 3. Bilateral hilar lymph nodes. 4. Right adrenal gland indeterminate nodule. This can be better assessed with a follow up MRI abdomen with and without contrast study. Laboratory Results WBC 12.22 10^3/uL (3.29-11.43) H 06/24/24 04:18 RBC 3.61 10^6/uL (3.85-5.65) L 06/24/24 04:18 Hgb 10.20 g/dL (11.27-16.99) L 06/24/24 04:18 Hct 34.4 % (36-47) L 06/24/24 04:18 MCV 95.3 fl (85-98) 06/24/24 04:18 MCH 28.3 pg (27-33) 06/24/24 04:18 MCHC 29.7 g/dL (30-55) L 06/24/24 04:18 RDW 15.1 % (12.1-15.1) 06/24/24 04:18 Plt Count 306 10^3/cmm (157-399) 06/24/24 04:18 MPV 9.6 fL (7.4-10.4) 06/24/24 04:18 Neut % (Auto) 74.9 % 06/24/24 04:18 Lymph % (Auto) 19.5 % 06/24/24 04:18 [place] % (Auto) 4.8 % 06/24/24 04:18 Eos % (Auto) 0.1 % 06/24/24 04:18 Baso % (Auto) 0.2 % 06/24/24 04:18 Neut # (Auto) 9.16 10^3/uL (1.8-7.7) H 06/24/24 04:18 Lymph # (Auto) 2.4 10^3/uL (0.8-4.8) 06/24/24 04:18 [place] # (Auto) 0.6 10^3/uL (0.2-0.9) 06/24/24 04:18 Eos # (Auto) 0.0 10^3/uL (0.0-0.8) 06/24/24 04:18 Baso # (Auto) 0.0 10^3/uL (0.0-0.1) 06/24/24 04:18 Nucleated RBC % (auto) 0 % 06/24/24 04:18 Nucleated RBCs # 0.0 /100WBC 06/24/24 04:18 Specimen Type Arterial 06/21/24 16:52 Sample Site Brachial, left 06/21/24 16:52 ABG pH 7.46 (7.35-7.45) H 06/21/24 16:52 ABG pCO2 41.7 mmHg (35-45) 06/21/24 16:52 ABG pO2 59.0 mmHg (80.0-100.0) L 06/21/24 16:52 ABG PO2/FiO2 Ratio 210 06/21/24 16:52 ABG HCO3 29.8 mmol/L (22-26) H 06/21/24 16:52 ABG O2 Saturation 91.6 06/21/24 16:52 ABG Base Excess 5.5 mmol/L (-2.0-2.0) H 06/21/24 16:52 Vicente Test N/a 06/21/24 16:52 A-a O2 Gradient 11.3 mmHg (5-10) H 06/21/24 16:52 Hematocrit 39.1 % (37-47) 06/21/24 16:52 Hgb O2 Saturation 89.2 % (95-100) L 06/21/24 16:52 Carboxyhemoglobin 1.6 %THgb (0.4-20.1) 06/21/24 16:52 Methemoglobin 1.0 % (0.4-1.5) 06/21/24 16:52 Total Hemoglobin 12.8 g/dL (12-16) 06/21/24 16:52 Sodium 135.0 mmol/L (131-143) 06/21/24 16:52 Potassium 4.0 mmol/L (3.5-5.0) 06/21/24 16:52 Glucose 228.0 mg/dL (70-115) H 06/21/24 16:52 Ionized Calcium 1.2 mmol/L (1.1-1.4) 06/21/24 16:52 O2 Delivery Device Nc 06/21/24 16:52 O2 Liters/Min 2.0 % 06/21/24 16:52 FiO2 28.0 % 06/21/24 16:52 Server Security Administrator ID Amh 06/21/24 16:52 Sodium 138 mmol/L (136-145) 06/24/24 04:18 Potassium 3.7 mmol/L (3.5-5.1) 06/24/24 04:18 Chloride 97 mmol/L (98-107) L 06/24/24 04:18 Carbon Dioxide 34 mmol/L (22-29) H 06/24/24 04:18 Anion Gap 10.7 (5-19) 06/24/24 04:18 BUN 16 mg/dL (6-20) 06/24/24 04:18 Creatinine 0.6 mg/dL (0.5-0.9) 06/24/24 04:18 GFR Calculation 103.0 mL/min (90-130) 06/24/24 04:18 Glucose 137 mg/dL (65-115) H 06/24/24 04:18 POC Glucose 162 mg/dL (70-110) H 06/24/24 10:51 Calculated Osmolality 289 mOsm/kg (285-295) 06/24/24 04:18 Lactic Acid 2.0 mmol/L (0.5-2.2) 06/21/24 17:51 Calcium 9.3 mg/dL (8.5-10.5) 06/24/24 04:18 Magnesium 1.8 mg/dL (1.7-2.3) 06/22/24 04:21 Total Bilirubin 0.2 mg/dL (0.15-1.2) 06/24/24 04:18 AST 18 U/L (0-32) 06/24/24 04:18 ALT 17 U/L (0-33) 06/24/24 04:18 Alkaline Phosphatase 106 U/L (35-105) H 06/24/24 04:18 C-Reactive Protein 170.2 mg/L (0.0-4.9) H 06/22/24 04:21 Total Protein 6.7 g/dL (6.6-8.7) 06/24/24 04:18 Albumin 3.6 g/dL (3.5-5.2) 06/24/24 04:18 Globulin 3.1 g/dL (1.3-4.6) 06/24/24 04:18 Procalcitonin 0.17 ng/mL (0-0.5) 06/21/24 17:51 Urine Color Yellow (Yellow) 06/21/24 17:40 Urine Appearance Clear (CLEAR) 06/21/24 17:40 Urine pH 6.0 (5-7) 06/21/24 17:40 Ur Specific [place] 1.023 (1.005-1.030) 06/21/24 17:40 Urine Protein 1+ (Negative) A 06/21/24 17:40 Urine Glucose (UA) Negative (Normal) 06/21/24 17:40 Urine Ketones Negative (Negative) 06/21/24 17:40 Urine Blood Negative (Negative) 06/21/24 17:40 Urine Nitrate Negative (Negative) 06/21/24 17:40 Urine Bilirubin Negative (Negative) 06/21/24 17:40 Urine Urobilinogen 1.0 mg/dL (Negative) 06/21/24 17:40 Ur Leukocyte Esterase Negative (Negative) 06/21/24 17:40 Urine RBC 0-2 /hpf (0-2) 06/21/24 17:40 Urine WBC 0-5 /hpf (0-5) 06/21/24 17:40 Ur Squamous Epith Cells 0-5 /hpf (0-5) 06/21/24 17:40 Amorphous Sediment Not Reportable 06/21/24 17:40 Urine Bacteria None seen /hpf (NONE) 06/21/24 17:40 Hyaline Casts 0.40 /lpf 06/21/24 17:40 Nasal MRSA (PCR) Not detected (Not Detecte) 06/23/24 10:58 Influenza A (PCR) Negative (Negative) 06/21/24 17:40 Influenza Type B (PCR) Negative (Negative) 06/21/24 17:40 RSV (PCR) Negative (Negative) 06/21/24 17:40 SARS-CoV-2 (PCR) Negative (Negative) 06/21/24 17:40 Vitals Last Vital Signs Temp 98.2 F 06/24/24 11:34 Pulse 53 L 06/24/24 11:34 Resp 18 06/24/24 11:34 BP 169/77 06/24/24 11:34 Pulse Ox 94 06/24/24 11:34 O2 Del Method Room Air 06/24/24 11:34 O2 Flow Rate 1 06/23/24 09:41 Discharge Plan Discharge Patient Disposition: Home Condition: Stable Prescriptions: New azithromycin 250 mg Tablet 500 mg PO DAILY 2 Days Qty: 2 0RF prednisone 20 mg Tablet 40 mg PO DAILY 5 Days Qty: 5 0RF benzonatate 100 mg Capsule 200 mg PO Q6H PRN (Reason: Cough) 7 Days Qty: 28 0RF amoxicillin-pot clavulanate 875-125 mg tablet 1 tab PO BID 3 Days Qty: 6 0RF budesonide-formoterol [Symbicort] 80-4.5 mcg/actuation HFA aerosol inhaler 2 inh inhalation BID Qty: 10.2 2RF Spiriva Respimat 1.25 mcg/actuation mist 2 inh inhalation DAILY Qty: 4 1RF Continued (DME) Nebulizer See Rx Instructions .Route .MEDSUPPLY Qty: 1 0RF Rx Instructions: As directed - Use every 6 hours as needed for dyspnea ropinirole 1 mg tablet 1 mg PO DAILY Qty: 30 3RF Trulicity 0.75 mg/0.5 mL pen injector 0.75 mg SUBCUT Q7D Qty: 2 6RF Rx Instructions: Thursday (DME) Dexcom G6 Sensor Device See Rx Instructions .ROUTE .MEDSUPPLY Qty: 3 6RF Rx Instructions: As directed (DME) Dexcom G6 Perch Machine Inspector Misc See Rx Instructions .ROUTE .MEDSUPPLY Qty: 1 0RF Rx Instructions: As directed (DME) Dexcom G6 Transmitter Device See Rx Instructions .ROUTE .MEDSUPPLY Qty: 1 2RF Rx Instructions: As directed hydrochlorothiazide 12.5 mg tablet 12.5 mg PO BEDTIME Qty: 30 6RF Januvia 100 mg tablet 100 mg PO QPM Qty: 30 6RF fluoxetine 40 mg capsule See Rx Instructions .ROUTE .COMPLEX Qty: 30 6RF Dose Instruction: take ONE capsule BY MOUTH EVERY DAY (take with 20mg) Rx Instructions: TAKE ONE CAPSULE BY MOUTH EVERY DAY ALONG WITH 20MG TO=60MG TOTAL. fluoxetine 20 mg capsule See Rx Instructions .ROUTE .COMPLEX Qty: 30 6RF Dose Instruction: TAKE 1 CAPSULE BY MOUTH EVERY DAY (TAKE WITH 40MG CAPSULE) Rx Instructions: TAKE 1 CAPSULE BY MOUTH EVERY DAY ALONG WITH 40MG TO=60MG TOTAL. rosuvastatin 20 mg tablet 20 mg PO QPM Qty: 90 3RF lisinopril 10 mg tablet 10 mg PO QPM Qty: 90 3RF metformin 500 mg tablet extended release 24 hr 500 mg PO BID Qty: 60 6RF furosemide 40 mg tablet 40 mg PO DAILY PRN (Reason: swelling) potassium chloride 10 mEq tablet extended release See Rx Instructions .ROUTE .COMPLEX Rx Instructions: TAKE 1 TABLET BY MOUTH EVERY DAY WHEN TAKING FUROSEMIDE gabapentin 100 mg capsule 100 mg PO TID insulin glargine [Lantus Solostar U-100 Insulin] 100 unit/mL (3 mL) insulin pen 100 unit SUBCUT QPM acetaminophen 500 mg Tablet 1,000 mg PO Q6H PRN (Reason: Pain) ferrous sulfate [iron] 325 mg (65 mg iron) Tablet 325 mg PO BEDTIME ibuprofen 200 mg Tablet 400 mg PO Q6H PRN (Reason: Pain) Discharge Orders: Discharge Order (Routine); Ordered 06/24/24 Ordered By: Paloma Akhtar Referrals: Marlon Bowman MD [Primary Care Provider] - 06/29/24 10:00 am () Patient Instructions: Benzonatate (By mouth), Prednisone (By mouth), Amoxicillin/Clavulanate Potassium (By mouth), Azithromycin (By mouth) (Zithromax, Zithromax Tri-Mukesh, Zithromax..., Tiotropium (By breathing) (Spiriva, Spiriva Respimat), Budesonide/Formoterol (By breathing) (Symbicort, Symbicort Aerosphere), Influenza (DC), Community Acquired Pneumonia (DC), Opioid Safety Discharge Attestations Time Spent in Discharge Care*: greater than 30 min Quality Metrics Clinical Quality Measures [ No reported AMI, CVA or VTE this stay] Coding Level of Care Code Acute Code for Chg Fwd Diagnoses Diabetes mellitus type 2, uncontrolled Restless leg syndrome G25.81 Asthma J45.909 Hypoxemia R09.02 Severe obstructive sleep apnea G47.33 Malaise and fatigue R53.81; R53.83 Sepsis A41.9 Pneumonia J18.9
== END 2024-06-24 13:35 | disposition home or self-care (01) | DRG 871 ==
LOC: ER 20:21 → MEDSURG 22:42
PROVIDERS: Family Medicine; Admitting Provider Internal Medicine; Emergency Provider Emergency Medicine; PCP Family Medicine; Visit Provider Student in an Organized Health Care Education/Training Program
DX: A41.9 Sepsis, unspecified organism (principal); J18.9 Pneumonia, unspecified organism; J96.01 Acute respiratory failure with hypoxia; J45.901 Unspecified asthma with (acute) exacerbation; E11.65 Type 2 diabetes mellitus with hyperglycemia; G25.81 Restless legs syndrome; G47.33 Obstructive sleep apnea (adult) (pediatric); E66.01 Morbid (severe) obesity due to excess calories; Z68.31 Body mass index [BMI] 31.0-31.9, adult; I10 Essential (primary) hypertension; Z79.85 Long-term (current) use of injectable non-insulin antidiabetic drugs; Z79.84 Long term (current) use of oral hypoglycemic drugs; Z79.4 Long term (current) use of insulin
CPT/HCPCS: 36415; 36416; 36600; 71045; 71275; 80048; 80051; 80053; 81001; 82330; 82805; 82962; 83605; 83735; 84145; 85025; 86140; 87040; 87070; 87205; 87637; 93005; 94640; 96365; 96372; 96375; 99285; J0131; J0696; J1644; J1815; J1956; J2919; J7030; J7040; J7512; J9999; Q0144

== ENCOUNTER 2024-07-08 12:26 | Outpatient (CLI) | payer OTHER, SELFPAY ==
--- NOTE | 2024-07-08 12:31 | XR_ITS ---
WS: [id number] XR chest 2V* [id number] REASON FOR EXAM: Pneumonia FINDINGS: Chest is unchanged compared to 08/23/2021. Mild tortuosity of the thoracic aorta. There is widening of the mediastinum which has been shown to represent a large amount of fat in the mediastinum on a CT scan of 06/21/2024. Calcified granulomatous disease bilaterally. The areas of bronchocentric lung consolidation seen on the previous CT scan are not identifiable on this plain radiograph. No acute pulmonary parenchymal or pleural abnormality is identified. XR/XR chest 2V* [id number] IMPRESSION: Stable chest without acute abnormality.
== END 2024-07-08 12:27 | disposition home or self-care (01) ==
LOC: RAD 12:27
PROVIDERS: PCP Family Medicine; Visit Provider Family Medicine
DX: J18.9 Pneumonia, unspecified organism (principal); R91.8 Other nonspecific abnormal finding of lung field; J84.10 Pulmonary fibrosis, unspecified
CPT/HCPCS: 71046

== ENCOUNTER 2024-09-12 11:29 | Emergency (ER) | payer OTHER, SELFPAY ==
[2024-09-12 11:37] VITALS: BP 147/66; PULSE 81; RESP 22; TEMP 37; O2SAT 92; BMI 56.5
--- NOTE | 2024-09-12 11:43 | ECG_ITS ---
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 Measurements Intervals [place] Rate: 82 P: 46 [place]: 190 QRS: -13 QRSD: 102 T: 48 QT: 390 QTc: 456 Interpretive Statements SINUS RHYTHM LOW QRS VOLTAGE IN PRECORDIAL LEADS [QRS DEFLECTION < 1.0 mV IN CHEST LEADS] POSSIBLE ANTERIOR MYOCARDIAL INFARCTION , PROBABLY OLD [30 ms Q WAVE IN V3/V4, OR R < 0.2 mV IN V4] Compared to ECG 06/21/2024 16:05:49 Sinus tachycardia no longer present Myocardial infarct finding still present Electronically Signed On 09-14-2024 22:09:06 CDT by Remigio Sheldon M.D. [email or web address]
--- NOTE | 2024-09-12 11:43 | XRR_ITS ---
PROCEDURE INFORMATION: Exam: XR Chest Exam date and time: 09/12/2024 11:45 AM Age: 59 years old Clinical indication: Cough and dyspnea; Additional info: Dyspnea/cough TECHNIQUE: Imaging protocol: Radiologic exam of the chest. Views: 1 view. COMPARISON: 1. CR XR chest 2V* [id number] 07/08/2024 12:35 PM 2. CR XR chest 1V portable [id number] 06/21/2024 4:33 PM 3. CR XR chest 1V portable [id number] 09/15/2022 7:29 AM FINDINGS: Lungs: Atelectasis and/or infiltrate left lung base appearing increased compared to 07/08/2024. Slight atelectasis, infiltrate, and/or scarring right lung base similar to prior study. Pleural spaces: Blunting left lateral costophrenic angle suggesting small left pleural effusion and/or pleural thickening. No large or obvious pneumothorax seen. Heart/Mediastinum: Heart size appears enlarged, increased, though some of the interval change could be due to technical factors. Persistent widening of mediastinum similar to prior studies. Vasculature: Atherosclerotic disease. Bones/joints: Curvature, degenerative changes spine. XR/XR chest 1V portable [id number] IMPRESSION: Atelectasis and/or infiltrate left lung base appearing increased compared to 07/08/2024. Slight atelectasis, infiltrate, and/or scarring right lung base similar to prior study. : Blunting left lateral costophrenic angle suggesting small left pleural effusion and/or pleural thickening.
--- NOTE | 2024-09-12 11:46 | W.ED.SOB ---
HPI - SOB/Dyspnea General: Chief Complaint: Shortness of Breath/Dyspnea Stated Complaint: high bp, chest tightness Time Seen by Provider: 09/12/24 11:41 History of Present Illness: HPI Narrative: 59-year-old female presents emergency room with complaint of shortness of breath for the last 3 days. Patient has a history of asthma. She also notes her blood pressure has been elevated at home. She is on Lasix, hydrochlorothiazide and lisinopril. Patient used albuterol treatment at home today because her be little jittery but did not really relieve any of her symptoms Associated symptoms: Deny abdominal pain, chest pain or fever(s) Related Data Home Medications ?Medication ?Instructions ?Recorded ?Confirmed acetaminophen 500 mg tablet 1,000 mg PO Q6H PRN Pain 07/09/21 09/12/24 ferrous sulfate 325 mg (65 mg 325 mg PO BEDTIME 07/09/21 09/12/24 iron) tablet (iron) ibuprofen 200 mg tablet 400 mg PO Q6H PRN Pain 03/03/22 09/12/24 furosemide 40 mg tablet 40 mg PO DAILY PRN swelling 06/21/24 09/12/24 gabapentin 100 mg capsule 100 mg PO TID 06/21/24 09/12/24 insulin glargine 100 unit/mL (3 100 unit SUBCUT QPM 06/21/24 09/12/24 mL) subcutaneous pen (Lantus Solostar U-100 Insulin) potassium chloride 10 mEq See Rx Instructions .Route .COMPLEX 06/21/24 09/12/24 tablet,extended release Previous Rx's ?Medication ?Instructions ?Recorded Nebulizer #1 ea 03/06/22 blood-glucose sensor (Dexcom G6 #3 ea 01/08/24 Sensor device) blood-glucose transmitter (Dexcom #1 ea 01/08/24 G6 Transmitter device) blood-glucose,nurse anesthesia program director,cont #1 ea 01/08/24 (Dexcom G6 Private Equity Analyst) dulaglutide 0.75 mg/0.5 mL 0.75 mg (0.5 mL) SUBCUT Q7D #2 mL 01/08/24 subcutaneous [facility] ([facility]) fluoxetine 20 mg capsule See Rx Instructions .Route 03/21/24 .COMPLEX #30 caps fluoxetine 40 mg capsule See Rx Instructions .Route 03/21/24 .COMPLEX #30 caps sitagliptin phosphate 100 mg 100 mg PO QPM #30 tabs 03/21/24 tablet (Januvia) rosuvastatin 20 mg tablet 20 mg PO QPM #90 tabs 05/23/24 metformin 500 mg tablet,extended 500 mg PO BID #60 tabs 06/13/24 release 24 hr budesonide-formoterol HFA 80 2 inh inhalation BID #10.2 grams 06/24/24 mcg-4.5 mcg/actuation aerosol inhaler (Symbicort) tiotropium bromide 1.25 2 inh inhalation DAILY #4 grams 06/24/24 mcg/actuation mist for inhalation (Spiriva Respimat) hydrochlorothiazide 12.5 mg tablet 12.5 mg PO BEDTIME #30 tabs 07/04/24 ropinirole 1 mg tablet 1 mg PO DAILY #30 tabs 07/19/24 levofloxacin 750 mg tablet 750 mg PO DAILY 7 days #7 tabs 09/12/24 lisinopril 20 mg tablet 20 mg PO DAILY #30 tabs 09/12/24 Allergies Allergy/AdvReac Type Severity Reaction Status Date / Time No Known Allergies Allergy Verified 06/21/24 16:11 Review of Systems Const: Denies: fever(s) or chills Card: Denies: chest pain Resp: Denies: dyspnea GI: Denies: abdominal pain : Denies: dysuria, urinary frequency or urinary urgency Musc: Denies: neck pain or back pain Skin/Breast: Denies: rash PFSH ED PFSH: Medical History (Updated 09/12/24 @ 15:09 by Ed Davis DO) Asthma Diabetes Family history of thyroid disease Family history of NM (myocardial infarction) Surgical History H/O: hysterectomy Cancer - Removal of both ovaries and cervix No pertinent past surgical history Family History Sister Cancer Nasopharyngeal cancer, junctional tumor Other Diabetes Family history of premature coronary artery disease No pertinent family history Social History Smoking and tobacco/nicotine status: never used tobacco/nicotine Alcohol intake: never Substance/Drug Use: never Household members: family Housing: House Physical Exam Const: GENERAL APPEARANCE: cooperative ORIENTATION/CONSCIOUSNESS: Yes awake, Yes oriented to person, Yes oriented to place and Yes oriented to time HENMT: COMMON NORMALS: normocephalic, atraumatic and hearing grossly normal bilaterally HEAD & SCALP: normocephalic and atraumatic Resp: COMMON NORMALS: normal respiratory effort, No retractions, No use of accessory muscles and clear to auscultation bilaterally AUSCULTATION: clear to auscultation bilaterally Cardio: COMMON NORMALS: regular rate, regular rhythm and No murmurs present (Cardio) RATE: regular rate RHYTHM: regular rhythm GI: COMMON NORMALS: Soft to palpation and No hepatosplenomegaly present AUSCULTATION: Yes normoactive bowel sounds PALPATION: Yes Soft to palpation, No Tenderness to palpation present (GI), No Guarding due to palpation present (GI) and Yes No hepatosplenomegaly present Extremity: COMMON NORMALS: normal to inspection, capillary refill normal, no clubbing, cyanosis or edema, no calf tenderness and no pedal edema Neuro: SENSORIUM/ORIENTATION: Yes oriented to person, Yes oriented to place and Yes oriented to time Skin: COMMON NORMALS: no rashes or lesions noted GENERAL SKIN EXAM: no rashes or lesions noted Course Vital Signs: Vital signs: Vital Signs Temperature 98.6 F 09/12/24 11:37 Pulse Rate 87 09/12/24 15:41 Respiratory Rate 16 09/12/24 14:14 Blood Pressure 158/67 09/12/24 15:41 Pulse Oximetry 98 09/12/24 15:41 Oxygen Delivery Me thod Room Air 09/12/24 13:57 MDM - SOB/Dyspnea Medical Decision Making Blood pressure slightly elevated. Improved with medications given. Chest x-ray she also has little pneumonia we will start her on oral antibiotics begin Levaquin 750 daily increase lisinopril to 20 daily and have her follow-up with her primary care doctor within the next week return if has further problems Medical Records I reviewed the patient's medical records. Lab Data I reviewed the patient's lab results. 09/12/24 12:05 09/12/24 12:05 Labs/Radiology: Radiology Impressions Chest X-Ray 09/12/24 11:43 IMPRESSION: Atelectasis and/or infiltrate left lung base appearing increased compared to 07/08/2024. Slight atelectasis, infiltrate, and/or scarring right lung base similar to prior study. : Blunting left lateral costophrenic angle suggesting small left pleural effusion and/or pleural thickening. Laboratory Results WBC 9.17 10^3/uL (3.29-11.43) 09/12/24 12:05 RBC 3.54 10^6/uL (3.85-5.65) L 09/12/24 12:05 Hgb 10.20 g/dL (11.27-16.99) L 09/12/24 12:05 Hct 33.9 % (36-47) L 09/12/24 12:05 MCV 95.8 fl (85-98) 09/12/24 12:05 MCH 28.8 pg (27-33) 09/12/24 12:05 MCHC 30.1 g/dL (30-55) 09/12/24 12:05 RDW 14.7 % (12.1-15.1) 09/12/24 12:05 Plt Count 258 10^3/cmm (157-399) 09/12/24 12:05 MPV 9.1 fL (7.4-10.4) 09/12/24 12:05 Neut % (Auto) 84.3 % 09/12/24 12:05 Lymph % (Auto) 10.9 % 09/12/24 12:05 [place] % (Auto) 3.2 % 09/12/24 12:05 Eos % (Auto) 0.9 % 09/12/24 12:05 Baso % (Auto) 0.3 % 09/12/24 12:05 Neut # (Auto) 7.73 10^3/uL (1.8-7.7) H 09/12/24 12:05 Lymph # (Auto) 1.0 10^3/uL (0.8-4.8) 09/12/24 12:05 [place] # (Auto) 0.3 10^3/uL (0.2-0.9) 09/12/24 12:05 Eos # (Auto) 0.1 10^3/uL (0.0-0.8) 09/12/24 12:05 Baso # (Auto) 0.0 10^3/uL (0.0-0.1) 09/12/24 12:05 Nucleated RBC % (auto) 0 % 09/12/24 12:05 Nucleated RBCs # 0.0 /100WBC 09/12/24 12:05 Specimen Type Arterial 09/12/24 12:06 Sample Site Radial, left 09/12/24 12:06 ABG pH 7.40 (7.35-7.45) 09/12/24 12:06 ABG pCO2 44.7 mmHg (35-45) 09/12/24 12:06 ABG pO2 65.8 mmHg (80.0-100.0) L 09/12/24 12:06 ABG PO2/FiO2 Ratio 313 09/12/24 12:06 ABG HCO3 27.4 mmol/L (22-26) H 09/12/24 12:06 ABG O2 Saturation 93.5 09/12/24 12:06 ABG Base Excess 2.1 mmol/L (-2.0-2.0) H 09/12/24 12:06 Vicente Test Pos 09/12/24 12:06 A-a O2 Gradient 3.7 mmHg (5-10) L 09/12/24 12:06 Hematocrit 32.9 % (37-47) L 09/12/24 12:06 Hgb O2 Saturation 91.3 % (95-100) L 09/12/24 12:06 Carboxyhemoglobin 1.5 %THgb (0.4-20.1) 09/12/24 12:06 Methemoglobin 0.8 % (0.4-1.5) 09/12/24 12:06 Total Hemoglobin 10.7 g/dL (12-16) L 09/12/24 12:06 Sodium 138.0 mmol/L (131-143) 09/12/24 12:06 Potassium 4.3 mmol/L (3.5-5.0) 09/12/24 12:06 Glucose 307.0 mg/dL (70-115) H 09/12/24 12:06 Ionized Calcium 1.2 mmol/L (1.1-1.4) 09/12/24 12:06 O2 Delivery Device Room air 09/12/24 12:06 FiO2 21.0 % 09/12/24 12:06 Small Parts Assembler ID [place] 09/12/24 12:06 Sodium 134 mmol/L (136-145) L 09/12/24 12:05 Potassium 4.8 mmol/L (3.5-5.1) 09/12/24 12:05 Chloride 98 mmol/L (98-107) 09/12/24 12:05 Carbon Dioxide 25 mmol/L (22-29) 09/12/24 12:05 Anion Gap 15.8 (5-19) 09/12/24 12:05 BUN 9 mg/dL (6-20) 09/12/24 12:05 Creatinine 0.6 mg/dL (0.5-0.9) 09/12/24 12:05 GFR Calculation 103.0 mL/min (90-130) 09/12/24 12:05 Glucose 297 mg/dL (65-115) H 09/12/24 12:05 Calculated Osmolality 288 mOsm/kg (285-295) 09/12/24 12:05 Calcium 9.0 mg/dL (8.5-10.5) 09/12/24 12:05 Total Bilirubin 0.3 mg/dL (0.15-1.2) 09/12/24 12:05 AST 27 U/L (0-32) 09/12/24 12:05 ALT 22 U/L (0-33) 09/12/24 12:05 Alkaline Phosphatase 122 U/L (35-105) H 09/12/24 12:05 Troponin T Baseline 7 ng/L (0-10) 09/12/24 12:05 Troponin T 120 Minute 6.81 ng/L (0-10) 09/12/24 13:45 Delta Troponin T -0.19 ABS# (0-10) L 09/12/24 13:45 Total Protein 6.1 g/dL (6.6-8.7) L 09/12/24 12:05 Albumin 3.9 g/dL (3.5-5.2) 09/12/24 12:05 Globulin 2.2 g/dL (1.3-4.6) 09/12/24 12:05 Urine Color Yellow (Yellow) 09/12/24 14:06 Urine Appearance Clear (CLEAR) 09/12/24 14:06 Urine pH 5.5 (5-7) 09/12/24 14:06 Ur Specific [place] 1.024 (1.005-1.030) 09/12/24 14:06 Urine Protein Negative (Negative) 09/12/24 14:06 Urine Glucose (UA) 3+ (Normal) H 09/12/24 14:06 Urine Ketones Negative (Negative) 09/12/24 14:06 Urine Blood Negative (Negative) 09/12/24 14:06 Urine Nitrate Negative (Negative) 09/12/24 14:06 Urine Bilirubin Negative (Negative) 09/12/24 14:06 Urine Urobilinogen 1.0 mg/dL (Negative) 09/12/24 14:06 Ur Leukocyte Esterase Negative (Negative) 09/12/24 14:06 Urine RBC 0-2 /hpf (0-2) 09/12/24 14:06 Urine WBC 0-5 /hpf (0-5) 09/12/24 14:06 Ur Squamous Epith Cells 0-5 /hpf (0-5) 09/12/24 14:06 Amorphous Sediment Not Reportable 09/12/24 14:06 Urine Bacteria Trace /hpf (NONE) 09/12/24 14:06 Hyaline Casts 1.65 /lpf 09/12/24 14:06 All radiology interpretation(s) finalized by discharge Discharge Plan Discharge Patient Disposition: Home Clinical Impression: Pneumonia, HTN (hypertension) Condition: Stable Prescriptions: New lisinopril 20 mg tablet 20 mg PO DAILY Qty: 30 0RF levofloxacin 750 mg tablet 750 mg PO DAILY 7 Days Qty: 7 0RF Discontinued lisinopril 10 mg tablet 10 mg PO QPM Qty: 90 3RF No Action (DME) Nebulizer See Rx Instructions .Route .MEDSUPPLY Qty: 1 0RF Rx Instructions: As directed - Use every 6 hours as needed for dyspnea Trulicity 0.75 mg/0.5 mL pen injector 0.75 mg SUBCUT Q7D Qty: 2 6RF Rx Instructions: Thursday (DME) Dexcom G6 Sensor Device See Rx Instructions .ROUTE .MEDSUPPLY Qty: 3 6RF Rx Instructions: As directed (DME) Dexcom G6 Private Equity Analyst Misc See Rx Instructions .ROUTE .MEDSUPPLY Qty: 1 0RF Rx Instructions: As directed (DME) Dexcom G6 Transmitter Device See Rx Instructions .ROUTE .MEDSUPPLY Qty: 1 2RF Rx Instructions: As directed Januvia 100 mg tablet 100 mg PO QPM Qty: 30 6RF fluoxetine 40 mg capsule See Rx Instructions .ROUTE .COMPLEX Qty: 30 6RF Dose Instruction: take ONE capsule BY MOUTH EVERY DAY (take with 20mg) Rx Instructions: TAKE ONE CAPSULE BY MOUTH EVERY DAY ALONG WITH 20MG TO=60MG TOTAL. fluoxetine 20 mg capsule See Rx Instructions .ROUTE .COMPLEX Qty: 30 6RF Dose Instruction: TAKE 1 CAPSULE BY MOUTH EVERY DAY (TAKE WITH 40MG CAPSULE) Rx Instructions: TAKE 1 CAPSULE BY MOUTH EVERY DAY ALONG WITH 40MG TO=60MG TOTAL. rosuvastatin 20 mg tablet 20 mg PO QPM Qty: 90 3RF metformin 500 mg tablet extended release 24 hr 500 mg PO BID Qty: 60 6RF hydrochlorothiazide 12.5 mg tablet 12.5 mg PO BEDTIME Qty: 30 6RF ropinirole 1 mg tablet 1 mg PO DAILY Qty: 30 6RF furosemide 40 mg tablet 40 mg PO DAILY PRN (Reason: swelling) potassium chloride 10 mEq tablet extended release See Rx Instructions .ROUTE .COMPLEX Rx Instructions: TAKE 1 TABLET BY MOUTH EVERY DAY WHEN TAKING FUROSEMIDE gabapentin 100 mg capsule 100 mg PO TID insulin glargine [Lantus Solostar U-100 Insulin] 100 unit/mL (3 mL) insulin pen 100 unit SUBCUT QPM budesonide-formoterol [Symbicort] 80-4.5 mcg/actuation HFA aerosol inhaler 2 inh inhalation BID Qty: 10.2 2RF Spiriva Respimat 1.25 mcg/actuation mist 2 inh inhalation DAILY Qty: 4 1RF acetaminophen 500 mg Tablet 1,000 mg PO Q6H PRN (Reason: Pain) ferrous sulfate [iron] 325 mg (65 mg iron) Tablet 325 mg PO BEDTIME ibuprofen 200 mg Tablet 400 mg PO Q6H PRN (Reason: Pain) Discharge Orders: Discharge ED (Routine); Ordered 09/12/24 Ordered By: Ed Davis Referrals: Marlon Bowman MD [Primary Care Provider, Family Practice] Discharge Diet: Usual diet Discharge Activity: Increase activity as tolerated Patient Instructions: Opioid Safety, Pain Management Activity Restrictions/Additional Instructions: Thank you for choosing [facility] for your healthcare needs today. It is very important that you follow up as instructed or that you return to the Emergency Department should you have concerns or if your condition changes or worsens in any way. You were seen in the emergency room with complaints of shortness of breath mild chest comfort your 2 EKGs and heart enzymes are normal. Chest x-ray shows what appears to be a slight new pneumonia at the base of your left lung we will start you on some oral antibiotics for the next 7 days follow-up with your primary care doctor. Additionally your blood pressure was elevated recommend you increase your lisinopril to 20 mg daily. Follow-up with your primary care doctor on blood pressure medicine adjustment as well. Print Language: Romanian Coding Level of Care Code ED Inspector Metal Can for Nikolai Lentz
--- NOTE | 2024-09-12 11:58 | ECG_ITS ---
[facility] Date: 2024-[facility]12 Pat Name: Camilla Tavares Department: Room: Gender: Female Architectural Technician: : 1965 Requested By: Ed Carrillo Order Number: [id number] Aria MD: Reimgio Sheldon M.D. Measurements Intervals [place] Rate: 74 P: 44 AL: 187 QRS: -1 QRSD: 102 T: 30 QT: 385 QTc: 429 Interpretive Statements SINUS RHYTHM LOW QRS VOLTAGE IN PRECORDIAL LEADS [QRS DEFLECTION < 1.0 mV IN CHEST LEADS] POSSIBLE ANTERIOR MYOCARDIAL INFARCTION , OF INDETERMINATE AGE [30 ms Q WAVE IN V3/V4, OR R < 0.2 mV IN V4] Compared to ECG 06/21/2024 16:05:49 Sinus tachycardia no longer present Myocardial infarct finding still present Electronically Signed On 09-14-2024 22:08:39 CDT by Remigio Sheldon M.D. [email or web address]
[2024-09-12] MEDS: aspirin 81 mg Chew Tablet 324 MG PO (12:12)
[2024-09-12 12:14] VITALS: BP 157/93
[2024-09-12 12:17] LABS: ABG PCO2 44.7 mmHg (35-45); Alveolar-Arterial Oxygen Gradi 3.7 mmHg (5-10); Arterial Blood Gas Hematocrit 32.9 % (37-47); Base Excess ABG 2.1 mmol/L (-2.0-2.0); Blood Gas Allen Test Pos; Blood Gas Operator Identificat WALCI; Blood Gas Sample Site Radial, left; Blood Gas Sample Type Arterial; Carboxyhemoglobin 1.5 %THgb (0.4-20.1); HCO3 ABG 27.4 mmol/L (22-26); HGB O2 Sat 91.3 % (95-100); Ionized Calcium Level - ABG 1.2 mmol/L (1.1-1.4); Methemoglobin 0.8 % (0.4-1.5); Oxygen Device ROOM AIR; Oxygen Saturation ABG 93.5; PO2 ABG 65.8 mmHg (80.0-100.0); PO2 FiO2 Ratio Arterial Blood 313; Potassium Level - ABG 4.3 mmol/L (3.5-5.0); Total Hemoglobin 10.7 g/dL (12-16)
[2024-09-12 12:26] LABS: Basophils % 0.3 %; Eosinophils # 0.1 10^3/uL (0.0-0.8); Eosinophils % 0.9 %; Hematocrit 33.9 % (36-47); Lymphocytes % 10.9 %; Mean Corpuscular HGB Conc 30.1 g/dL (30-55); Mean Corpuscular Hemoglobin 28.8 pg (27-33); Mean Corpuscular Volume 95.8 fl (85-98); Mean Platelet Volume 9.1 fL (7.4-10.4); Monocytes # 0.3 10^3/uL (0.2-0.9); Monocytes % 3.2 %; Neutrophils # 7.73 10^3/uL (1.8-7.7); Neutrophils % 84.3 %; Nucleated Red Blood Cells % 0 %; Platelet Count 258 10^3/cmm (157-399); Red Blood Count 3.54 10^6/uL (3.85-5.65); Red Cell Distribution Width 14.7 % (12.1-15.1); White Blood Count 9.17 10^3/uL (3.29-11.43)
[2024-09-12 12:44] LABS: Troponin(5th) Baseline 7 ng/L (0-10)
[2024-09-12 12:47] LABS: Alanine Aminotransferase 22 U/L (0-33); Albumin Level 3.9 g/dL (3.5-5.2); Alkaline Phosphatase 122 U/L (35-105); Anion Gap 15.8 (5-19); Aspartate Amino Transferase 27 U/L (0-32); Blood Urea Nitrogen 9 mg/dL (6-20); Carbon Dioxide 25 mmol/L (22-29); Chloride 98 mmol/L (98-107); Creatinine Clr Calc Pharmacy 161.8123; Globulin 2.2 g/dL (1.3-4.6); Glucose 297 mg/dL (65-115); Osmolality Calculated 288 mOsm/kg (285-295); Potassium 4.8 mmol/L (3.5-5.1); Sodium 134 mmol/L (136-145); Total Bilirubin 0.3 mg/dL (0.15-1.2); Total Protein 6.1 g/dL (6.6-8.7)
[2024-09-12 13:49] VITALS: BP 176/88; PULSE 72; RESP 16; O2SAT 94
[2024-09-12 13:57] VITALS: PULSE 84; RESP 20; O2SAT 92
[2024-09-12] MEDS: ipratropium-albuterol 3 mL Neb INHALATION (14:00)
[2024-09-12 14:12] LABS: Bilirubin Urine Negative (Negative); Blood Urine Negative (Negative); Glucose Urine UA 3+ (Normal); Ketones Urine Negative (Negative); Leukocyte Esterase Urine Negative (Negative); Nitrate Urine Negative (Negative); Protein Urine Negative (Negative); Specific Gravity, Urine 1.024 (1.005-1.030); Urine Appearance Clear (CLEAR); Urine Color Yellow (Yellow); pH Urine 5.5 (5-7)
[2024-09-12 14:14] VITALS: BP 168/97; PULSE 79; RESP 16; O2SAT 91
[2024-09-12 14:17] LABS: Add Urine Microscopic? YES; Bacteria Urine Trace /hpf; Hyaline Casts Urine 1.65 /lpf; RBC Urine 0-2 /hpf (0-2); Squamous Epithelial Cell Urine 0-5 /hpf (0-5); WBC Urine 0-5 /hpf (0-5)
[2024-09-12 14:20] LABS: Troponin 5 2HR 6.81 ng/L (0-10)
[2024-09-12 14:21] LABS: Troponin 5 2HR Delta -0.19 ABS# (0-10)
--- NOTE | 2024-09-12 15:03 | ECG_ITS ---
[facility] Date: 2024-09-12 Pat Name: Camilla Tavares Department: Room: Gender: Female Diabetologist: : 1965 Requested By: Ed Carrillo Order Number: [id number] Aria MD: Remigio Sheldon M.D. Measurements Intervals [place] Rate: 70 P: 40 VT: 190 QRS: -5 QRSD: 104 T: 30 QT: 391 QTc: 424 Interpretive Statements SINUS RHYTHM POSSIBLE ANTERIOR MYOCARDIAL INFARCTION , OF INDETERMINATE AGE [30 ms Q WAVE IN V3/V4, OR R < 0.2 mV IN V4] Compared to ECG 09/12/2024 12:33:29 No significant changes Electronically Signed On 09-14-2024 22:22:35 CDT by Remigio Sheldon M.D. [email or web address] [email or web address]
[2024-09-12 15:41] VITALS: BP 158/67; PULSE 87; O2SAT 98
== END 2024-09-12 15:42 | disposition home or self-care (01) ==
PROVIDERS: Emergency Provider Family Medicine; PCP Family Medicine
DX: J18.9 Pneumonia, unspecified organism (principal); E11.9 Type 2 diabetes mellitus without complications; I10 Essential (primary) hypertension; Z79.899 Other long term (current) drug therapy; Z79.84 Long term (current) use of oral hypoglycemic drugs
CPT/HCPCS: 36415; 36600; 71045; 80051; 80053; 81001; 82330; 82805; 84484; 85025; 93005; 94640; 99285; J9999

== ENCOUNTER → 2024-09-27 15:03 | Outpatient (BNVA) | payer OTHER, SELFPAY | PROVIDERS: PCP Family Medicine; Visit Provider Family Medicine | DX: E11.9 Type 2 diabetes mellitus without complications (principal) | CPT/HCPCS: 83036 ==

== ENCOUNTER 2024-11-12 16:19 | Observation (INO) | payer OTHER, SELFPAY ==
[2024-11-12] VITALS (10 sets, daily range): BP systolic 148–182; BP diastolic 74–91; PULSE 73–90; RESP 14–24; TEMP 36.6–38.4; O2SAT 85–97; BMI 56.5
--- OUTSIDE RECORDS SUMMARY | 2024-11-12 16:28 | XMS_ITS | Clinical Summary ---
Author Organization [facility] Address [address] [place] [address] Phone Care Team Providers Care Collar Band Creaser Name Role Phone Modesto Martinez MD Primary Care Provider + Allergies No known active allergies Medications FLUoxetine (PROzac) 20 mg capsule Take 40 mg by mouth see administration instructions 2 pills on even days & 1 pill on odd days at HS. Active ibuprofen (MOTRIN) 800 mg tablet Take 800 mg by mouth every 6 hours as needed for Pain, Mild. Active acetaminophen (TYLENOL) 500 mg tablet Take 1,000 mg by mouth every 6 hours as needed for Pain, Mild / Temperature. Active rosuvastatin (CRESTOR) 20 mg tablet Take 20 mg by mouth daily at bedtime . Active lisinopril (PRINIVIL) 10 mg tablet Take 10 mg by mouth daily. Active insulin degludec (TRESIBA FLEXTOUCH U-100) 100 unit/mL pen syringe Inject by subcutaneous injection. Active multivitamin (DAILY-ALKA) tablet Take 1 Tablet by mouth daily. Active IRON ORAL Take by mouth. Activ e sitagliptin phosphate (JANUVIA ORAL) Take by mouth. Active metformin HCl (METFORMIN ORAL) Take by mouth. Activ e dulaglutide (Trulicity) 0.75 mg/0.5 mL injection Inject 0.75 mg by subcutaneous injection. Active Active Problems Problem Noted Date Diagnosed Date History of radiation therapy 08/10/2017 Morbid obesity with BMI of 50.0-59.9, adult 12/06 Personal history of FIGO sta ge IA Grade 2 endometrial adenocarcinoma (18% invasion, + LVSI. No nodes taken) 12/16/2016 Cancer Staging:Pathologic stage from 01/02/2017:FIGO Stage IA, calculated as Stage Unknown(T1a, NX) - Signed by Mohit Singletary MD on 01/02/2017 Type 2 diabetes mellitus without complication Immunizations Immunization Administration Dates Next Due Influenza Seasonal Unspecified Formulation IM Family History Medical History Relation Name Comments No Known Problems Brother 1 sal Asthma Brother 2 cesar Thyroid Disease Brother 2 cesar Aneurysm Father Cancer Father prostate Diabetes Father Thyroid Disease Father Cancer Maternal Aunt lung Heart Disease Maternal Grandfather Stroke Maternal Grandfather Cancer Maternal Grandmother leukemi a Cancer Maternal Uncle leukemia Thyroid Disease Mother Cancer Other great gma ovarian Cancer Paternal Aunt lung Heart Disease Paternal Grandfather Heart Disease Paternal Grandmother Cancer Paternal Uncle prostate Asthma Sister 1 perla Cancer Sister 2 robert cervical tumor Thyroid Disease Sister 2 robert No Known Problems Sister 3 yin Thyroid Disease Sister 4 yony No Known Problems Sister 5 keila Relation Name Status Comments Brother 1 sal Alive Brother 2 cesar Alive Father Alive Maternal Aunt Maternal Grandfather Maternal Grandmother Maternal Uncle Mother Alive Other great gma Alive Paternal Aunt Paternal Grandfather Paternal Grandmother Paternal Uncle Sister 1 perla Alive Sister 2 robert Alive Sister 3 yin Alive Sister 4 yony Alive Sister 5 keila Alive Social History Tobacco Use Types Packs/Day Years Used Date Smoking Tobacco: Never Smokeless Tobacco: Never Alcohol Use Standard Drinks/Week Comments No 0 (1 standard drink = 0.6 oz pur e alcohol) Comments No Sex and Gender Information Value Date Recorded Sex Assigned at Not on file Legal Sex Female 11:54 AM CDT Gender Identity Not on file Sexual Orientation Not on file Last Filed Vital Signs Vital Sign Reading Time Taken Comments Blood Pressure 134/83 05/30/2020 10:40 AM BOTTOM TURNING LATHE TENDER Pulse 70 05/30/2020 10:40 AM BOTTOM TURNING LATHE TENDER Temperature 36.8 C (98.3 F) 05/30/2020 10:40 AM BOTTOM TURNING LATHE TENDER Respiratory Rate 16 01/02/2017 11:5 8 AM CDT Oxygen Saturation 95% 05/30/2020 10: 40 AM BOTTOM TURNING LATHE TENDER Inhaled Oxygen Concentration - - Weight 163.9 kg (361 lb 6.4 oz) 021 10:40 AM BOTTOM TURNING LATHE TENDER Height 167.6 cm (5' 6 ) 05/30/2020 10:4 0 AM BOTTOM TURNING LATHE TENDER Body Mass Index 58.33 05/30/2020 10:40 AM BOTTOM TURNING LATHE TENDER Plan of Treatment Health Maintenance Due Date Last Done Comments DIABETES ANNUAL FOOT EXAM 1985 DIABETES ANNUAL RETINAL EXAM 1985 DIABETES HBA1C Q 6 MONTHS 1985 DIABETES MICROALBUMIN ANNUAL SCREEN 1985 LDL CHOLESTEROL ANNUAL 1985 DTAP/TDAP/TD VACCINES (1 - Tdap) 1986 HEPATITIS B VACCINES (1 of 3 - 19+ 3-dose series) 01/04 BREAST CANCER SCREENING 2007 COLORECTAL SCREENING 01/18/2012 Colorectal Cancer Screening 01/18/2012 FIT-DNA Q 3 years 01/18/2012 FIT/FOBT Q 1 year 01/18/2012 Flex Sig/CT Colonography Q 5 years 01/18/2012 ZOSTER VACCINE (1 of 2) 2017 INFLUENZA VACCINE (#1) 2024 01/14/[address] [address] [id number] [facility] [id number] [place] [address] [place] [id number] RX [employer] RX Member Subscriber Plan / Payer (Ef fective for All Dates) Name:Camilla Tavares Relation to Subscriber:Self Name:Camilla Tavares Payer ID:Not on file Group ID:[id number] Type:RX Commercial Address: [address] Advance Directives For more information, please contact: [phone] * Full Code (Latest Code Status on File) Date Activated Date Inactivated Comments 01/01/2017 2:11 PM 01/02/2017 5:24 PM Care Teams Collar Band Creaser Relationship Specialty Start Date End Date Modesto Martinez MD [address] [place] [address] [phone] PCP - General Family Practice 12/19/16
--- OUTSIDE RECORDS SUMMARY | 2024-11-12 16:28 | XMS_ITS | Clinical Summary ---
Author Organization [facility] Address [address] [facility] Attn: Epic Prelude ADT [place] [id number] Care Team Providers Care Grommet Worker Name Role Phone Modesto Martinez MD Primary Care Provider + Allergies No known active allergies Medications multivitamin (DAILY-ALKA) tablet Take 1 Tablet by mouth daily. 9 Active metformin HCl (METFORMIN ORAL) Take by mouth. 1 Active IRON ORAL Take by mouth. 9 Active sitagliptin phosphate (JANUVIA ORAL) Take by mouth. 1 Active dulaglutide (Trulicity) 0.75 mg/0.5 mL injection Inject 0.75 mg by subcutaneous injection. 1 Active rosuvastatin (CRESTOR) 20 mg tablet Take 20 mg by mouth daily at bedtime. Active lisinopriL (PRINIVIL) 10 mg tablet Take 10 mg by mouth daily. Active FLUoxetine (PROzac) 20 mg capsule Take 40 mg by mouth. Active acetaminophen (TYLENOL) 500 mg tablet Take 1,000 mg by mouth every 6 hours as needed. Active ibuprofen (MOTRIN) 800 mg tablet Take 800 mg by mouth every 6 hours as needed. Active HYDROCHLOROTHI AZIDE ORAL Take by mouth. Acti ve furosemide (LASIX) 40 mg tablet Take 40 mg by mouth daily. Active albuterol sulfate 90 mcg/Actuation inhaler INHALE TWO PUFFS EVERY 6 HOURS NEEDED FOR SHORTNESS OF BREATH OR wheezing 2 Active Symbicort 80-4.5 mcg/actuation HFA Aerosol Inhaler INHALE TWO INHALATIONS BY MOUTH EVERY 12 HOURS 2 Active Spiriva Respimat 1.25 mcg/actuation Mist INHALE TWO INHALATIONS BY MOUTH DAILY 2 Active HYDROcodone-ac etaminophen (NORCO) 5-325 mg tablet TAKE ONE TABLET BY MOUTH EVERY 6 HOURS NEEDED FOR PAIN FOR EIGHT DAY 2 Active insulin degludec (TRESIBA) 100 unit/mL pen syringe Inject by subcutaneous injection. 8 Active lisinopriL (PRINIVIL) 10 mg tablet Take 10 mg by mouth daily. 8 Active FLUoxetine (PROzac) 20 mg capsule Take 40 mg by mouth see administration instructions 2 pills on even days & 1 pill on odd days at HS. 7 Active ibuprofen (MOTRIN) 800 mg tablet Take 800 mg by mouth every 6 hours as needed for Pain, Mild. 7 Active acetaminophen (TYLENOL) 500 mg tablet Take 1,000 mg by mouth every 6 hours as needed for Pain, Mild / Temperature. 7 Active rosuvastatin (CRESTOR) 20 mg tablet Take 20 mg by mouth daily at bedtime . 7 Active Active Problems Problem Noted Date Diagnosed [...] complication Immunizations Immunization Administration Dates Next Due (SPIKEVAX) (12 YRS UP PRIMAR Y SERIES) COVID-19 VACCINE - MRNA-1273(PF) 100 MCG/0.5 ML IM SUSP 03/27/2020 021 Influenza Seasonal Unspecified Formulation IM Family History Medical History Relation Name Comments Asthma Brother 1 cesar Thyroid Disease Brother 1 cesar No Known Problems Brother 2 sal Aneurysm Father Cancer Father prostate Diabetes Father Thyroid Disease Father Cancer Maternal Aunt lung Heart Disease Maternal Grandfather Stroke Maternal Grandfather Cancer Maternal Grandmother leukemi a Cancer Maternal Uncle leukemia Hypertension Mother Thyroid Disease Mother Cancer Other great gma ovarian Cancer Paternal Aunt lung Heart Disease Paternal Grandfather Heart Disease Paternal Grandmother Cancer Paternal Uncle prostate Cancer Sister 1 robert cervical tumor Thyroid Disease Sister 1 robert Cancer Sister 2 yin Thyroid Disease Sister 3 yony No Known Problems Sister 4 keila Asthma Sister 5 perla Relation Name Status Comments Brother 1 cesar Alive Brother 2 sal Alive Father Alive Maternal Aunt Maternal Grandfather Maternal Grandmother Maternal Uncle Mother Alive Other great gma Alive Paternal Aunt Paternal Grandfather Paternal Grandmother Paternal Uncle Sister 1 robert Alive Sister 2 yin Alive Sister 3 yony Alive Sister 4 keila Alive Sister 5 perla Alive Social History Tobacco Use Types Packs/Day Years Used Date Smoking Tobacco: Never Smokeless Tobacco: Never Tobacco Cessation:Counseling Given: Not Answered Alcohol Use Standard Drinks/Week Comments No 0 (1 standard drink = 0.6 oz pur e alcohol) Comments Unknown Sex and Gender Information Value Date Recorded Sex Assigned at Not on file 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 Gender Identity Not on file Sexual Orientation Not on file Last Filed Vital Signs Vital Sign Reading Time Taken Comments Blood Pressure 158/84 11/21/2021 10:44 AM CDT manual Pulse 72 11/21/2021 10:31 AM CDT Temperature 36.5 C (97.7 F) 11/21/2021 10:31 AM CDT Respiratory Rate 16 01/02/2017 11:5 8 AM CDT Oxygen Saturation 90% 11/21/2021 10: 31 AM CDT Inhaled Oxygen Concentration - - Weight 173.9 kg (383 lb 6.4 oz) 022 10:31 AM CDT Height 167.6 cm (5' 6 ) 11/21/2021 10:3 1 AM CDT Body Mass Index 61.88 11/21/2021 10:31 AM CDT Plan of Treatment Health Maintenance Due Date [...] 01/18/2012 ZOSTER VACCINE (1 of 2) 2017 COVID-19 Vaccine ( season) 2023 INFLUENZA VACCINE (#1) 2024 01/14/[address] [place] [id number] RX [employer] Member Subscriber Plan / Payer (Ef fective for All Dates) Name:NapoleonAmy herreraslim Relation to Subscriber:Self Name:Camilla Tavares Payer ID:Not on file Group ID:[id number] Type:RX Commercial Address: [place] [address] [address] [facility] [id number] POS II Care Teams Grommet Worker Relationship Specialty Start Date End Date Modesto Martinez MD [address] [facility] [address] [id number] PCP - General Family Practice 12/19/16
--- NOTE | 2024-11-12 16:38 | XRR_ITS ---
PROCEDURE INFORMATION: Exam: XR Chest Exam date and time: 11/12/2024 4:45 PM Age: 59 years old Clinical indication: Shortness of breath; Additional info: Evaluate possible pneumonia, hypoxic TECHNIQUE: Imaging protocol: Radiologic exam of the chest. Views: 1 view. COMPARISON: CR XR chest 1V portable [id number] 09/12/2024 11:45 AM FINDINGS: Lungs: Patchy opacity at the lung bases, nonspecific, can not exclude atelectasis or infiltrates. Poor visualization of the retrocardiac region and left costophrenic angle, can not exclude small effusion. Cardiomegaly. Pleural spaces: See Lungs finding. Heart/Mediastinum: See Lungs finding. Vasculature: Aortic atherosclerosis. Bones/joints: Unremarkable. XR/XR chest 1V portable [id number] IMPRESSION: Patchy opacity at the lung bases, nonspecific, can not exclude atelectasis or infiltrates. Poor visualization of the retrocardiac region and left costophrenic angle, can not exclude small effusion. Aortic atherosclerosis.
[2024-11-12 17:10] LABS: ABG PCO2 43.0 mmHg (35-45); ABG PH Result 7.45 (7.35-7.45); Arterial Blood Gas Hematocrit 32.1 % (37-47); Blood Gas Allen Test Pos; Blood Gas LPM 3.0 %; Blood Gas Operator Identificat glc; Blood Gas Sample Site Radial, right; Blood Gas Sample Type Arterial; HCO3 ABG 29.7 mmol/L (22-26); PO2 ABG 71.7 mmHg (80.0-100.0); PO2 FiO2 Ratio Arterial Blood 224
[2024-11-12] MEDS: cefepime 1,000 mg SDV 2000 MG IVP (17:10)
[2024-11-12 17:11] LABS: Hematocrit 33.3 % (36-47); Hemoglobin 10.10 g/dL (11.27-16.99); Mean Corpuscular HGB Conc 30.3 g/dL (30-55); Mean Corpuscular Hemoglobin 28.4 pg (27-33); Mean Corpuscular Volume 93.5 fl (85-98); Nucleated Red Blood Cells % 0 %; Platelet Count 219 10^3/cmm (157-399); Red Blood Count 3.56 10^6/uL (3.85-5.65); White Blood Count 10.08 10^3/uL (3.29-11.43)
--- NOTE | 2024-11-12 17:26 | W.ED.SOB ---
HPI - SOB/Dyspnea General: Chief Complaint: Shortness of Breath/Dyspnea Stated Complaint: SOB Time Seen by Provider: 11/12/24 16:32 History of Present Illness: HPI Narrative: HPI: Patient well-known to this emergency department in hospital for hospitalizations associated with pneumonia and hypoxic respiratory failure. Patient states that earlier this week she was having some respiratory symptoms and they worsened through Thursday. Started taking amoxicillin at home on and symptoms have continued to worsen. Now she is extremely short of breath and presents to the emergency department requesting assistance. Subjective fevers at home. No chills or sweats. Patient is concerned about some redness on her left posterior Achilles area as well. REVIEW OF SYSTEMS: 10 systems reviewed and otherwise unremarkable except for those noted in HPI. PHYSCIAL EXAM: Triage vital signs reviewed Gen: A&O NAD HEENT: NCAT, EOMI, not icteric. External ears normal. No rhinorrhea. Moist mucous membranes. Neck: Supple, full range of motion, no observable masses, No meningeal sign. Lungs: No Respiratory distress. Diminished breath sounds in right lower lobe. Upper lobe wheezing auscultated. CV: RRR, no edema. Abdomen: Soft, nondistended, No rebound tenderness. MSK: No joint swelling, mild area of erythema measuring approximately 3 cm in diameter on the distal calf overlying the Achilles tendon. Skin: No rashes, petechiae, lesions. Normal color per patient. Neuro: Normal Gait, Grossly intact. Psych: Appropriate for situation. PROCEDURES: N/A Related Data Home Medications ?Medication ?Instructions ?Recorded ?Confirmed acetaminophen 500 mg tablet 1,000 mg PO Q6H PRN Pain 07/09/21 09/27/24 ferrous sulfate 325 mg (65 mg 325 mg PO BEDTIME 07/09/21 09/27/24 iron) tablet (iron) ibuprofen 200 mg tablet 400 mg PO Q6H PRN Pain 03/03/22 09/27/24 furosemide 40 mg tablet 40 mg PO DAILY PRN swelling 06/21/24 09/27/24 gabapentin 100 mg capsule 100 mg PO TID 06/21/24 09/27/24 potassium chloride 10 mEq See Rx Instructions .Route .COMPLEX 06/21/24 09/27/24 tablet,extended release Previous Rx's ?Medication ?Instructions ?Recorded Nebulizer #1 ea 03/06/22 blood-glucose sensor (Dexcom G6 #3 ea 01/08/24 Sensor device) blood-glucose transmitter (Dexcom #1 ea 01/08/24 G6 Transmitter device) blood-glucose,human services care specialist,cont #1 ea 01/08/24 (Dexcom G6 As400 Developer) rosuvastatin 20 mg tablet 20 mg PO QPM #90 tabs 05/23/24 metformin 500 mg tablet,extended 500 mg PO BID #60 tabs 06/13/24 release 24 hr budesonide-formoterol HFA 80 2 inh inhalation BID #10.2 grams 06/24/24 mcg-4.5 mcg/actuation aerosol inhaler (Symbicort) tiotropium bromide 1.25 2 inh inhalation DAILY #4 grams 06/24/24 mcg/actuation mist for inhalation (Spiriva Respimat) hydrochlorothiazide 12.5 mg tablet 12.5 mg PO BEDTIME #30 tabs 07/04/24 lisinopril 20 mg tablet 20 mg PO DAILY #30 tabs 09/12/24 insulin glargine 100 unit/mL (3 160 unit (1.6 mL) SUBCUT QPM #15 mL 09/27/24 mL) subcutaneous pen (Lantus Solostar U-100 Insulin) fluoxetine 20 mg capsule See Rx Instructions .Route 10/03/24 .COMPLEX #30 caps fluoxetine 40 mg capsule See Rx Instructions .Route 10/03/24 .COMPLEX #30 caps sitagliptin phosphate 100 mg 100 mg PO QPM #30 tabs 10/03/24 tablet (Januvia) ropinirole 2 mg tablet 2 mg PO DAILY #30 tabs 10/13/24 dulaglutide 0.75 mg/0.5 mL 0.75 mg (0.5 mL) SUBCUT Q7D #2 mL 11/08/24 subcutaneous pen injector (Trulicity) Allergies Allergy/AdvReac Type Severity Reaction Status Date / Time No Known Allergies Allergy Verified 06/21/24 16:11 PFS ED PFSH: Medical History (Updated 11/12/24 @ 17:36 by Cristofer Becerra MD) Asthma Diabetes Family history of thyroid disease Family history of AK (myocardial infarction) Surgical History H/O: hysterectomy Cancer - Removal of both ovaries and cervix No pertinent past surgical history Family History Sister Cancer Nasopharyngeal cancer, junctional tumor Other Diabetes Family history of premature coronary artery disease No pertinent family history Social History Smoking and tobacco/nicotine status: never used tobacco/nicotine Alcohol intake: never Substance/Drug Use: never Household members: family Housing: House Course Vital Signs: Vital signs: Vital Signs Temperature 101.2 F H 11/12/24 16:23 Pulse Rate 87 11/12/24 17:07 Respiratory Rate 20 H 11/12/24 17:04 Blood Pressure 182/81 11/12/24 16:23 Pulse Oximetry 95 11/12/24 17:04 Oxygen Delivery Me thod Nasal Cannula 11/12/24 17:04 Oxygen Flow Rate 2.5 11/12/24 17:04 MDM - SOB/Dyspnea Medical Decision Making MEDICAL DECISION MAKING: Differential diagnoses considered but not limited to: Pneumonia, pneumothorax, viral pneumonia, compensatory tachypnea for systemic illness, sepsis, multidrug-resistant organism. Vitals nonactionable. Given history, examination, and pretest risk factors, with hospitalization 5 months ago for similar symptoms, feel patient is likely experiencing pneumonia again. Chest x-ray appears to have right lower lobe consolidation by my read. Initiated 2 g cefepime for pneumonia treatment with hypoxic respiratory failure. Patient requiring 2 L nasal cannula at rest to maintain her oxygen saturations. Patient has increased work of breathing but does not exhibit signs of impending respiratory failure. Spoke to on-call hospitalist who will admit the patient for further treatment. DISPO: Admit hospitalist Cristofer Becerra MD Staff physician, [facility] [phone] Lab Data 11/12/24 16:53 11/12/24 16:53 Labs/Radiology: Laboratory Results WBC 10.08 10^3/uL (3.29-11.43) 11/12/24 16:53 RBC 3.56 10^6/uL (3.85-5.65) L 11/12/24 16:53 Hgb 10.10 g/dL (11.27-16.99) L 11/12/24 16:53 Hct 33.3 % (36-47) L 11/12/24 16:53 MCV 93.5 fl (85-98) 11/12/24 16:53 MCH 28.4 pg (27-33) 11/12/24 16:53 MCHC 30.3 g/dL (30-55) 11/12/24 16:53 RDW 15.2 % (12.1-15.1) H 11/12/24 16:53 Plt Count 219 10^3/cmm (157-399) 11/12/24 16:53 MPV 9.0 fL (7.4-10.4) 11/12/24 16:53 Neut % (Auto) 85.9 % 11/12/24 16:53 Lymph % (Auto) 7.3 % 11/12/24 16:53 [place] % (Auto) 4.1 % 11/12/24 16:53 Eos % (Auto) 2.1 % 11/12/24 16:53 Baso % (Auto) 0.2 % 11/12/24 16:53 Neut # (Auto) 8.66 10^3/uL (1.8-7.7) H 11/12/24 16:53 Lymph # (Auto) 0.7 10^3/uL (0.8-4.8) L 11/12/24 16:53 [place] # (Auto) 0.4 10^3/uL (0.2-0.9) 11/12/24 16:53 Eos # (Auto) 0.2 10^3/uL (0.0-0.8) 11/12/24 16:53 Baso # (Auto) 0.0 10^3/uL (0.0-0.1) 11/12/24 16:53 Nucleated RBC % (auto) 0 % 11/12/24 16:53 Nucleated RBCs # 0.0 /100WBC 11/12/24 16:53 Specimen Type Arterial 11/12/24 17:01 Sample Site Radial, right 11/12/24 17:01 ABG pH 7.45 (7.35-7.45) 11/12/24 17:01 ABG pCO2 43.0 mmHg (35-45) 11/12/24 17:01 ABG pO2 71.7 mmHg (80.0-100.0) L 11/12/24 17:01 ABG PO2/FiO2 Ratio 224 11/12/24 17:01 ABG HCO3 29.7 mmol/L (22-26) H 11/12/24 17:01 ABG Base Excess 5.1 mmol/L (-2.0-2.0) H 11/12/24 17:01 Vicente Test Pos 11/12/24 17:01 Hematocrit 32.1 % (37-47) L 11/12/24 17:01 O2 Delivery Device Nc 11/12/24 17:01 O2 Liters/Min 3.0 % 11/12/24 17:01 FiO2 32.0 % 11/12/24 17:01 Antique Jewelry Repairer ID glc 11/12/24 17:01 Sodium 137 mmol/L (136-145) 11/12/24 16:53 Potassium 4.7 mmol/L (3.5-5.1) 11/12/24 16:53 Chloride 99 mmol/L (98-107) 11/12/24 16:53 Carbon Dioxide 27 mmol/L (22-29) 11/12/24 16:53 Anion Gap 15.7 (5-19) 11/12/24 16:53 BUN 7 mg/dL (6-20) 11/12/24 16:53 Creatinine 0.5 mg/dL (0.5-0.9) 11/12/24 16:53 GFR Calculation 127.2 mL/min (90-130) 11/12/24 16:53 Calculated Osmolality 287 mOsm/kg (285-295) 11/12/24 16:53 Lactic Acid 1.2 mmol/L (0.5-2.2) 11/12/24 16:53 Calcium 9.5 mg/dL (8.5-10.5) 11/12/24 16:53 Total Bilirubin 0.4 mg/dL (0.15-1.2) 11/12/24 16:53 Total Protein 7.0 g/dL (6.6-8.7) 11/12/24 16:53 Albumin 3.7 g/dL (3.5-5.2) 11/12/24 16:53 Globulin 3.3 g/dL (1.3-4.6) 11/12/24 16:53 XR interpretation done by ED provider, pending radiology final review Discharge Plan Discharge Patient Disposition: Admitted As Inpatient Clinical Impression: Pneumonia Qualifiers: Pneumonia type: due to unspecified organism Laterality: right Lung location: lower lobe of lung Qualified Code(s): J18.9 - Pneumonia, unspecified organism Condition: Stable Discharge Diet: Advance as tolerated Discharge Activity: Resume usual activity Coding Level of Care Code ED Solar Sales Associate for Nikolai Lentz
[2024-11-12 17:32] LABS: Lactic Sepsis W/Reflex 1.2 mmol/L (0.5-2.2)
--- NOTE | 2024-11-12 17:33 | ECG_ITS ---
[facility]: 2024[facility]12 Pat Name: Camilla Tavares Department: Room: Gender: Female Conference Planning Manager: : 1965 Requested By: Cristofer Becerra Order Number: [id number] Aria MD: Remigio Sheldon M.D. Measurements Intervals [place] Rate: 81 P: 34 [place]: 169 QRS: -7 QRSD: 100 T: 49 QT: 387 QTc: 451 Interpretive Statements SINUS RHYTHM LOW QRS VOLTAGE IN PRECORDIAL LEADS [QRS DEFLECTION < 1.0 mV IN CHEST LEADS] POSSIBLE ANTERIOR MYOCARDIAL INFARCTION , OF INDETERMINATE AGE [30 ms Q WAVE IN V3/V4, OR R < 0.2 mV IN V4] Compared to ECG 09/12/2024 15:03:19 Low QRS voltage now present Myocardial infarct finding still present Electronically Signed On 11-15-2024 08:19:06 CDT by Remigio Sheldon M.D. [email or web address]
--- NOTE | 2024-11-12 17:36 | USCV_ITS ---
Camilla Tavares Age: 59 Gender: F : 1965 Exam Date: 11/12/2024 18:49 Ordering Phys: Jori Machado MD Technologist: Donaldo Mosley Exam Location: [facility] [place] Indication: chf BP: 182 / 81 HR: 82 Rhythm: Sinus Technical Quality: Adequate MEASUREMENTS (Male / Female) Normal Values 2D ECHO LVOT Diameter 2.1 cm LV Ejection Fraction MOD 4C 73.1 % LV Ejection Fraction MOD 2C 66.8 % LV Ejection Fraction 2C AL 64.9 % LA Diameter 4.2 cm RA Systolic Volume 4C AL 70.1 ml RA Systolic Volume 4C MOD 68.1 ml LA Sys Volume AL 89.5 cm cubed LA Sys Volume Index AL 31.8 cm cubed/m squared Aorta at Sinotubular Diameter 2.2 cm IVC Diameter 1.7 cm DOPPLER AV Peak Velocity 232.0 cm/s LVOT Peak Velocity 111.0 cm/s AV Area Cont Eq vti 1.8 cm squared AV Area Cont Eq pk 1.7 cm squared MV Peak Velocity 201.0 cm/s MV Area PHT 8.8 cm squared Mitral E to A Ratio 0.9 TR Peak Velocity 218.0 cm/s TR Peak Gradient 19.0 mmHg TR Mean Velocity 171.0 cm/s TR Mean Gradient 12.4 mmHg TR Velocity Time Integral 50.9 cm PV Peak Velocity 109.0 cm/s RV Ejection Time 0.2 s FINDINGS Left Ventricle Normal left ventricular size, systolic function and wall thickness, with no regional wall motion abnormalities. Left ventricular ejection fraction is estimated at 60 %. Grade I/IV diastolic dysfunction (abnormal relaxation filling pattern), normal to mildly elevated filling pressures. Right Ventricle The right ventricle is normal in size and function. Right Atrium The right atrium is normal in size. Left Atrium The left atrium is normal in size. Mitral Valve Structurally normal mitral valve without significant stenosis or prolapse. There is no mitral regurgitation. Aortic Valve Moderate aortic valve calcification. Mild aortic valve stenosis, mean gradient 10.5 mmHg, KASSI 1.8 cm squared.trace aortic valve regurgitation. Tricuspid Valve Structurally normal tricuspid valve without significant stenosis or regurgitation. Pulmonary artery systolic pressure is normal. Pulmonic Valve Structurally normal pulmonic valve without significant stenosis. There is no pulmonic regurgitation. Pericardium Normal pericardium without effusion. Aorta Normal ascending aorta dimension. IVC The inferior vena cava appears normal. CONCLUSIONS Normal left ventricular size, systolic function and wall thickness, with no regional wall motion abnormalities. Left ventricular ejection fraction is estimated at 60 %. Grade I/IV diastolic dysfunction (abnormal relaxation filling pattern), normal to mildly elevated filling pressures. Moderate aortic valve calcification. Mild aortic valve stenosis, mean gradient 10.5 mmHg, KASSI 1.8 cm squared.trace aortic valve regurgitation. There is no pericardial effusion. Right atrial pressure is around 5 mm of mercury. Wayne Wilson MD (Electronically Signed) Final Date: 12 November 2024 21:19 S
--- NOTE | 2024-11-12 17:37 | PM.HP ---
Providers/Chief Complaint Admitting Physician: Dr. Machado Primary Care Provider: Marlon Bowman MD Chief Complaint: SOB History of Present Illness Camilla Tavares is a 59 year old female with past medical history of morbid obesity, type 2 diabetes mellitus, hypertension, positive cardiac stress test, diastolic heart failure, presents to the ER today because of difficulty in breathing, cough which started acutely on Thursday morning. Patient states on Thursday night she ran out of the fluid for her CPAP and thinks that made her sinuses dry and since then her difficulty breathing and cough has been getting worse. She has been complaining of expectoration and subjective feel of fever since yesterday. Difficulty in breathing gets worse on exertion. Denies any nausea, vomiting, headache. Any changes in the medications. Denies any chest pain, orthopnea. Review of Systems General: Reports: 10 or more systems reviewed and unremarkable except in HPI and below Const: Denies: fever(s), chills, body aches, change in appetite, change in weight, malaise, night sweats, diaphoresis, change in sleep pattern, daytime sleepiness or snoring Eyes: Denies: change in vision, blurry vision, photophobia, eye discomfort or eye discharge ENMT: Denies: throat pain, enlarged tonsils, hoarseness, mouth pain, oral sores, dry mouth, tinnitus, nasal congestion or post nasal drip Card: Denies: chest pain, palpitations, irregular heart rhythm, edema, swelling of feet/ankles, lightheadedness, syncope, pre-syncope, dyspnea on exertion, orthopnea, leg pain with exertion or acrocyanosis Resp: Denies: dyspnea, productive cough, non-productive cough, wheezing, stridor, pain on inspiration, change in phlegm color, hemoptysis or chest congestion GI: Denies: abdominal pain, nausea, vomiting, hematemesis, coffee ground emesis, dysphagia, heartburn, diarrhea, constipation, bloating, GI cramping, change in bowel habits, pain on defecation, hematochezia or melena : Denies: flank pain, dysuria, urinary frequency, urinary urgency, urinary hesitancy, nocturia or hematuria Musc: Denies: neck pain, back pain, extremity pain, joint pain, joint swelling, joint redness, joint stiffness or limited range of motion Neuro: Denies: headache(s), numbness in extremities, weakness in extremities, sensory changes, lack of coordination, difficulty walking, frequent falls, dizziness, vertigo, confusion, Slurred speech present, difficulty communicating thoughts or seizure-like activity Psych: Denies: anxiety, depression, mood swings, panic attacks, hopelessness or irritability Endo: Denies: polyuria, polydipsia, tired all the time, cold intolerance, excessive sweating, flushing or heat intolerance Hudson/Lymph: Denies: easy bruising or easy bleeding All/Imm: Denies: tongue swelling, facial swelling or acute wheezing Medications/Allergies Home Medications ?Medication ?Instructions ?Recorded ?Confirmed ?Last Taken ?Type acetaminophen 500 mg tablet 1,000 mg PO Q6H PRN Pain 07/09/21 11/12/24 09/11/24 20:00 History ferrous sulfate 325 mg (65 mg 325 mg PO BEDTIME 07/09/21 11/12/24 09/11/24 19:00 History iron) tablet (iron) ibuprofen 200 mg tablet 400 mg PO Q6H PRN Pain 03/03/22 11/12/24 09/11/24 19:00 History Nebulizer #1 ea 03/06/22 11/12/24 Unknown Rx blood-glucose sensor (Dexcom G6 #3 ea 01/08/24 11/12/24 Unknown Rx Sensor device) blood-glucose transmitter (Dexcom #1 ea 01/08/24 11/12/24 Unknown Rx G6 Transmitter device) 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-glucose,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,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 #1 ea 01/08/24 11/12/24 Unknown Rx (Dexcom G6 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 Inspector) rosuvastatin 20 mg tablet 20 mg PO QPM #90 tabs 05/23/24 11/12/24 09/11/24 18:00 Rx metformin 500 mg tablet,extended 500 mg PO BID #60 tabs 06/13/24 11/12/24 09/11/24 19:00 Rx release 24 hr furosemide 40 mg tablet 40 mg PO DAILY PRN swelling 06/21/24 11/12/24 Unknown History gabapentin 100 mg capsule 100 mg PO TID 06/21/24 11/12/24 09/11/24 20:00 History potassium chloride 10 mEq See Rx Instructions .Route .COMPLEX 06/21/24 11/12/24 Unknown History tablet,extended release budesonide-formoterol HFA 80 2 inh inhalation BID #10.2 grams 06/24/24 11/12/24 Unknown Rx mcg-4.5 mcg/actuation aerosol inhaler (Symbicort) tiotropium bromide 1.25 2 inh inhalation DAILY #4 grams 06/24/24 11/12/24 Unknown Rx mcg/actuation mist for inhalation (Spiriva Respimat) hydrochlorothiazide 12.5 mg tablet 12.5 mg PO BEDTIME #30 tabs 07/04/24 11/12/24 09/11/24 20:00 Rx lisinopril 20 mg tablet 20 mg PO DAILY #30 tabs 09/12/24 11/12/24 Unknown Rx fluoxetine 20 mg capsule See Rx Instructions .Route 10/03/24 11/12/24 Unknown Rx .COMPLEX #30 caps fluoxetine 40 mg capsule See Rx Instructions .Route 10/03/24 11/12/24 Unknown Rx .COMPLEX #30 caps sitagliptin phosphate 100 mg 100 mg PO QPM #30 tabs 10/03/24 11/12/24 Unknown Rx tablet (Januvia) ropinirole 2 mg tablet 2 mg PO DAILY #30 tabs 10/13/24 11/12/24 Unknown Rx dulaglutide 0.75 mg/0.5 mL 0.75 mg (0.5 mL) SUBCUT Q7D #2 mL 11/08/24 11/12/24 Unknown Rx subcutaneous pen injector (Trulicity) albuterol sulfate 90 mcg/actuation 2 puff inhalation QID PRN 11/12/24 11/12/24 Unknown History aerosol inhaler Shortness Of Breath Or Wheezing amoxicillin 875 mg-potassium 1 tab PO BID 5 days #10 tabs 11/13/24 Unknown Rx clavulanate 125 mg tablet dapagliflozin propanediol 10 mg 10 mg PO DAILY 30 days #30 tabs 11/13/24 Unknown Rx tablet (Farxiga) insulin glargine 100 unit/mL (3 80 unit (0.8 mL) SUBCUT BID #15 mL 11/13/24 11/12/24 Unknown Rx mL) subcutaneous pen (Lantus Solostar U-100 Insulin) insulin lispro 100 unit/mL 8 unit SUBCUT TID #15 mL 11/13/24 Unknown Rx subcutaneous pen (Humalog KwikPen (U-100) Insulin) ipratropium 0.5 mg-albuterol 3 mg 3 ml inhalation Q8H #180 mL 11/13/24 Unknown Rx (2.5 mg base)/3 mL nebulization soln levofloxacin 750 mg tablet 750 mg PO Q24H 7 days #7 tabs 11/13/24 Unknown Rx prednisone 10 mg tablet 40 mg PO DIRECTED 5 days #20 11/13/24 Unknown Rx tabs Allergies Allergy/AdvReac Type Severity Reaction Status Date / Time No Known Allergies Allergy Verified 06/21/24 16:11 PFSH Acute PFSH: Medical History (Updated 11/13/24 @ 12:20 by Jori Machado MD) Morbid obesity NICOLÁS on CPAP Asthma Diabetes Family history of thyroid disease Family history of [place] (myocardial infarction) Surgical History H/O: hysterectomy Cancer - Removal of both ovaries and cervix No pertinent past surgical history Family History Sister Cancer Nasopharyngeal cancer, junctional tumor Other Diabetes Family history of premature coronary artery disease No pertinent family history Social History Smoking and tobacco/nicotine status: never used tobacco/nicotine Alcohol intake: never Substance/Drug Use: never Household members: family Housing: House Vitals/I&O/Wt Last Vital Signs Temp 101.2 F H 11/12/24 16:23 Pulse 87 11/12/24 17:07 Resp 20 H 11/12/24 17:04 BP 182/81 11/12/24 16:23 Pulse Ox 95 11/12/24 17:04 O2 Del Method Nasal Cannula 11/12/24 17:04 O2 Flow Rate 2.5 11/12/24 17:04 Weight last 48 hrs Weight 158.757 kg Physical Exam Narrative: General: No acute distress, AO x3, morbidly obese, cushingoid HEENT: PERRLA, pupils bilaterally equal and reactive Chest: Bilateral bronchial breath sounds over lung vincent occasional rhonchi, decreased air entry audible all over lung vincent CVS: S1-S2 regular, no murmurs, no tachycardia, no gallops, no rubs Abdomen: Soft, nontender, no organomegaly, bowel sounds present Neuro: No focal deficits, no facial deformity, AO x3, power 5/5 in all limbs Data 11/13/24 04:49 11/13/24 04:49 Micro: Microbiology 11/12/24 16:53 Blood Culture - Preliminary Blood SPECIMEN COLLECTED 11/12/24 17:00 Blood Culture - Preliminary Blood SPECIMEN COLLECTED A&P Assessment and plan 1. Acute hypoxemic respiratory failure: 2. Pneumonia: 3. Diabetes mellitus type 2, uncontrolled: 4. HTN (hypertension): 5. Abnormal stress test: 6. Exertional shortness of breath: 7. NICOLÁS on CPAP: 8. Morbid obesity: Plan: Hypoxic respiratory failure: Most likely in setting of pneumonia. Patient does have history of diastolic heart failure. Check blood culture, sputum culture, urine Legionella, bacterial antigen, MRSA swab, respiratory viral panel, trend procalcitonin. Empirically start on IV vancomycin and Zosyn for now. Add azithromycin for atypical coverage. Will discontinue vancomycin if MRSA negative. Aggressive pulmonary toilet with incentive spirometry. Out of bed to chair. Oxygen supplementation keeping saturation over 90%. Pulmicort twice daily, DuoNeb every 6 hour. Patient has a history of diastolic heart failure with last known echocardiogram from 2021 showing EF of 60 to 65%, grade 1 diastolic dysfunction, dilated IVC with decreased respiratory variation. Repeat echocardiogram. Check proBNP, D-dimer. Fluid restriction to less than 1500 cc. IV Lasix 40 mg one-time. Strict input output charting, daily weights. Depending on D-dimer and if renal functions appropriate will plan for CT chest versus CTA chest. Type 2 diabetes mellitus: Recent A1c of 9.3. Insulin sliding scale at high dose protocol. Lantus 50 units twice daily. Hypertension: Goal blood pressure less than 140/90 mmHg. Continue with home dose of lisinopril. Uptitrate as per goal blood pressure. Positive stress test: Positive stress test back in November 2021. Cycle troponin. A1c 9.3, check lipid panel. Further treatment depending on troponin cycle. Otherwise continue home dose of fluoxetine, gabapentin, statin, Requip. Further treatment plan depending on the result of BMP and investigations ordered. Full code Carb consistent diet Protonix for PUD prophylaxis Heparin for DVT prophylaxis. PDMP PDMP Reviewed: Not Reviewed Attestations Medical Necessity Statement*: Admission for 2 midnights for management of hypoxic respiratory failure in setting of pneumonia, diastolic heart failure Diagnoses Acute hypoxemic respiratory failure J96.01 Pneumonia J18.9 Diabetes mellitus type 2, uncontrolled HTN (hypertension) I10 Abnormal stress test R94.39 Exertional shortness of breath R06.02 NICOLÁS on CPAP G47.33 Morbid obesity E66.01
[2024-11-12 17:42] LABS: Alanine Aminotransferase 35 U/L (0-33); Albumin Level 3.7 g/dL (3.5-5.2); Alkaline Phosphatase 116 U/L (35-105); Anion Gap 15.7 (5-19); Aspartate Amino Transferase 42 U/L (0-32); Blood Urea Nitrogen 7 mg/dL (6-20); Calcium 9.5 mg/dL (8.5-10.5); Carbon Dioxide 27 mmol/L (22-29); Chloride 99 mmol/L (98-107); Creatinine Clr Calc Pharmacy 194.1748; Globulin 3.3 g/dL (1.3-4.6); Glucose 181 mg/dL (65-115); NT Pro B Type Natriuretic Pept 443 pg/mL (0-125); Osmolality Calculated 287 mOsm/kg (285-295); Potassium 4.7 mmol/L (3.5-5.1); Sodium 137 mmol/L (136-145); Total Protein 7.0 g/dL (6.6-8.7)
--- NOTE | 2024-11-12 17:53 | CTR_ITS ---
PROCEDURE INFORMATION: Exam: CT Chest Without Contrast; Diagnostic Exam date and time: 11/12/2024 6:08 PM Age: 59 years old Clinical indication: Cough and shortness of breath; Cough with SOB. ; Additional info: Resp failure TECHNIQUE: Imaging protocol: Diagnostic computed tomography of the chest without contrast. Radiation optimization: All CT scans at this facility use at least one of these dose optimization techniques: automated exposure control; mA and/or kV adjustment per patient size (includes targeted exams where dose is matched to clinical indication); or iterative reconstruction. COMPARISON: CT angio chest PE protcl [id number] 06/21/2024 7:07 PM RADIATION DOSE METRICS: Total DLP (mGy-cm): 770.19 FINDINGS: Lungs: Bandlike opacity in the inferior aspect of the right upper lobe, likely atelectasis with other etiologies not totally excluded. Pleural spaces: Unremarkable. No pneumothorax. No pleural effusion. Heart: Unremarkable. No cardiomegaly. No pericardial effusion. Lymph nodes: Unremarkable. No enlarged lymph nodes. Vasculature: Aortic and coronary atherosclerosis. Adrenal glands: Right adrenal nodule measuring up to 2.0 cm, likely benign adenoma. Bones/joints: Unremarkable. No acute fracture. Soft tissues: Unremarkable. CT/CT chest wo con [id number] IMPRESSION: No definite acute infiltrate or effusion. Bandlike opacity in the inferior aspect of the right upper lobe, likely atelectasis with other etiologies not totally excluded. Right adrenal nodule measuring up to 2.0 cm, likely benign adenoma. COMMENTS: Consistent with the [employer]'s Incidental Findings Committee white paper (J Am Ovidio Radiol 2017): For any incidental adrenal lesion greater than or equal to 1 cm but less than or equal to 4 cm classified in this report as benign, likely benign, or containing fat (including classification as an adenoma or myelolipoma), no follow-up imaging is recommended per consensus recommendations based on imaging criteria. Further lab evaluation could be pursued if warranted based on clinical findings.
--- NOTE | 2024-11-12 18:09 | PC.NURSE ---
Lasix 60mg and Vancomycin 1,500mg ordered @1800 delayed, pt in CT at this time
[2024-11-12 18:10] LABS: Procalcitonin 0.17 ng/mL (0-0.5); Thyroid Stimulating Hormone 2.02 uIU/mL (0.27-4.20)
--- NOTE | 2024-11-12 18:11 | PC.NURSE ---
educated pt on need for urine sample x3 times. pt refusing to give sample at this time, states doesn't feel like urinating yet, pt refusing straight catheter.
[2024-11-12 18:21] LABS: Iron 34 ug/dL (37-145); Total Iron Binding Capacity 270 mcg/dl; Unsaturated Iron Binding 236 ug/dL (112-347)
[2024-11-12] MEDS: FUROsemide 10 mg/mL SDV 10mL 60 MG IVP (18:36)
[2024-11-12 19:30] LABS: Coronavirus 229E,HKU1,NL63,OC4 Not Detected (NOT DETECT); Parainfluenza Virus Type 1 Not Detected (NOT DETECT); Parainfluenza Virus Type 2 Not Detected (NOT DETECT); Parainfluenza Virus Type 3 Not Detected (NOT DETECT); Parainfluenza Virus Type 4 Not Detected (NOT DETECT); SARS-COV-2 Not Detected (NOT DETECT)
[2024-11-12 19:33] LABS: Glucose Urine UA Negative (Normal); Nitrate Urine Negative (Negative); Specific Gravity, Urine 1.009 (1.005-1.030)
[2024-11-12 19:38] LABS: Add Urine Microscopic? YES
[2024-11-12 19:58] LABS: MRSA PCR OZH (swab) NOT DETECTED (Not Detecte)
[2024-11-12] MEDS: piperacillin-tazobactam 3.375 GM in sodium chloride 0.9% (plus) 50 ML IV (20:37)
[2024-11-12 22:14] LABS: Vitamin B12 1001 pg/mL (232-1245)
[2024-11-12] MEDS: insulin glargine 100 units/1 mL 50 UNIT SUBCUT (22:38)
[2024-11-12] MEDS: heparin 5,000 unit/mL INJ 1 mL 5000 UNIT SUBCUT (22:41)
[2024-11-12] MEDS: pantoprazole 40 mg SDV IVP (22:42)
[2024-11-13] VITALS: BP 128/65; PULSE 75; RESP 28; TEMP 36.6; O2SAT 90
[2024-11-13] MEDS: piperacillin-tazobactam 3.375 GM in sodium chloride 0.9% (plus) 50 ML IV (03:08)
[2024-11-13 04:00] VITALS: BP 113/54; PULSE 76; RESP 14; TEMP 36.6; O2SAT 96
[2024-11-13 05:23] LABS: Hematocrit 30.5 % (36-47); Hemoglobin 9.10 g/dL (11.27-16.99); Mean Corpuscular HGB Conc 29.8 g/dL (30-55); Mean Corpuscular Hemoglobin 28.3 pg (27-33); Mean Corpuscular Volume 94.7 fl (85-98); Nucleated Red Blood Cells % 0 %; Platelet Count 226 10^3/cmm (157-399); Red Blood Count 3.22 10^6/uL (3.85-5.65); White Blood Count 9.13 10^3/uL (3.29-11.43)
[2024-11-13 05:51] LABS: Alanine Aminotransferase 25 U/L (0-33); Albumin Level 3.5 g/dL (3.5-5.2); Alkaline Phosphatase 104 U/L (35-105); Anion Gap 13.6 (5-19); Aspartate Amino Transferase 26 U/L (0-32); Blood Urea Nitrogen 8 mg/dL (6-20); Calcium 8.9 mg/dL (8.5-10.5); Carbon Dioxide 29 mmol/L (22-29); Chloride 95 mmol/L (98-107); Creatinine Clr Calc Pharmacy 158.7250; Globulin 2.9 g/dL (1.3-4.6); Glucose 199 mg/dL (65-115); Magnesium 1.7 mg/dL (1.7-2.3); Osmolality Calculated 282 mOsm/kg (285-295); Potassium 3.6 mmol/L (3.5-5.1); Sodium 134 mmol/L (136-145); Total Protein 6.4 g/dL (6.6-8.7)
[2024-11-13 05:53] LABS: Cholesterol 115 mg/dL (0-200); HDL Cholesterol 33 mg/dL (60-100); Procalcitonin 0.17 ng/mL (0-0.5); Triglycerides 138 mg/dL (0-150)
[2024-11-13 08:00] VITALS: BP 126/65; PULSE 62; PULSE 66; RESP 18; RESP 24; TEMP 36.4; O2SAT 93; O2SAT 96
[2024-11-13] MEDS: insulin glargine 100 units/1 mL 50 UNIT SUBCUT (09:01)
[2024-11-13] MEDS: heparin 5,000 unit/mL INJ 1 mL 5000 UNIT SUBCUT (09:02)
--- NOTE | 2024-11-13 10:24 | P.DS_ITS ---
Discharge Providers Date of Admission: 11/13/24 09:42 Date of Discharge: November 13, 2024 Attending Provider at Admission: Jori Machado MD Attending Provider at Discharge: Jori Machado MD Primary Care Provider: Marlon Bowman MD Reason for Visit Reason for Visit: SOB Hospital Course Hospital Course Camilla Tavares is a 59 year old female with past medical history of morbid obesity, type 2 diabetes mellitus, hypertension, positive cardiac stress test, diastolic heart failure, presents to the ER today because of difficulty in breathing, cough which started acutely on Thursday morning. Patient states on Thursday night she ran out of the fluid for her CPAP and thinks that made her sinuses dry and since then her difficulty breathing and cough has been getting worse. She has been complaining of expectoration and subjective feel of fever since yesterday. Difficulty in breathing gets worse on exertion. Denies any nausea, vomiting, headache. Any changes in the medications. Denies any chest pain, orthopnea. Patient's CT head during hospitalization was negative for pneumonia. Respiratory viral panel came back positive for enterovirus. She responded well to the treatment. Home O2 evaluation was done prior to discharge. She has been discharged in hemodynamically stable condition on oral steroids, daily Lasix along with nebulization treatment. She is advised to start using Lantus 80 units twice daily along with 8 units of insulin 3 times a day. She is also been discharged on oral Augmentin and Levaquin for 5 more days. Physical Exam Narrative: General: No acute distress, AO x3, morbidly obese, cushingoid HEENT: PERRLA, pupils bilaterally equal and reactive Chest: Bilateral bronchial breath sounds over lung vincent occasional rhonchi, decreased air entry audible all over lung vincent CVS: S1-S2 regular, no murmurs, no tachycardia, no gallops, no rubs Abdomen: Soft, nontender, no organomegaly, bowel sounds present Neuro: No focal deficits, no facial deformity, AO x3, power 5/5 in all limbs Discharge Data Studies Completed and Pending Completed Studies During Hospitalization Category Date Time Status CT chest wo con [id number] Stat Cat Scan 11/12/24 17:53 Completed XR chest 1V portable [id number] Stat Exams 11/12/24 16:38 Completed CV. echo complete* [id number] Routine Ultrasound 11/12/24 17:36 Completed Pending at discharge Category Date Time Status Blood Culture Stat Lab 11/12/24 16:53 Results Complete Blood Count w/Auto AM LABS Lab 11/14/24 04:00 Ordered Complete Blood Count w/Auto AM LABS Lab 11/15/24 04:00 Ordered Comprehensive Metabolic Panel AM LABS Lab 11/14/24 04:00 Ordered Comprehensive Metabolic Panel AM LABS Lab 11/15/24 04:00 Ordered Magnesium AM LABS Lab 11/14/24 04:00 Ordered Magnesium AM LABS Lab 11/15/24 04:00 Ordered Phosphorus AM LABS Lab 11/14/24 04:00 Ordered Phosphorus AM LABS Lab 11/15/24 04:00 Ordered Sputum Culture and Gram Stain Stat Lab 11/12/24 17:36 Uncollected Radiology Impressions Chest X-Ray 11/12/24 16:38 IMPRESSION: Patchy opacity at the lung bases, nonspecific, can not exclude atelectasis or infiltrates. Poor visualization of the retrocardiac region and left costophrenic angle, can not exclude small effusion. Aortic atherosclerosis. Chest CT 11/12/24 17:53 IMPRESSION: No definite acute infiltrate or effusion. Bandlike opacity in the inferior aspect of the right upper lobe, likely atelectasis with other etiologies not totally excluded. Right adrenal nodule measuring up to 2.0 cm, likely benign adenoma. COMMENTS: Consistent with the [employer]'s Incidental Findings Committee white paper (J Am Ovidio Radiol 2017): For any incidental adrenal lesion greater than or equal to 1 cm but less than or equal to 4 cm classified in this report as benign, likely benign, or containing fat (including classification as an adenoma or myelolipoma), no follow-up imaging is recommended per consensus recommendations based on imaging criteria. Further lab evaluation could be pursued if warranted based on clinical findings. Echocardiogram: CONCLUSIONS Normal left ventricular size, systolic function and wall thickness, with no regional wall motion abnormalities. Left ventricular ejection fraction is estimated at 60 %. Grade I/IV diastolic dysfunction (abnormal relaxation filling pattern), normal to mildly elevated filling pressures. Moderate aortic valve calcification. Mild aortic valve stenosis, mean gradient 10.5 mmHg, KASSI 1.8 cm squared.trace aortic valve regurgitation. There is no pericardial effusion. Right atrial pressure is around 5 mm of mercury. Wayne Wilson MD (Electronically Signed) Final Date: 12 November 2024 Microbiology 11/12/24 19:05 Urine Kidney Bacterial Antigens - Final 11/12/24 16:53 Blood Blood Culture - Preliminary SPECIMEN COLLECTED 11/12/24 17:00 Blood Blood Culture - Preliminary SPECIMEN COLLECTED Laboratory Results WBC 9.13 10^3/uL (3.29-11.43) 11/13/24 04:49 RBC 3.22 10^6/uL (3.85-5.65) L 11/13/24 04:49 Hgb 9.10 g/dL (11.27-16.99) L 11/13/24 04:49 Hct 30.5 % (36-47) L 11/13/24 04:49 MCV 94.7 fl (85-98) 11/13/24 04:49 MCH 28.3 pg (27-33) 11/13/24 04:49 MCHC 29.8 g/dL (30-55) L 11/13/24 04:49 RDW 15.4 % (12.1-15.1) H 11/13/24 04:49 Plt Count 226 10^3/cmm (157-399) 11/13/24 04:49 MPV 9.1 fL (7.4-10.4) 11/13/24 04:49 Neut % (Auto) 78.0 % 11/13/24 04:49 Lymph % (Auto) 15.6 % 11/13/24 04:49 [place] % (Auto) 3.9 % 11/13/24 04:49 Eos % (Auto) 1.9 % 11/13/24 04:49 Baso % (Auto) 0.3 % 11/13/24 04:49 Neut # (Auto) 7.12 10^3/uL (1.8-7.7) 11/13/24 04:49 Lymph # (Auto) 1.4 10^3/uL (0.8-4.8) 11/13/24 04:49 [place] # (Auto) 0.4 10^3/uL (0.2-0.9) 11/13/24 04:49 Eos # (Auto) 0.2 10^3/uL (0.0-0.8) 11/13/24 04:49 Baso # (Auto) 0.0 10^3/uL (0.0-0.1) 11/13/24 04:49 Nucleated RBC % (auto) 0 % 11/13/24 04:49 Nucleated RBCs # 0.0 /100WBC 11/13/24 04:49 ESR 46 mm/hr (0-15) H 11/12/24 16:53 D-Dimer 1.20 ug/mLFEU (0-0.59) H 11/12/24 16:03 Specimen Type Arterial 11/12/24 17:01 Sample Site Radial, right 11/12/24 17:01 ABG pH 7.45 (7.35-7.45) 11/12/24 17:01 ABG pCO2 43.0 mmHg (35-45) 11/12/24 17:01 ABG pO2 71.7 mmHg (80.0-100.0) L 11/12/24 17:01 ABG PO2/FiO2 Ratio 224 11/12/24 17:01 ABG HCO3 29.7 mmol/L (22-26) H 11/12/24 17:01 ABG Base Excess 5.1 mmol/L (-2.0-2.0) H 11/12/24 17:01 Vicente Test Pos 11/12/24 17:01 Hematocrit 32.1 % (37-47) L 11/12/24 17:01 O2 Delivery Device Nc 11/12/24 17:01 O2 Liters/Min 3.0 % 11/12/24 17:01 FiO2 32.0 % 11/12/24 17:01 [employer]il[employer] Specialist ID glc 11/12/24 17:01 Sodium 134 mmol/L (136-145) L 11/13/24 04:49 Potassium 3.6 mmol/L (3.5-5.1) 11/13/24 04:49 Chloride 95 mmol/L (98-107) L 11/13/24 04:49 Carbon Dioxide 29 mmol/L (22-29) 11/13/24 04:49 Anion Gap 13.6 (5-19) 11/13/24 04:49 BUN 8 mg/dL (6-20) 11/13/24 04:49 Creatinine 0.5 mg/dL (0.5-0.9) 11/13/24 04:49 GFR Calculation 127.2 mL/min (90-130) 11/13/24 04:49 Glucose 199 mg/dL (65-115) H 11/13/24 04:49 POC Glucose 195 mg/dL (70-110) H 11/13/24 06:00 Calculated Osmolality 282 mOsm/kg (285-295) L 11/13/24 04:49 Lactic Acid 1.2 mmol/L (0.5-2.2) 11/12/24 16:53 Calcium 8.9 mg/dL (8.5-10.5) 11/13/24 04:49 Phosphorus 4.1 mg/dL (2.5-4.5) 11/13/24 04:49 Magnesium 1.7 mg/dL (1.7-2.3) 11/13/24 04:49 Iron 34 ug/dL (37-145) L 11/12/24 16:53 TIBC 270 mcg/dl 11/12/24 16:53 % Saturation 12.5 % (20-50) L 11/12/24 16:53 Unsat Iron Binding 236 ug/dL (112-347) 11/12/24 16:53 Total Bilirubin 0.4 mg/dL (0.15-1.2) 11/13/24 04:49 AST 26 U/L (0-32) 11/13/24 04:49 ALT 25 U/L (0-33) 11/13/24 04:49 Alkaline Phosphatase 104 U/L (35-105) 11/13/24 04:49 C-Reactive Protein 52.8 mg/L (0.0-4.9) H 11/12/24 16:53 NT-Pro-B Natriuret Pep 443 pg/mL (0-125) H 11/12/24 16:53 Total Protein 6.4 g/dL (6.6-8.7) L 11/13/24 04:49 Albumin 3.5 g/dL (3.5-5.2) 11/13/24 04:49 Globulin 2.9 g/dL (1.3-4.6) 11/13/24 04:49 Triglycerides 138 mg/dL (0-150) 11/13/24 04:49 Cholesterol 115 mg/dL (0-200) 11/13/24 04:49 LDL Cholesterol, Calc 54 mg/dL (50-129) 11/13/24 04:49 HDL Cholesterol 33 mg/dL (60-100) L 11/13/24 04:49 LDL/HDL Ratio 1.64 RATIO (0.00-3.22) 11/13/24 04:49 Cholesterol/HDL Ratio 3.48 mg/dL (0.0-4.40) 11/13/24 04:49 Vitamin B12 1001 pg/mL (232-1245) 11/12/24 16:53 Folate 7.1 ng/mL (4.8-37.3) 11/13/24 04:49 Procalcitonin 0.17 ng/mL (0-0.5) 11/13/24 04:49 TSH 2.02 uIU/mL (0.27-4.20) 11/12/24 16:53 Urine Color Yellow (Yellow) 11/12/24 19:05 Urine Appearance Clear (CLEAR) 11/12/24 19:05 Urine pH 5.0 (5-7) 11/12/24 19:05 Ur Specific [place] 1.009 (1.005-1.030) 11/12/24 19:05 Urine Protein Negative (Negative) 11/12/24 19:05 Urine Glucose (UA) Negative (Normal) 11/12/24 19:05 Urine Ketones Negative (Negative) 11/12/24 19:05 Urine Blood Negative (Negative) 11/12/24 19:05 Urine Nitrate Negative (Negative) 11/12/24 19:05 Urine Bilirubin Negative (Negative) 11/12/24 19:05 Urine Urobilinogen 0.2 mg/dL (Negative) 11/12/24 19:05 Ur Leukocyte Esterase Negative (Negative) 11/12/24 19:05 Urine RBC 0-2 /hpf (0-2) 11/12/24 19:05 Urine WBC 0-5 /hpf (0-5) 11/12/24 19:05 Ur Squamous Epith Cells 0-5 /hpf (0-5) 11/12/24 19:05 Amorphous Sediment Not Reportable 11/12/24 19:05 Urine Bacteria None seen /hpf (NONE) 11/12/24 19:05 Hyaline Casts 0-4 /lpf H 11/12/24 19:05 Nasal MRSA (PCR) Not detected (Not Detecte) 11/12/24 18:40 Adenovirus (PCR) Not detected (NOT DETECT) 11/12/24 17:31 C. pneumoniae DNA (PCR) Not detected (NOT DETECT) 11/12/24 17:31 Coronavirus 229E (PCR) Not detected (NOT DETECT) 11/12/24 17:31 Human Metapneumovir PCR Not detected (NOT DETECT) 11/12/24 17:31 Influenza A (H1) PCR Not detected (NOT DETECT) 11/12/24 17:31 Influ A (H1/09) PCR Not detected (NOT DETECT) 11/12/24 17:31 Influenza A (H3) PCR Not detected (NOT DETECT) 11/12/24 17:31 Influenza Type A (PCR) Not detected (NOT DETECT) 11/12/24 17:31 Influenza Type B (PCR) Not detected (NOT DETECT) 11/12/24 17:31 M. pneumoniae (PCR) Not detected (NOT DETECT) 11/12/24 17:31 Parainfluenza 1 (PCR) Not detected (NOT DETECT) 11/12/24 17:31 Parainfluenza 2 (PCR) Not detected (NOT DETECT) 11/12/24 17:31 Parainfluenza 3 (PCR) Not detected (NOT DETECT) 11/12/24 17:31 Parainfluenza 4 (PCR) Not detected (NOT DETECT) 11/12/24 17:31 RSV Type A (PCR) Not detected (NOT DETECT) 11/12/24 17:31 RSV Type B (PCR) Not detected (NOT DETECT) 11/12/24 17:31 Entero/Rhino (PCR) Detected (NOT DETECT) A 11/12/24 17:31 SARS-CoV-2 (PCR) Not detected (NOT DETECT) 11/12/24 17:31 Vitals Last Vital Signs Temp 97.6 F 11/13/24 08:00 Pulse 62 11/13/24 08:00 Resp 24 H 11/13/24 08:00 BP 126/65 11/13/24 08:00 Pulse Ox 93 11/13/24 08:00 O2 Del Method CPAP 11/13/24 08:00 O2 Flow Rate 3 11/13/24 08:00 Discharge Plan Discharge Patient Disposition: Home Condition: Stable Prescriptions: New amoxicillin-pot clavulanate 875-125 mg tablet 1 tab PO BID 5 Days Qty: 10 0RF dapagliflozin propanediol [Farxiga] 10 mg tablet 10 mg PO DAILY 30 Days Qty: 30 0RF insulin lispro [Humalog KwikPen Insulin] 100 unit/mL insulin pen 8 unit SUBCUT TID Qty: 15 0RF Protocol: Insulin Corrective High-Dose Regimen Condition: Fingerstick Blood Glucose Dose/Route: Insulin Units Condition: 141-180 mg/dl Dose/Route: 2 units/SQ Condition: 181-220 mg/dl Dose/Route: 4 units/SQ Condition: 221-260 mg/dl Dose/Route: 4 units/SQ Condition: 261-300 mg/dl Dose/Route: 8 units/SQ Condition: 301-350 mg/dl Dose/Route: 10 units/SQ Condition: 351-400 mg/dl Dose/Route: 12 units/SQ Condition: greater than 400 mg/dl Dose/Route: 14 units/SQ prednisone 10 mg tablet 40 mg PO DIRECTED 5 Days Qty: 20 0RF Taper: predniSONE 60-10 60 mg Daily for 2 Days and 0 Hour 50 mg Daily for 2 Days and 0 Hour 40 mg Daily for 2 Days and 0 Hour 30 mg Daily for 2 Days and 0 Hour 20 mg Daily for 2 Days and 0 Hour 10 mg Daily for 2 Days and 0 Hour Rx Instructions: see taper instructions levofloxacin 750 mg tablet 750 mg PO Q24H 7 Days Qty: 7 0RF ipratropium-albuterol 0.5 mg-3 mg(2.5 mg base)/3 mL Solution For Nebulization 3 ml inhalation Q8H Qty: 180 0RF Continued (DME) Nebulizer See Rx Instructions .Route .MEDSUPPLY Qty: 1 0RF Rx Instructions: As directed - Use every 6 hours as needed for dyspnea (DME) Dexcom G6 Sensor Device See Rx Instructions .ROUTE .MEDSUPPLY Qty: 3 6RF Rx Instructions: As directed (DME) Dexcom G6 Button Maker Misc See Rx Instructions .ROUTE .MEDSUPPLY Qty: 1 0RF Rx Instructions: As directed (DME) Dexcom G6 Transmitter Device See Rx Instructions .ROUTE .MEDSUPPLY Qty: 1 2RF Rx Instructions: As directed rosuvastatin 20 mg tablet 20 mg PO QPM Qty: 90 3RF metformin 500 mg tablet extended release 24 hr 500 mg PO BID Qty: 60 6RF hydrochlorothiazide 12.5 mg tablet 12.5 mg PO BEDTIME Qty: 30 6RF Januvia 100 mg tablet 100 mg PO QPM Qty: 30 6RF fluoxetine 20 mg capsule See Rx Instructions .ROUTE .COMPLEX Qty: 30 6RF Dose Instruction: TAKE 1 CAPSULE BY MOUTH EVERY DAY (TAKE WITH 40MG CAPSULE) Rx Instructions: TAKE 1 CAPSULE BY MOUTH EVERY DAY ALONG WITH 40MG TO=60MG TOTAL. fluoxetine 40 mg capsule See Rx Instructions .ROUTE .COMPLEX Qty: 30 6RF Dose Instruction: take ONE capsule BY MOUTH EVERY DAY (take with 20mg) Rx Instructions: TAKE ONE CAPSULE BY MOUTH EVERY DAY ALONG WITH 20MG TO=60MG TOTAL. ropinirole 2 mg tablet 2 mg PO DAILY Qty: 30 6RF Trulicity 0.75 mg/0.5 mL pen injector 0.75 mg SUBCUT Q7D Qty: 2 6RF Rx Instructions: Thursday potassium chloride 10 mEq tablet extended release See Rx Instructions .ROUTE .COMPLEX Rx Instructions: TAKE 1 TABLET BY MOUTH EVERY DAY WHEN TAKING FUROSEMIDE gabapentin 100 mg capsule 100 mg PO TID budesonide-formoterol [Symbicort] 80-4.5 mcg/actuation HFA aerosol inhaler 2 inh inhalation BID Qty: 10.2 2RF Spiriva Respimat 1.25 mcg/actuation mist 2 inh inhalation DAILY Qty: 4 1RF albuterol sulfate 90 mcg/actuation Hfa Aerosol Inhaler 2 puff INHALATION QID PRN (Reason: Shortness Of Breath Or Wheezing) acetaminophen 500 mg Tablet 1,000 mg PO Q6H PRN (Reason: Pain) ferrous sulfate [iron] 325 mg (65 mg iron) Tablet 325 mg PO BEDTIME ibuprofen 200 mg Tablet 400 mg PO Q6H PRN (Reason: Pain) lisinopril 20 mg tablet 20 mg PO DAILY Qty: 30 0RF Changed insulin glargine [Lantus Solostar U-100 Insulin] 100 unit/mL (3 mL) insulin pen 80 unit SUBCUT BID Qty: 15 6RF furosemide 40 mg tablet 40 mg PO DAILY Qty: 30 0RF Discharge Order = DC NOW: Discharge Order (Routine); Ordered 11/13/24 Ordered By: Jori Machado Other Ambulatory Orders: DME: Oxygen (Order) Location: None Selected Ordered By: Jori Machado Referrals: Marlon Bowman MD [Primary Care Provider, Family Practice] - 2 weeks Referral Note: We have notified your physician's clinic of the need for a follow-up appointment to be scheduled. If you have not heard from them within the next 2 business days, please call them directly. Discharge Diet: Advance as tolerated Discharge Activity: Resume usual activity Patient Instructions: Prednisone (By mouth) (Prednisone Intensol, Prednicot, Deltasone, Gerardo), Amoxicillin/Clavulanate Potassium (By mouth) (Augmentin, Augmentin..., Ipratropium/Albuterol (By breathing) (Combivent, Combivent..., Insulin Lispro (By injection) (Humalog, Humalog Pen, Lispro-PFC,..., Dapagliflozin (By mouth) (Farxiga), Sepsis (DC), Dyspnea (DC), Hypertension (DC), Opioid Safety, Pneumonia Stoplight, Patient Portal & Livia Instructions Activity Restrictions/Additional Instructions: Restrict fluid intake to less than 1500 cc, salt intake to less than 2 g daily. Advised to check his weight daily at home. Is advised that weight today would be the dry weight and if body weight increases by around 5 pounds, patient is to take an extra dose of Lasix daily till body weight comes down to weight today. If not able to come down to dry body weight in 1 week, then is to call cardiology office for further recommendations. Patient was counseled in detail to take medications regularly as prescribed. Continue taking Lantus but change the dose at 80 units twice daily. Take 8 units of lispro before each meal. Goal fasting blood sugar is less than 140 more than 100. Take prednisone 40 mg daily for next 5 days. Continue nebulization treatment with DuoNeb every 8 hours for 2 weeks. Follow-up with a primary care provider within next 1 week. Discharge Attestations Time Spent in Discharge Care*: greater than 30 min Specific Discharge Activities: educating patient, educating and/or supporting family/caregiver, discussing with pcp/other providers, discussing with outpatient case manager/social workers/dc planners, documenting/other paperwork and evaluating patient/reviewing data Status at Discharge: Cognitive status at discharge: cognitively intact , Behavioral status at discharge: cooperative , Functional status at discharge: uses cane/walker , Overall status at discharge: patient is progressing back to baseline Quality Metrics Clinical Quality Measures [ No reported AMI, CVA or VTE this stay] Coding Level of Care Code 13583 Total time (in minutes) for Discharge: 65
[2024-11-13 11:38] VITALS: BP 136/67; PULSE 59; RESP 20; TEMP 36.1; O2SAT 95
[2024-11-13 11:46] VITALS: O2SAT 85; O2SAT 90; O2SAT 92
[2024-11-13 12:09] VITALS: BP 136/67; PULSE 57; RESP 17; TEMP 36.2; O2SAT 92
== END 2024-11-13 14:22 | disposition home or self-care (01) ==
LOC: ER 20:21 → CSU 20:50
PROVIDERS: Admitting Provider Student in an Organized Health Care Education/Training Program; Emergency Provider General Practice; PCP Family Medicine; Visit Provider Student in an Organized Health Care Education/Training Program
DX: J96.01 Acute respiratory failure with hypoxia (principal); E11.9 Type 2 diabetes mellitus without complications; E66.01 Morbid (severe) obesity due to excess calories; Z68.41 Body mass index [BMI] 40.0-44.9, adult; I50.30 Unspecified diastolic (congestive) heart failure; G47.33 Obstructive sleep apnea (adult) (pediatric); J18.9 Pneumonia, unspecified organism; Z79.4 Long term (current) use of insulin; Z79.84 Long term (current) use of oral hypoglycemic drugs; I11.0 Hypertensive heart disease with heart failure
CPT/HCPCS: 36415; 36416; 36600; 71045; 71250; 80053; 80061; 81001; 82607; 82746; 82803; 82962; 83540; 83550; 83605; 83735; 83880; 84100; 84145; 84443; 85025; 85378; 85651; 86140; 86403; 87040; 87070; 87205; 87486; 87581; 87633; 93005; 93306; 94640; 94760; 96365; 96367; 96372; 96375; 99285; G0378; J0692; J1644; J1815; J1938; J2470; J2543; J3373; J7030; J7626; J9999; Q0144

== ENCOUNTER 2024-11-23 12:46 | Outpatient (CLI) | payer OTHER, SELFPAY ==
--- NOTE | 2024-11-23 12:45 | CT_ITS ---
WS: [id number] CT ABDOMEN AND PELVIS WITH AND WITHOUT CONTRAST HISTORY: Adrenal nodule TECHNIQUE: Unenhanced 5 mm axial imaging first performed through the abdomen. Post contrast imaging through the abdomen and pelvis. Oral contrast has not been provided. Sagittal and coronal reformats are submitted. All CT scans at [facility] use at least one of these dose optimization techniques: automated exposure control; mA and/or kV adjustment per patient size (includes targeted exams where dose is matched to clinical indication); or iterative reconstruction. CONTRAST: Omnipaque 350; 95 mL IV. DLP: 3379.05 mGy.cm COMPARISON: 06/21/2024, 02/19/2018 RIGHT adrenal gland: Well-circumscribed low-attenuation RIGHT adrenal gland nodule measures 12 mm in diameter. Absolute washout value of 87% consistent with an adenoma. Noncontrast Hounsfield units are also very low suggesting adenoma also. Normal LEFT adrenal gland. Lung bases are clear. Mild cardiomegaly. No hiatal hernia. Mildly enlarged liver. No intrahepatic duct dilatation. Normal portal vein. Normal gallbladder and spleen. Normal pancreas. Normal size kidneys with no mass or obstruction. Minimal atherosclerosis aorta. Normal mesenteric arteries. No GI tract obstruction. No colitis. Appendix is not identified. Small umbilical hernia contains fat only. No adenopathy or ascites. Vacuum disc phenomenon at L2 5 S1. Bilateral pars defects at L5. CT/CT abdomen pelvis wo/w [id number] IMPRESSION: 1. RIGHT adrenal adenoma, 12 mm in diameter. 2. No acute abdominal or pelvic abnormalities. 3. No renal obstruction. 4. Small fat-containing umbilical hernia. 5. Bilateral L5 pars defects.
[2024-11-23] MEDS: iohexol 350 mg/mL 500 mL Btl (per mL) IV (13:29)
== END 2024-11-23 12:47 | disposition home or self-care (01) ==
LOC: RAD 12:48
PROVIDERS: PCP Family Medicine; Visit Provider Family Medicine
DX: E27.9 Disorder of adrenal gland, unspecified (principal); D35.01 Benign neoplasm of right adrenal gland; K44.9 Diaphragmatic hernia without obstruction or gangrene; M43.06 Spondylolysis, lumbar region; I51.7 Cardiomegaly; M51.369 Other intervertebral disc degeneration, lumbar region without mention of lumbar back pain or lower extremity pain
CPT/HCPCS: 74178

== ENCOUNTER 2025-01-04 13:57 | Outpatient (CLI) | payer OTHER, SELFPAY ==
[2025-01-04 14:24] VITALS: PULSE 75; RESP 18; O2SAT 94
== END 2025-01-04 13:58 | disposition home or self-care (01) ==
LOC: RT 13:59
PROVIDERS: PCP Family Medicine; Visit Provider Internal Medicine
DX: J44.9 Chronic obstructive pulmonary disease, unspecified (principal); J98.8 Other specified respiratory disorders
CPT/HCPCS: 94060; 94726; 94729

== ENCOUNTER → 2025-01-05 07:50 | Outpatient (BNVA) | payer OTHER, SELFPAY | PROVIDERS: PCP Family Medicine; Visit Provider Family Medicine | DX: E53.8 Deficiency of other specified B group vitamins (principal); D64.9 Anemia, unspecified; E11.9 Type 2 diabetes mellitus without complications; Z51.81 Encounter for therapeutic drug level monitoring | CPT/HCPCS: 80053; 82607; 83036; 83540; 84466; 85025 ==

== ENCOUNTER 2025-01-10 20:26 | Outpatient (CLI) | payer OTHER, SELFPAY | END 2025-01-10 20:27 | disposition home or self-care (01) | LOC: SLEEP 20:27 | PROVIDERS: PCP Family Medicine; Referring Provider Internal Medicine; Visit Provider Internal Medicine Pulmonary Disease | DX: G47.33 Obstructive sleep apnea (adult) (pediatric) (principal); G47.36 Sleep related hypoventilation in conditions classified elsewhere | CPT/HCPCS: 95811 ==

== ENCOUNTER → 2025-02-10 12:16 | Outpatient (BNVA) | payer OTHER, SELFPAY | PROVIDERS: PCP Family Medicine; Visit Provider Family Medicine | DX: R30.0 Dysuria (principal) | CPT/HCPCS: 81000; 87086 ==